=== PATIENT | male | born 1940 | race Hispanic/Latino ===

== ENCOUNTER 2016-10-18 08:32 | Observation (INO) | payer MEDICARE, BC ==
[2016-10-18 08:33] VITALS: PULSE 77; BMI 28.7
--- NOTE | 2016-10-18 08:48 | ED PDOC ---
Arrival/HPI - General Time Seen by Provider: 10/18/16 08:35 Historian: Patient - History of Present Illness Narrative History of Present Illness (Text): 10/18/16 08:40 Meek Hein is a 76 year old male, whose past medical history includes cardiac pacemaker, IDDM, and chronic left diabetes foot ulcers, who presents to the emergency department complaining of chest pressure for a few days and associated shortness of breath yesterday. Patient also states that he experiences constipation for 6 days. Patient says he took suppository treatments with no relief. Patient denies any other complaints at this time. PMD: Dr. Megha Milligan Time/Duration: 24 hours (shortness of breath), < week (chest pressure) Symptom Onset: Gradual Symptom Course: Unchanged Activities at Onset: Rest Context: Home Past Medical History - Provider Review Nursing Documentation Reviewed: Yes - Cardiac Hx Cardiac Disorders: Yes Hx Angina: No Hx Cardiac Arrhythmia: No Hx Circulatory Problems: Yes Hx Congestive Heart Failure: Yes Hx Heart Murmur: No Hx Heart Transplant: No Hx Hypertension: Yes Hx Pacemaker: Yes Hx Peripheral Edema: Yes Hx Peripheral Vascular Disease: Yes Other/Comment: Coronary Artery Bypass Graft - Pulmonary Hx Respiratory Disorders: No - Neurological Hx Neurological Disorder: Yes (neuropathy b/l ankles/feet/no feeling) - HEENT Hx Cataracts: Yes Hx Glaucoma: Yes Hx Macular Degeneration: Yes - Renal Hx Renal Disorder: No - Endocrine/Metabolic Hx Endocrine Disorders: Yes Hx Diabetes Mellitus Type 2: Yes - Hematological/Oncological Hx Blood Disorders: No - Integumentary Hx Dermatological Disorder: No Hx Basal Cell Carcinoma: No - Musculoskeletal/Rheumatological Hx Musculoskeletal Disorders: Yes Hx Arthritis: Yes Hx Back Pain: Yes Hx Falls: Yes Hx Fractures: Yes Hx Herniated Disk: Yes Hx Unsteady Gait: Yes - Gastrointestinal Hx Gastrointestinal Disorders: Yes Other/Comment: Chronic Diarrhea - Genitourinary/Gynecological Hx Genitourinary Disorders: Yes Other/Comment: Diarrhea - Psychiatric Hx Psychophysiologic Disorder: No Hx Substance Use: No - Surgical History Hx Cardiac Catheterization: Yes Hx Coronary Stent: Yes Hx Open Heart Surgery: Yes Hx Valve Replacement: Yes Family/Social History - Physician Review Nursing Documentation Reviewed: Yes Family/Social History: No Known Family HX Smoking Status: Never Smoked Hx Alcohol Use: No Hx Substance Use: No Allergies/Home Meds Allergies/Adverse Reactions: Allergies No Known Allergies Allergy (Verified 03/06/17 16:28) Home Medications: Home Meds Medication Instructions Recorded Confirmed Carvedilol [Coreg] 3.125 mg PO BID 11/02/13 10/18/16 Furosemide [Lasix] 20 mg PO BID 11/02/13 10/18/16 amLODIPine [Norvasc] 10 mg PO DAILY 11/02/13 10/18/16 Aspirin [Ecotrin] 81 mg PO DAILY 04/28/16 10/18/16 Digoxin [Digitek] 125 mcg PO DAILY 04/28/16 10/18/16 Brimonidine 0.15% [Alphagan P 1 drop RIGHTEYE TID 05/31/16 10/18/16 0.15% Opht] Insulin Detemir [Levemir] 10 units SC HS 05/31/16 10/18/16 Ciprofloxacin [Cipro] 500 mg PO BID 10/18/16 10/18/16 Dorzolamide 2%/Timolol 0.5% 1 drop OD BID 10/18/16 10/18/16 [Cosopt 2%-0.5% Opht] Insulin Lispro Mix 75/25 [humalog 10 units SC TID 10/18/16 10/18/16 Mix 75/25 75 U/Ml-25 U/Ml 10 Ml] Sulfamethoxazole/Trimethoprim 160 - 800 mg PO BID 10/18/16 10/18/16 [Bactrim Ds Tablet] Physical Exam - Physical Exam Narrative Physical Exam (Text): - Review of Systems Constitutional: Normal. absent: Fatigue, Weight Change, Fevers Eyes: Normal ENT: Normal Respiratory: Shortness of breath absent: Cough, Sputum Cardiovascular: Chest Pressure absent: Palpitations, Syncope Gastrointestinal: Constipation absent: Abdominal pain, Diarrhea, Nausea, Vomiting Genitourinary: Normal. absent: Dysuria, Frequency, Hematuria Musculoskeletal: Normal. absent: Arthralgias, Back Pain, Neck Pain Skin: Normal Neurological: Normal absent: Focal Weakness Endocrine: Normal Hemo/Lymphatic: Normal Psychiatric: Normal - Physical exam Patient appears age appropriate, speaking full sentences without difficulty. - Systems Exam Head: Present: Atraumatic, Normocephalic Pupils: Present: PERRL Extraocular Muscles: Present: EOMI Conjunctiva: Present: Normal Mouth: Present: Moist Mucous Membranes Neck: Present: Normal Range of Motion. No: MIDLINE TENDERNESS, Paraspinal Tenderness Respiratory/Chest: Present: Clear to Auscultation, Good Air Exchange. No: Respiratory Distress, Accessory Muscle Use, Tachypnic Cardiovascular: Present: Regular Rate and Rhythm, Normal S1, S2, Peripheral Pulses Present. No: Murmurs Abdomen: Present: Normal Bowel Sounds, No: Tenderness, Peritoneal Signs, Rebound, Guarding, Distention Back: Present: Normal Inspection. No: Midline Tenderness, Paraspinal Tenderness Upper Extremity: Present: Normal Inspection. No: Cyanosis, Edema Lower Extremity: Left foot cast and Right foot dressing. Neurological: Present: GCS=15, Speech Normal, cranial nerves II through XII fully intact with no cerebellar abnormality, neuro-sensory fully intact. No focal neurological deficits. Skin: Present: Warm, Dry, Normal Color. No: Rashes Lymphatic: Present: OX3, NI, NC Psychiatric: Present: Alert, Oriented x 3, Normal Insight, Normal Concentration Vital Signs Reviewed: Yes Vital Signs Temp Pulse Pulse Resp BP BP Pulse Ox 10/18/16 16:16 79 18 155/76 H 97 10/18/16 15:16 78 18 152/67 H 97 10/18/16 14:16 74 18 142/61 97 10/18/16 13:17 75 18 142/61 10/18/16 11:41 78 18 150/76 98 10/18/16 10:03 76 16 126/70 97 10/18/16 09:32 81 18 126/70 98 10/18/16 08:33 97.8 F 83 83 16 135/63 135/63 93 L Temperature: Afebrile Blood Pressure: Normal Pulse: Regular Respiratory Rate: Normal Appearance: Positive for: Well-Appearing, Non-Toxic, Comfortable Pain Distress: None Mental Status: Positive for: Alert and Oriented X 3 Medical Decision Making ED Course and Treatment: 10/18/16 08:40 Impression: 76 year old male complaining of chest pressure for a few days and associated shortness of breath yesterday. Pt also c/o constipation. Abd soft/nt/nd, +BS in all 4 q's Differential Diagnosis included but are not limited to: ACS, PNA, dehydration Plan: -- Abdominal X-ray -- Chest X-ray -- Labs -- Aspirin -- Reassess and disposition Prior Visits: Notes and results from previous visits were reviewed. Patient last seen in the ED on 05/31/16 for increasing redness to left foot. Patient was admitted to hospitalist care for further evaluation. Progress Notes: 10/18/16 10:43 EKG is paced, 83bpm. interpreted by me. pt's Cre 2.5, BUN elevated. BNP lower than previous. will admin 500cc NS pt aware of plan to be obs'd for card evaluation imaging pending 10/18/16 13:[address] Milligan, accepted pt to tele/obs Stevenson Peterson and Demetris on consult pt in no distress, aware of and agrees with plan 10/18/16 13:58 Chest X-ray: Dictator : Seth Gonsales MD FINDINGS: LUNGS:Linear atelectasis in the right mid lung. Minimal bibasilar atelectasis PLEURA:No significant pleural effusion identified, no pneumothorax apparent. CARDIOVASCULAR:Normal. OSSEOUS STRUCTURES:Sternal wires VISUALIZED UPPER ABDOMEN:Normal. OTHER FINDINGS:Dual lead pacemaker IMPRESSION: Minimal bilateral atelectasis 10/18/16 14:00 Abdominal X-ray: Dictator : Seth Gonsales MD FINDINGS: BOWEL:Normal. No obstruction. No free air. BONES:Normal. OTHER FINDINGS:None. IMPRESSION: No active disease. - Lab Interpretations Lab Results: 10/18/16 09:20 10/18/16 09:20 Lab Results 10/18/16 09:30: POC Glucose (mg/dL) 126 H 10/18/16 09:20: Sodium 135, Potassium 4.7, Chloride 104, Carbon Dioxide 19 L, Anion Gap 17, BUN 34 H, Creatinine 2.5 H, Est GFR ( Amer) 31, Est GFR ( Non-Af Amer) 25, Random Glucose 117 H, Calcium 8.6, Total Bilirubin 0.5, AST 34 , ALT 26, Alkaline Phosphatase 99, Lactate Dehydrogenase 453, Total Creatine Kinase 70, Troponin I 0.02 D, NT-Pro-B Natriuret Pep 7020 H, Total Protein 7.9 , Albumin 3.8, Globulin 4.1, Albumin/Globulin Ratio 0.9 L 10/18/16 09:20: PT 13.4 H, INR 1.24 H, APTT 31.3 H 10/18/16 09:20: WBC 5.4, RBC 3.38 L, Hgb 9.5 L, Hct 27.8 L, MCV 82.2, MCH 28.1, MCHC 34.2, RDW 14.2, Plt Count 183, MPV 8.3, Gran % 72.3 H, Lymph % (Auto) 19.8 L, [place] % (Auto) 5.8, Eos % (Auto) 1.5, Baso % (Auto) 0.6, Gran # 3.87, Lymph # 1.1 L, [place] # 0.3, Eos # 0.1, Baso # 0.03 I have reviewed the lab results: Yes - RAD Interpretation Radiology Orders: 10/18/16 08:52 ABDOMEN MULTIPLE VIEW (w/OBL) [RAD] Stat 10/18/16 08:53 CHEST PORTABLE [RAD] Stat - Medication Orders Current Medication Orders: Amlodipine Besylate (Norvasc) 10 mg PO DAILY [facility] Aspirin (Aspirin Chewable) 81 mg PO DAILY [facility] Atorvastatin Calcium (Lipitor) 10 mg PO DAILY [facility] Carvedilol (Coreg) 6.25 mg PO BID [facility] Last Admin: 10/18/16 17:47 Dose: 6.25 mg Ciprofloxacin (Cipro) 500 mg PO Q12 [facility] PRN Reason: Protocol Stop: 10/19/16 18:11 Last Admin: 10/18/16 22:23 Dose: 500 mg Digoxin (Lanoxin) 0.125 mg PO MWF [facility] Hydralazine HCl (Apresoline) 10 mg PO QID PRN PRN Reason: For SBP>170 and Diastolic>100 Insulin Detemir (Levemir) 0 unit SC HS [facility] Last Admin: 10/18/16 22:23 Dose: 5 unit Insulin Human Regular (Humulin R Low) 0 units SC ACHS [facility] PRN Reason: Protocol Last Admin: 10/18/16 22:18 Dose: Not Given Non-Admin Reason: Blood Sugar Parameter Insulin Lispro Protam/Lispro Human (Humalog Mix 75/25) 8 units SC ACTID [facility] Trimethoprim/Sulfamethoxazole (Bactrim Ds Tab) 1 tab PO BID [facility] PRN Reason: Protocol Discontinued Medications Aspirin (Aspirin Chewable) 324 mg PO STAT STA Stop: 10/18/16 08:53 Last Admin: 10/18/16 09:03 Dose: 324 mg Carvedilol (Coreg) 3.125 mg PO BID [facility] Sodium Chloride (Sodium Chloride 0.9%) 500 mls @ 1,000 mls/hr IV .Q30M STA Stop: 10/18/16 11:03 Last Admin: 10/18/16 11:21 Dose: 1,000 mls/hr Sodium Chloride (Sodium Chloride 0.9%) 1,000 mls @ 50 mls/hr IV .Q20H [facility] Stop: 10/18/16 23:59 Last Admin: 10/18/16 16:24 Dose: 50 mls/hr Insulin Lispro Protam/Lispro Human (Humalog Mix 75/25) 8 units SC ACTID [facility] Last Admin: 10/18/16 17:34 Dose: Not Given Non-Admin Reason: Blood Sugar Parameter Lactulose (Enulose) 20 gm PO ONCE STA Stop: 10/18/16 15:42 Last Admin: 10/18/16 16:20 Dose: 20 gm Pneumococcal Polyvalent Vaccine (Pneumovax 23 Vaccine) 0.5 ml IM .ONCE ONE Stop: 10/18/16 19:52 Disposition/Present on Arrival - Present on Arrival Any Indicators Present on Arrival: No History of DVT/PE: No History of Uncontrolled Diabetes: Yes Urinary Catheter: No History Surgical Site Infection Following: None - Disposition Have Diagnosis and Disposition been Completed?: Yes Diagnosis: Chest pain Disposition: HOSPITALIZED Disposition Time: 13:54 Patient Plan: Observation Patient Problems: Current Active Problems Problem Status Onset Chest pain Acute Condition: STABLE
[2016-10-18 09:39] LABS: BASO # 0.03 K/mm3 (0.0-2.0); BASO % 0.6 % (0.0-3.0); EOS # 0.1 (0.0-0.7); EOS % 1.5 % (1.5-5.0); GRAN # 3.87 (1.4-6.5); GRAN % 72.3 % (50.0-68.0); HEMOGLOBIN 9.5 gm/dL (14.0-18.0); LYMPH # 1.1 (1.2-3.4); LYMPH % 19.8 % (22.0-35.0); MEAN CELL VOLUME 82.2 fL (80.0-105.0); MEAN CORPUSCULAR HEMOGLOBIN 28.1 pg (25.0-35.0); MEAN CORPUSCULAR HGB CONC 34.2 g/dl (31.0-37.0); MEAN PLATELET VOLUME 8.3 fl (7.0-11.0); MONO # 0.3 (0.1-0.6); MONO % 5.8 % (1.0-6.0); PLATELET COUNT 183 10^3/uL (120.0-450.0); RBC 3.38 10^6/uL (3.5-6.1); RED CELL DISTRIBUTION WIDTH 14.2 % (11.5-14.5); WHITE BLOOD COUNT 5.4 10^3/ul (4.5-11.0)
[2016-10-18 09:48] LABS: INR 1.24 (0.93-1.08); PARTIAL THROMBOPLASTIN TIME 31.3 Seconds (23.7-30.8); PROTHROMBIN TIME 13.4 Seconds (9.9-11.8)
[2016-10-18 09:56] LABS: ALB/GLOB RATIO 0.9 (1.1-1.8); ALBUMIN 3.8 g/dL (3.0-4.8); CALCIUM 8.6 mg/dL (8.4-10.5)
[2016-10-18 10:09] LABS: TROPONIN I 0.02 ng/mL
[2016-10-18] MEDS ORDERED: Sodium Chloride 0.9% 500 ML IV STA (10:34)
--- NOTE | 2016-10-18 12:47 | RAD ---
HISTORY: abd pain, hx of ilius COMPARISON: No prior. FINDINGS: BOWEL: Normal. No obstruction. No free air. BONES: Normal. OTHER FINDINGS: None. IMPRESSION: No active disease.
--- NOTE | 2016-10-18 12:49 | RAD ---
HISTORY: cough COMPARISON: 06/08/2016 FINDINGS: LUNGS: Linear atelectasis in the right mid lung. Minimal bibasilar atelectasis PLEURA: No significant pleural effusion identified, no pneumothorax apparent. CARDIOVASCULAR: Normal. OSSEOUS STRUCTURES: Sternal wires VISUALIZED UPPER ABDOMEN: Normal. OTHER FINDINGS: Dual lead pacemaker IMPRESSION: Minimal bilateral atelectasis
[2016-10-18] MEDS ORDERED: Sodium Chloride 0.9% 1,000 ML IV SCH (15:45)
[2016-10-18] MEDS ORDERED: Insulin Lispro (humaLOG) MIX 75/25(10 ml) SC SCH (16:30)
[2016-10-18] MEDS: Insulin Reg-LOW-Coverage SC SCH ×2 (16:56→22:18)
[2016-10-18 19:15] LABS: TROPONIN I 0.02 ng/mL
[2016-10-18] MEDS ORDERED: Pneumococcal 23-Valent Vaccine IM ONE (19:51)
--- NOTE | 2016-10-18 21:10 | CARD ---
APPROVED REPORT EKG Measurement Heart [id number] <Conclusion> Electronic ventricular pacemaker Complete capture
[2016-10-18] MEDS ORDERED: INSULIN DETEMIR SC SCH (22:00)
[2016-10-18] MEDS ORDERED: [UNRECOGNIZED DRUG - OTHER] SC SCH (22:00)
[2016-10-19 01:02] LABS: TROPONIN I 0.02 ng/mL
[2016-10-19 02:25] VITALS: O2SAT 96
[2016-10-19 07:31] LABS: BASO # 0.03 K/mm3 (0.0-2.0); BASO % 0.7 % (0.0-3.0); EOS # 0.2 (0.0-0.7); GRAN # 2.92 (1.4-6.5); GRAN % 65.1 % (50.0-68.0); HEMOGLOBIN 9.2 gm/dL (14.0-18.0); LYMPH % 22.9 % (22.0-35.0); MEAN CELL VOLUME 83.6 fL (80.0-105.0); MEAN CORPUSCULAR HEMOGLOBIN 27.9 pg (25.0-35.0); MEAN CORPUSCULAR HGB CONC 33.3 g/dl (31.0-37.0); MEAN PLATELET VOLUME 8.7 fl (7.0-11.0); MONO # 0.3 (0.1-0.6); MONO % 7.3 % (1.0-6.0); PLATELET COUNT 198 10^3/uL (120.0-450.0); RED CELL DISTRIBUTION WIDTH 14.4 % (11.5-14.5); WHITE BLOOD COUNT 4.5 10^3/ul (4.5-11.0)
[2016-10-19 07:42] LABS: ALB/GLOB RATIO 0.9 (1.1-1.8); ALBUMIN 3.8 g/dL (3.0-4.8); ALT/SGPT 28 U/L (7-56); AST/SGOT 36 U/L (15-59); BLOOD UREA NITROGEN 31 mg/dL (7-21); CALCIUM 8.6 mg/dL (8.4-10.5); GFR AFRICAN-AMERICAN 38; GFR NON-AFRICAN AMERICAN 31; HDL CHOLESTEROL 31 mg/dL (29-60); MAGNESIUM 2.5 mg/dL (1.7-2.2); URIC ACID 6.5 mg/dL (3.5-8.5)
[2016-10-19 07:49] LABS: TROPONIN I 0.02 ng/mL
[2016-10-19 07:58] LABS: LDL CHOLESTEROL < 30 mg/dL (0-129)
--- NOTE | 2016-10-19 08:46 | CON ---
DATE: 10/18/2016 REASON FOR CONSULTATION: Chest pain, abdominal pain, constipation 5 days, and cardiac evaluation. BRIEF CLINICAL HISTORY: This is a 76-year-old male with past medical history significant for coronary artery disease status post CABG in 2006 5-vessel, history of pacemaker, diabetes, hypertension, hyperlipidemia, severe PAD, left foot ulcer, constipation 5 days, developed abdomen pain and then patient developed left-sided chest pain at home, associated with some shortness of breath, so decided to come to the emergency room. Currently, the patient is chest pain free as well as abdominal pain. No episode of chest pain now. Past history is significant for coronary artery disease, diabetes, hypertension, hyperlipidemia, sick sinus syndrome status post permanent pacemaker,coronary artery disease, CABG 5-vessel in 05/30/2006, history of PAD status post recently peripheral intervention done on 06/07/2016 then the patient went into pulmonary edema, diabetes, hypertension, nonhealing ulcer on the left side, using oxygen chamber. Recent cardiac work up as follows. The patient has stress test on 06/09/2016 that showed abnormal myocardial perfusion study, fixed anteroseptal defect, no reversible ischemia, ejection fraction 44% when compared from the previous study of 11/02/2013, the perfusion pattern is similar dated 06/09/2016. The patient had echocardiography also on 06/08/2016 that showed ejection fraction 45%, trace aortic regurgitation status post MV repair, previous mitral regurgitation, mild tricuspid regurgitation with RV systolic pressure of 41,history of coronary artery disease, CABG, status post 5-vessel CABG on 05/30/2006 as well as closure of the PFO, as well as mitral valve repair. Grafted as follows; 1. Left internal mammary artery to LAD. 2. Saphenous vein graft to the diagonal 1. 3. Saphenous graft to the obtuse marginal 1 and saphenous graft to obtuse marginal 2 and saphenous venous graft to LPDA, history of PFO repair, patent foramen ovale repair, status post mitral valve repair, later on patient had in 2007 plain balloon angioplasty of circumflex was done, later on repeat cauterization 07/17/2008, the cauterization showed patent graft, medical treatment recommended, recently peripheral intervention was done. On 06/07/2012, the patient developed fluid overload and developed CHF with one episode of chest pain with a troponin remain negative at that time. As mentioned, last cauterization on 07/17/2008 showed severe triple vessel disease, patent hartman to LAD, patent saphenous graft to diagonal 1 and patent saphenous graft sequential to OM1, OM2 and LPDA. Patent 1+ mitral regurgitation with ejection fraction of . SOCIAL HISTORY: Denies any smoking. Denies any history of alcohol abuse, severe PAD. ALLERGIES: NO KNOWN DRUG ALLERGIES. CURRENT MEDICATION: The patient at home was taking hydralazine,amlodipine, Zyvox, ferrous sulphate, digoxin, carvedilol, atorvastatin, and aspirin, REVIEW OF SYSTEMS: As per HPI and found to be negative except as per HPI. PHYSICAL EXAMINATION: GENERAL: Height of the patient is 5 feet, weight of the patient 200 pounds, body mass index 28.7 kg/m2. VITAL SIGNS: Temperature afebrile, heart rate 72, blood pressure 142/51. HEENT: PERRLA. Extraocular muscles are intact. NECK: Supple. No carotid bruit, no thyromegaly. CHEST: Clear to auscultation. HEART: S1 and S2, regular. ABDOMEN: Soft. EXTREMITIES: Clubbing and cyanosis negative. LABORATORY DATA: Blood workup as follows: WBC 5.4, hemoglobin 9.8, hematocrit 27.8, and platelet count 183. Chemistry shows sodium 135, potassium 4.7, chloride 104, carbon dioxide 99, anion gap of 17, BUN 35, and creatinine 2.5. BNP 7020. IMPRESSION: This is a 76-year old male with a past medical history of significant for coronary artery disease, status post coronary artery bypass surgery on 05/30/2006, 5-vessel bypass and patent foramen ovale repair as well as mitral valve repair, history of plain balloon angioplasty in 2007 of the circumflex, history of repeat catheterization on 07/17/2008 patent stent, history of most recent stress test on 06/09/2016, fixed defect, no reversible ischemia, ejection fraction of 31%. Echo shows also ejection fraction of 45%, trace MR, trace TR. Admitted with constipation, abdominal pain, and chest pain one episode, elevated BNP and acute kidney injury. Though, the patient's BNP was elevated, but clinically not in failure, we will start some gentle hydration. Followup CPK and troponin. Resume medications and monitor closely. In addition, we will get lipid profile, TSH and hemoglobin A1c. Thank you for providing this opportunity in taking care of, Meek Hein. We will follow with you. Mary Willson MD
[2016-10-19] MEDS: Insulin Lispro (humaLOG) MIX 75/25(10 ml) SC SCH ×2 (09:35→12:43)
[2016-10-19] MEDS: Insulin Reg-LOW-Coverage SC SCH ×2 (09:36→12:36)
[2016-10-19] MEDS ORDERED: Tmp-Smz 800 mg-160 mg DS Tab PO SCH (10:00)
[2016-10-19] MEDS ORDERED: Sodium Chloride 0.9% 1,000 ML IV SCH (10:15)
[2016-10-19 10:52] LABS: % IRON SATURATION 17 % (20-55); IRON 44 ug/dL (45-180); TOTAL IRON BINDING CAPACITY 262 ug/dL (261-462)
[2016-10-19 11:59] VITALS: BP 144/56; PULSE 68; RESP 19; TEMP 97.9
[2016-10-19] MEDS ORDERED: Iron Complex Polysacch 150mg Cap PO SCH (13:00)
--- NOTE | 2016-10-19 13:37 | PN ---
DATE: 10/19/2016 SUBJECTIVE: The patient denies any chest pain, shortness of breath, or any palpitation, but still feels constipated. PHYSICAL EXAMINATION: GENERAL: Lying flat on the bed, not in apparent distress. VITAL SIGNS: Temperature afebrile, heart rate 71, and blood pressure 159/63. HEENT: PERRLA. Extraocular muscles are intact. NECK: Supple. No carotid bruits or thyromegaly. CARDIOPULMONARY: Heart, S1 and S2. Regular. LUNGS: Chest clear to auscultation. ABDOMEN: Soft. EXTREMITIES: Clubbing and cyanosis negative. LABORATORY DATA: Blood workup as follows: WBC 4.5, hemoglobin 9.8, hematocrit 27.6, and platelet count 198. Yesterday's sodium 135, potassium 4.5, chloride 104, carbon dioxide 19, anion gap of 17, BUN 34, and creatinine 2.5. Today's sodium 138, potassium 4.9, chloride 106, carbon dioxide 28, BUN 31, creatinine 2.1, anion gap of 17, blood sugar 127, total protein , albumin 3.8, albumin-globulin ratio 0.9, troponin 0.02, and TSH 3.77. IMPRESSION: A 76-year-old male with past medical history significant for chronic renal insufficiency, chronic anemia dated way back in May this year, history of coronary artery disease, history of coronary artery bypass graft, 5-vessels 05/30/2006 with closure of the patent foramen ovale and mitral valve repair. At that time, left internal mammary artery was grafted to left anterior descending artery, saphenous vein was grafted to diagonal and the saphenous grafted sequential to obtuse marginal 1, obtuse marginal 2, and left patent diagonal artery, as well as closure, as mentioned, of patent foramen ovale and mitral valve repair was done. Repeat plain balloon angioplasty in 2007 was done of the circumflex. Repeat catheterization in 07/17/2008, patent graft, patent percutaneous transluminal coronary angioplasty site, history of peripheral intervention done earlier this year followed by patient pulmonary edema, and history of renal insufficiency. Last stress test on 06/09/2016, fixed defect noted, possible ischemia, ejection fraction of 31%. Echocardiography shows ejection fraction of 45% with trace mitral regurgitation and trace tricuspid regurgitation admitted with constipation, abdominal pain, and chest pain, so far troponin is negative. No evidence of acute myocardial infarction. In view of worsening renal insufficiency, acute on chronic renal insufficiency, IV fluid was started, yesterday creatinine is 2.5 and today is 2.1. RECOMMENDATIONS: Continue gentle hydration. Monitor electrolyte, though admitting BNP was elevated, but the patient is not clinically failure. We will give one more dose of lactulose and monitor kidney function. If kidney function remained stable, trending down, we will possibly discharge home tomorrow. We will discuss with Dr. Milligan. We will resume all previous medications, avoid nephrotoxic medication, continue baby aspirin, continue carvedilol 6.25 mg daily, continue insulin, continue digoxin Tuesday, Tuesday, and Tuesday, adjusted because of the renal insufficiency, continue amlodipine and p.r.n. hydralazine. Digoxin level today is 0.7. We will follow with you and upon discharge the patient would be followed up with Dr. Milligan. Mary Willson MD
--- NOTE | 2016-10-20 05:23 | CON ---
DATE: 10/19/2016 REFERRING PHYSICIAN: Dr. Milligan and Dr. Willson. REASON FOR CONSULTATION: Evaluation of a patient with known to me with chronic kidney disease stage III, who presents with an elevated creatinine in the setting of just pain. HISTORY OF PRESENT ILLNESS: The patient is a pleasant 76-year-old white male, who has a history of a small left kidney, long history of IDDM, history of diabetic nephropathy, retinopathy and neuropathy. Baseline creatinine is in the 1.4 to 1.7 range. On admission to the hospital for chest pain, yesterday the patient was noted to have a creatinine of 2.5. He did receive some IV fluid hydration. His creatinine is down to 2.1. The patient has a type 4 RTA. He does not use RONALDO inhibitors, angiotensin receptor blockers. He does have anemia in part secondary chronic kidney disease, in part secondary to iron deficiency, history of secondary hyperparathyroidism. History of ASHD status post CABG, 5 vessels. History or permanent pacemaker, history of mitral valve repair, history of valvular heart disease. History of peripheral vascular disease and hyperlipidemia. He has just completing a course of treatment for a left foot ulcer. The patient has his foot in a nonweightbearing cast. He also developed small ulcer on his right foot. He does follow with the wound center and with his returned case inspector. We are asked to evaluate the patient for his elevated creatinine in the setting of chronic kidney disease stage 3. PAST MEDICAL HISTORY: Significant for chronic kidney disease stage 3 with baseline creatinine in the 1.4 to 1.7 range, history of small of kidney, history of IDDM with diabetic nephropathy, retinopathy and neuropathy, history of type 4 RTA with interment hyperkalemia, history of anemia secondary to chronic kidney disease and secondary to iron deficiency, history of secondary hyperparathyroidism, history of ASHD status post CABG, 5 vessels, history of permanent pacemaker, history of mitral valve repair, history of hyperlipidemia, history of peripheral vascular disease with almost completely healed left foot ulcer in a nonweightbearing cast. ALLERGIES: THE PATIENT HAS NO KNOWN ALLERGIES TO MEDICATIONS. MEDICATIONS: At home include that of Lipitor, Norvasc, Bactrim, insulin, Lasix, eye drops, digoxin, Cipro, Coreg, and Ecotrin. Presently in hospital include that of hydralazine, aspirin, Bactrim, Cipro, Coreg, insulin, Lanoxin, Lipitor, Norvasc and normal saline 50 mL an hour, which had been discontinued. SOCIAL HISTORY: The patient does not smoke cigarettes, he does not use alcohol. FAMILY HISTORY: Father of complications of heart disease. Mother of complications of COPD. REVIEW OF SYSTEMS: A 10-point systems reviewed with the patient, all negative except as noted above. GENERAL: The patient states appetite and weight have been stable. ENT: Denies any hearing or visual problems. He does have diabetic retinopathy. PULMONARY: No shortness of breath, no history of COPD, CHF, asthma. CARDIAC: History of coronary artery disease is noted above. GASTROINTESTINAL: No nausea, no vomiting, no diarrhea, no constipation, no abdominal pain. GENITOURINARY: History of chronic kidney disease stage 3 with the baseline creatinine of approximately 1.7. ENDOCRINE: Positive for diabetes mellitus with micro and microvascular complications as noted above. MUSCULOSKELETAL: No complaints. NEUROLOGIC: No history of CVA, TIA, syncope or seizures. HEME/ONC: Positive anemia, secondary chronic kidney disease and iron deficiency. PSYCHIATRIC: History is negative. PHYSICAL EXAMINATION: GENERAL: The patient is currently seen in telemetry. He appears to be stable. VITAL SIGNS: Blood pressure 144/56, temperature 97.9, pulse of 68, respiratory rate of 19, pulse ox is 96%. HEENT: Normocephalic, atraumatic, conjunctivae are pale. Sclerae are nonicteric. Pupils are equal, reactive to light and accommodation. Extraocular muscles are intact. Posterior pharynx is normal. NECK: Supple. No neck vein distention. No thyromegaly, no lymphadenopathy, no bruits. CHEST: Clear to auscultation and percussion. No rales. No rhonchi. No wheezing. CARDIOVASCULAR: Shows regular rate and rhythm without any audible murmurs, rubs or gallops noted. ABDOMEN: Soft. Bowel sounds are normal. No rebound, no guarding, no masses. BACK: No CVT. No spinal tenderness. EXTREMITIES: Show a hard cast, nonweightbearing of his left lower extremity. No edema of his lower extremity bilaterally. He does have an ulcer of his right foot which was not examined. No cyanosis or clubbing. NEUROLOGIC: Shows him to be alert and oriented x3. Positive diabetic neuropathy in his lower extremity. Diminished sensation to touch and absent vibration sense. LABORATORY DATA AND IMAGING: Admitting chest x-ray on 10/18/2016 showed linear atelectasis in the right mid lung, otherwise minimal bibasilar atelectasis, no acute findings. Abdominal x-ray done was negative. Admitting EKG done on 10/18/2016 showed paced rhythm. CBC; white blood cell count 4.5, hemoglobin 9.2, with a platelet count is 198,000. Chemistries; BUN 31 with a creatinine of 2.1 down from a BUN of 34 with a creatinine of 2.5. Electrolytes are normal to exception of CO2 of 20, glucose is 127, calcium is 8.6, phosphorus 4.2 with the magnesium of 2.5, iron saturations were 17%. Liver enzymes are normal. Digoxin level was 0.7. ASSESSMENT: Chronic kidney disease stage 3 with an elevated BUN and creatinine as noted above. The patient has an atrophic left kidney. He also has known diabetic nephropathy. The patient had been using diuretics at home for lower extremity edema. In all likelihood this is playing a role in the elevated BUN and creatinine in a prerenal fashion. The patient did receive cautious IV fluid hydration with lowering of his creatinine down to 2.1 which is closer to his baseline. The patient will be continue using Lasix at home to prevent edema. I did suggest that the patient try and increase his p.o. fluid intake up on discharge. No plans for further IV fluids as the patient is likely going to be discharged home relatively soon. History of insulin-dependent diabetes mellitus with both micro and macrovascular complications. He has diabetic nephropathy, diabetic retinopathy and diabetic neuropathy. History of type 4 renal tubular acidosis. The patient obviously avoids RONALDO inhibitors, angiotensin receptor blockers and renin inhibitors. He has been able to maintain potassium levels in the upper 4-5 range. History of anemia in part secondary to chronic kidney disease, in part secondary to iron deficiency. The patient would be a good candidate for Procrit in an outpatient setting and the patient may start an oral iron supplement. Peripheral vascular disease of lower extremity ulcers. His left foot ulcer is healed. In all likelihood, the patient will have his nonweightbearing cast removed soon. New right foot ulcer. The patient is following with the wound center and his returned case inspector. History of secondary hyperparathyroidism. Phosphorous level appears to be normal. The patient has had PTH and vitamin D levels done in the outpatient setting. History of arteriosclerotic heart disease; coronary artery bypass graft, 5 vessels; permanent pacemaker and mitral valve repair. These all appear to be stable. History of hyperlipidemia, the patient will continue on stain therapy. PLAN: The patient essentially has been cleared by Dr. Willson, his imaging clerk for his episode of chest pain which brought him in to the emergency room. His cardiac enzymes appear to be negative. Continue follow up with podiatry in the wound center. Continue present medication. Encourage the patient to adequately hydrate himself in the outpatient setting. The patient may return to using diuretic therapy as with out diuretic she will develop lower extremity edema. Case discussed with Dr. Willson in detail. Thank you for letting me part take and share in the care of our mutual patient. Meek Peterson MD
--- NOTE | 2016-10-20 05:24 | CON ---
SUBJECTIVE: The patient is a 76-year-old male well known to the [facility] Wound Care Team, seen at bedside for continued evaluation and management of bilateral diabetic foot ulcerations. The patient had severe left foot ulceration with osteomyelitis of his first metatarsal and hallux that had been treated with long-term IV antibiotics and total contact casting. The total contact cast is still in place. His right foot ulceration is also dressed with a dry sterile dressing. The patient was complaining of chest pressure and shortness of breath for a few days and was admitted yesterday for observation. PAST MEDICAL HISTORY: The patient's medical history is significant for longstanding uncontrolled insulin-dependant diabetes with peripheral neuropathy and peripheral arterial disease, CAD, congestive heart failure, essential hypertension, glaucoma, cataracts, macular degeneration, peripheral vascular disease, peripheral edema, as well as herniated disc and unsteady gait. PAST SURGICAL HISTORY: Includes coronary artery bypass graft, cardiac stenting, cardiac catheterization, and valve replacement. SOCIAL HISTORY: The patient has never . Never smoked. Denies illicit drug use and was a social drinker, but no longer drinks at all. He lives with his sister and her 90-year-old . MEDICATIONS: All medications are noted in MAR. VITAL SIGNS: Reveal a temperature of 97.9, pulse of 68, blood pressure of 144/56, and respiratory rate of 19. LABORATORY FINDINGS: Reveal a white count of 4.5, hemoglobin of 9.2, hematocrit of 27.6, and platelet count of 198. Chest x-ray reveals minimum bilateral atelectasis. Abdominal x-ray reveals no active disease. OBJECTIVE: There is noted to be a total contact cast on the left lower extremity. Right lower extremity presents with nonpalpable pedal pulses, the patient is unable to detect 5.07 g monofilament wire testing. Lower extremity skin presents thin, shining, discolored. Capillary filling time is delayed x5. There is a resolving full-thickness ulceration at the fifth metatarsophalangeal joint area. The ulceration measures approximately 1.8 cm x 1.2 cm x 0.2 cm. The base of the ulcer is primarily granular with some fibrotic tissue disbursement. There is minimal serous drainage. There is no purulence to suggest underlying abscess formation. The wound does not probe to bone. There is no localized cellulitis. There is decreasing edema and erythema of the area. ASSESSMENT: Osteomyelitis of the left hallux with accompanying full-thickness diabetic ulceration, which had undergone 6 weeks of IV antibiotics and is slowly resolving, Reagan grade 2 diabetic right foot ulceration. PLAN: The patient is set for discharge today. The patient was told that we will keep his total contact cast on until Tuesday, at which time he will be at the wound center after his discharge and the cast will be removed and a new one will be applied. In the meantime, we will apply Silvercel, we will apply Xeroform and a dry sterile dressing to the right diabetic foot ulceration. If the patient is discharged some time today, he can come to the wound center prior to 4 o'clock and a new total contact cast will be applied. In the event the patient is not discharged today, we will follow the patient daily with plans to change cast on Tuesday. Marlon Bahena DPM
[2016-10-20] MEDS ORDERED: Digoxin 125 mcg (0.125 mg) Tab PO SCH (10:00)
== END 2016-10-19 16:44 | disposition home or self-care (01) ==
LOC: ED 08:32 → ERH 13:54 → 2RSO 16:44
PROVIDERS: ADMIT Surgery; ATTEND Surgery
DX: R07.9 Chest pain, unspecified (principal); E11.69 Type 2 diabetes mellitus with other specified complication; M86.9 Osteomyelitis, unspecified; D50.9 Iron deficiency anemia, unspecified; D63.1 Anemia in chronic kidney disease; E11.21 Type 2 diabetes mellitus with diabetic nephropathy; E11.22 Type 2 diabetes mellitus with diabetic chronic kidney disease; E11.319 Type 2 diabetes mellitus with unspecified diabetic retinopathy without macular edema; E11.42 Type 2 diabetes mellitus with diabetic polyneuropathy; E11.621 Type 2 diabetes mellitus with foot ulcer; E78.5 Hyperlipidemia, unspecified; H35.30 Unspecified macular degeneration; H40.9 Unspecified glaucoma; I13.0 Hypertensive heart and chronic kidney disease with heart failure and stage 1 through stage 4 chronic kidney disease, or unspecified chronic kidney disease; I25.10 Atherosclerotic heart disease of native coronary artery without angina pectoris; Z79.4 Long term (current) use of insulin; I50.9 Heart failure, unspecified; I73.9 Peripheral vascular disease, unspecified; K59.00 Constipation, unspecified; L97.519 Non-pressure chronic ulcer of other part of right foot with unspecified severity; L97.529 Non-pressure chronic ulcer of other part of left foot with unspecified severity; N18.3 Chronic kidney disease, stage 3 (moderate); N25.81 Secondary hyperparathyroidism of renal origin; N27.0 Small kidney, unilateral; Q21.1 Atrial septal defect; Z79.82 Long term (current) use of aspirin; Z79.899 Other long term (current) drug therapy; Z82.5 Family history of asthma and other chronic lower respiratory diseases; Z95.0 Presence of cardiac pacemaker; Z95.1 Presence of aortocoronary bypass graft; M19.90 Unspecified osteoarthritis, unspecified site; M54.9 Dorsalgia, unspecified; R26.81 Unsteadiness on feet; K52.9 Noninfective gastroenteritis and colitis, unspecified; R40.2412 Glasgow coma scale score 13-15, at arrival to emergency department; I08.3 Combined rheumatic disorders of mitral, aortic and tricuspid valves; N17.9 Acute kidney failure, unspecified; E11.65 Type 2 diabetes mellitus with hyperglycemia; M51.26 Other intervertebral disc displacement, lumbar region; Z95.5 Presence of coronary angioplasty implant and graft; Z95.2 Presence of prosthetic heart valve; H26.9 Unspecified cataract; Z87.81 Personal history of (healed) traumatic fracture
CPT/HCPCS: 36415; 71010; 74022; 80053; 80061; 80162; 82550; 82607; 82728; 82747; 82948; 83036; 83540; 83550; 83615; 83735; 83880; 84100; 84443; 84484; 84550; 85025; 85610; 85730; 93005; 99285; G0378; J7040

== ENCOUNTER 2017-05-30 14:39 | Inpatient (IN) | payer MEDICARE, BC ==
[2017-05-30 14:39] VITALS: BMI 28.7
--- NOTE | 2017-05-30 16:11 | ED PDOC ---
Arrival/HPI - General Chief Complaint: Lower Extremity Problem/Injury - History of Present Illness Narrative History of Present Illness (Text): 05/30/17 16:11 Pt is a 77 yo M with PMH of cardiac pacemaker, IDDM, and chronic left diabetes foot ulcers presents to Emergency department sent by Dr. Marie for non- healing ulcer on right foot. Ulcer is on the lateral, plantar aspect of right forefoot. Pt states that ulcer has been present for 11 months and had improved intermittently, but has worsened recently and failed PO abx therapy. Pt states that he due to diabetic neuropathy he has no sensation below the knee bilaterally. Patient states that leg has been swollen during this time. Pt denies CP, SOB, n/v/d, abdominal pain, fever, chills, HANSEN, or dizziness. PMD: Srini Past Medical History - Provider Review Nursing Documentation Reviewed: Yes - Cardiac Hx Cardiac Disorders: Yes Hx Circulatory Problems: Yes Hx Congestive Heart Failure: Yes Hx Hypertension: Yes Hx Pacemaker: Yes Hx Peripheral Edema: Yes Hx Peripheral Vascular Disease: Yes Other/Comment: Coronary Artery Bypass Graft - Pulmonary Hx Respiratory Disorders: No - Neurological Hx Neurological Disorder: Yes (neuropathy b/l ankles/feet/no feeling) - HEENT Hx HEENT Disorder: Yes Hx Cataracts: Yes Hx Glaucoma: Yes Hx Macular Degeneration: Yes - Renal Hx Renal Disorder: No - Endocrine/Metabolic Hx Endocrine Disorders: Yes Hx Diabetes Mellitus Type 2: Yes - Hematological/Oncological Hx Blood Disorders: No - Integumentary Hx Dermatological Disorder: No Hx Basal Cell Carcinoma: No - Musculoskeletal/Rheumatological Hx Musculoskeletal Disorders: Yes Hx Arthritis: Yes Hx Back Pain: Yes Hx Falls: Yes Hx Fractures: Yes Hx Herniated Disk: Yes Hx Unsteady Gait: Yes - Gastrointestinal Hx Gastrointestinal Disorders: Yes Other/Comment: Chronic Diarrhea - Genitourinary/Gynecological Hx Genitourinary Disorders: Yes Other/Comment: Diarrhea - Psychiatric Hx Psychophysiologic Disorder: No Hx Substance Use: No - Surgical History Hx Cardiac Catheterization: Yes Hx Coronary Stent: Yes Hx Open Heart Surgery: Yes Hx Valve Replacement: Yes - Anesthesia Hx Anesthesia: Yes Family/Social History - Physician Review Nursing Documentation Reviewed: Yes Family/Social History: Other (Non-contributory) Smoking Status: Never Smoked Hx Alcohol Use: No Hx Substance Use: No Allergies/Home Meds Allergies/Adverse Reactions: Allergies No Known Allergies Allergy (Verified 05/30/17 15:17) Home Medications: Home Meds Medication Instructions Recorded Confirmed Carvedilol [Coreg] 3.125 mg PO BID 11/02/13 05/30/17 Furosemide [Lasix] 40 mg PO BID 11/02/13 05/30/17 amLODIPine [Norvasc] 10 mg PO DAILY 11/02/13 05/30/17 Aspirin [Ecotrin] 81 mg PO DAILY 04/28/16 05/30/17 Digoxin [Digitek] 125 mcg PO DAILY 04/28/16 05/30/17 Brimonidine 0.15% [Alphagan P 1 drop RIGHTEYE TID 05/31/16 05/30/17 0.15% Opht] Insulin Detemir [Levemir] 10 units SC HS 05/31/16 05/30/17 Dorzolamide 2%/Timolol 0.5% 1 drop OD BID 10/18/16 05/30/17 [Cosopt 2%-0.5% Opht] Insulin Lispro Mix 75/25 [humalog 10 units SC TID 10/18/16 05/30/17 Mix 75/25 75 U/Ml-25 U/Ml 10 Ml] Ferrous Sulfate [Feosol] 1 tab PO DAILY 05/30/17 05/30/17 Potassium Chloride 20 meq PO DAILY 05/30/17 05/30/17 Review of Systems - Review of Systems Constitutional: Normal Eyes: Normal ENT: Normal Respiratory: Normal Cardiovascular: Normal Gastrointestinal: Normal Genitourinary Male: Normal Musculoskeletal: Normal Skin: Ulcer (right foot) Neurological: Other (numbness below knee b/l) Endocrine: Normal Hemo/Lymphatic: Normal Psychiatric: Normal Physical Exam Vital Signs Reviewed: Yes Vital Signs Temp Pulse Resp BP Pulse Ox 05/30/17 19:31 159/60 H 05/30/17 19:27 79 159/60 H 05/30/17 19:26 79 19 159/60 H 98 05/30/17 17:56 80 18 155/70 H 97 05/30/17 15:22 98.3 F 74 17 145/62 96 Temperature: Afebrile Blood Pressure: Normal Pulse: Regular Respiratory Rate: Normal Appearance: Positive for: Well-Appearing Pain Distress: None Mental Status: Positive for: Alert and Oriented X 3 - Systems Exam Head: Present: Atraumatic, Normocephalic Extroacular Muscles: Present: EOMI Mouth: Present: Moist Mucous Membranes Neck: Present: Normal Range of Motion Respiratory/Chest: Present: Clear to Auscultation. No: Respiratory Distress, Accessory Muscle Use, Wheezes, Rales, Rhonchi Cardiovascular: Present: Regular Rate and Rhythm, Normal S1, S2. No: Murmurs, Rub, Gallop Abdomen: No: Tenderness, Distention, Peritoneal Signs, Rebound, Guarding Back: Present: Normal Inspection Upper Extremity: Present: Normal Inspection Lower Extremity: Present: Other (right leg edema inferor to tibial tuberosity. 1 cm ulcer noted on plantar aspect of right forefoot near 5th metatarsal with purulent base.) Neurological: Present: GCS=15, CN II-XII Intact. No: Normal Sensory Function ( minimal to no sensation below tibial tuberosity b/l) Skin: Present: Warm, Dry, Normal Color Psychiatric: Present: Alert, Oriented x 3 Medical Decision Making ED Course and Treatment: 05/30/17 16:15 Assessment: 77 yo M presents to ED with non-healing ulcer of the right foot. Plan: - CBC - CMP - ESR - Blood culture - Right foot xray - LE venous doppler - IVF - Vanc/Zosyn 05/30/17 18:16 LE venous doppler negative for DVT Left foot x-ray as read by myself shows erosion of the distal 5th metatarsal. Follow up with radiologist read. 05/30/17 18:[address] Milligan, agrees with plan and accepts patient under her service. Requests reconciliation of medications per MAY, hold home insulin and start regular insulin sliding scale, diabetic diet, Dr. Larkin consultation, and Dr. Marie consultation. Patient admitted inpatient to med/surg. - Lab Interpretations Lab Results: 05/30/17 16:32 05/30/17 16:32 Lab Results 05/30/17 16:32: Sodium 142, Potassium 4.7, Chloride 104, Carbon Dioxide 26, Anion Gap 16, BUN 30 H, Creatinine 1.6 H, Est GFR ( Amer) 51, Est GFR ( Non-Af Amer) 42, Random Glucose 89, Calcium 9.3, Total Bilirubin 0.6, AST 30, ALT 24, Alkaline Phosphatase 101, Total Protein 8.5 H, Albumin 4.3, Globulin 4.2 , Albumin/Globulin Ratio 1.0 L 05/30/17 16:32: WBC 7.7 D, RBC 3.85, Hgb 10.9 L, Hct 32.6 L, MCV 84.7, MCH 28.3 , MCHC 33.4, RDW 16.0 H, Plt Count 207, MPV 9.7, Gran % 65.3, Lymph % (Auto) 24.4, [place] % (Auto) 7.8 H, Eos % (Auto) 2.1, Baso % (Auto) 0.4, Gran # 5.02, Lymph # (Auto) 1.9, [place] # (Auto) 0.6, Eos # (Auto) 0.2, Baso # (Auto) 0.03, ESR 56 H - RAD Interpretation Radiology Orders: 05/30/17 16:07 FOOT RIGHT 3 VIEWS ROUTINE [RAD] Stat 05/30/17 16:09 DUPLEX LOWER EXTRM VEIN RIGHT [US] Stat - Medication Orders Current Medication Orders: Amlodipine Besylate (Norvasc) 10 mg PO DAILY [facility] Aspirin (Ecotrin) 81 mg PO DAILY [facility] Atorvastatin Calcium (Lipitor) 10 mg PO DIN [facility] Last Admin: 05/30/17 19:26 Dose: 10 mg Carvedilol (Coreg) 3.125 mg PO BID [facility] Last Admin: 05/30/17 19:27 Dose: 3.125 mg [facility] Pulse and Blood Pressure Document 05/30/17 19:27 MD (Rec: 05/30/17 19:[id number] Pulse Pulse Rate (60-90) 79 Blood Pressure Blood Pressure (100/60-150/90) 159/60 Digoxin (Digoxin) 0.125 mg PO 1400 [facility] Ferrous Sulfate (Feosol) 324 mg PO DAILY [facility] Furosemide (Lasix) 40 mg PO BID [facility] Last Admin: 05/30/17 19:31 Dose: 40 mg MAR Blood Pressure Document 05/30/17 19:31 [place] (Rec: 05/30/17 19:31 [id number] Blood Pressure Blood Pressure (100/60-150/90) 159/60 Piperacillin Sod/Tazobactam Sod (Zosyn 3.375 In Ns 100ml) 100 mls @ 200 mls/hr IVPB Q6 [facility] PRN Reason: Protocol Stop: 05/31/17 00:29 Last Admin: 05/30/17 16:40 Dose: 200 mls/hr eMAR Start Stop Document 05/30/17 16:40 LA (Rec: 05/30/17 16:40 LA [id number]) Intravenous Solution Start Date 05/30/17 Start Time 16:40 Sodium Chloride (Sodium Chloride 0.9%) 1,000 mls @ 100 mls/hr IV .Q10H DORIS Last Admin: 05/30/17 19:23 Dose: 100 mls/hr eMAR Start Stop Document 05/30/17 19:23 LA (Rec: 05/30/17 19:24 LA [id number]) Intravenous Solution Start Date 05/30/17 Start Time 19:23 Insulin Human Regular (Humulin R Low) 0 units SC ACHS DORIS PRN Reason: Protocol Oxychlorosene Sodium (Clorpactin Wcs-90) 2 gm TOP BID DORIS Potassium Chloride (K-Dur 20 Meq Er Tab) 20 meq PO BRK DORIS Discontinued Medications Vancomycin HCl (Vancomycin 1gm) 1 gm in 250 mls @ 167 mls/hr IVPB STAT STA PRN Reason: Protocol Stop: 05/30/17 19:48 Last Admin: 05/30/17 19:26 Dose: 167 mls/hr eMAR Start Stop Document 05/30/17 19:26 LA (Rec: 05/30/17 19:26 LA [id number]) Intravenous Solution Start Date 05/30/17 Start Time 19:26 Disposition/Present on Arrival - Present on Arrival Any Indicators Present on Arrival: No History of DVT/PE: No History of Uncontrolled Diabetes: Yes Urinary Catheter: No History of Decub. Ulcer: No History Surgical Site Infection Following: None - Disposition Have Diagnosis and Disposition been Completed?: Yes Diagnosis: Non-healing ulcer of right foot Disposition: HOSPITALIZED Disposition Time: 18:55 Patient Plan: Admission Patient Problems: Current Active Problems Problem Status Onset Non-healing ulcer of right foot Acute Condition: STABLE
[2017-05-30] MEDS: Piperacillin/Tazobact 3.375 gm 100 ML IVPB SCH (16:40)
[2017-05-30 17:01] LABS: BASO # 0.03 K/mm3 (0.0-2.0); BASO % 0.4 % (0.0-3.0); EOS # 0.2 (0.0-0.7); EOS % 2.1 % (1.5-5.0); GRAN # 5.02 (1.4-6.5); GRAN % 65.3 % (50.0-68.0); HEMOGLOBIN 10.9 g/dL (14.0-18.0); LYMPH # 1.9 (1.2-3.4); LYMPH % 24.4 % (22.0-35.0); MEAN CELL VOLUME 84.7 fl (80.0-105.0); MEAN CORPUSCULAR HEMOGLOBIN 28.3 pg (25.0-35.0); MEAN CORPUSCULAR HGB CONC 33.4 g/dl (31.0-37.0); MEAN PLATELET VOLUME 9.7 fl (7.0-11.0); MONO # 0.6 (0.1-0.6); MONO % 7.8 % (1.0-6.0); RBC 3.85 10^6/uL (3.5-6.1); WHITE BLOOD COUNT 7.7 10^3/ul (4.5-11.0)
[2017-05-30 17:07] LABS: ALBUMIN 4.3 g/dL (3.0-4.8); CALCIUM 9.3 mg/dL (8.4-10.5)
[2017-05-30] MEDS ORDERED: Vancomycin 1gm in NS 250ml 1 GM/250 ML BAG IVPB STA (18:19)
[2017-05-30] MEDS: Sodium Chloride 0.9% 1,000 ML IV SCH (19:23)
--- NOTE | 2017-05-30 21:21 | US ---
PROCEDURE: Right lower extremity venous US HISTORY: Leg pain and swelling. Evaluate for DVT. PHYSICIAN(S): Zana Cook M.D. TECHNIQUE: Duplex sonography and color-flow Doppler with graded compression were used to evaluate the deep venous system of the right lower extremity. FINDINGS: The visualized deep venous system of the right lower extremity is sonographically normal and compressible. Normal waveforms and augmentation are seen. There is no sonographic evidence for deep venous thrombosis in the visualized segments of the right lower extremity. IMPRESSION: 1. No sonographic evidence for deep venous thrombosis in the visualized segments of the right lower extremity.
[2017-05-30] MEDS: Insulin Reg-LOW-Coverage SC SCH (22:04)
[2017-05-31] MEDS: Piperacillin/Tazobact 3.375 gm 100 ML IVPB SCH (00:39)
[2017-05-31] MEDS: Insulin Reg-LOW-Coverage SC SCH ×4 (08:04→21:20)
[2017-05-31] MEDS: Potassium Chloride 20 mEq ER Tab PO SCH (08:23)
--- NOTE | 2017-05-31 08:51 | RAD ---
PROCEDURE: Right Foot Radiographs. HISTORY: r/o osteo COMPARISON: None. FINDINGS: BONES: Normal. No fracture. JOINTS: Normal. SOFT TISSUES: Normal. OTHER FINDINGS: None. IMPRESSION: Normal right foot radiographs.
[2017-05-31] MEDS ORDERED: Oxychlorosene Topical 2 gm Packet TOP SCH (10:00)
[2017-05-31] MEDS ORDERED: Vancomycin 1gm in NS 250ml 1 GM/250 ML BAG IVPB STA (13:00)
[2017-05-31] MEDS ORDERED: Piperacillin/Tazobact 2.25gm 2.25 GM/100 ML BAG IVPB STA (13:01)
[2017-05-31] MEDS: Oxychlorosene Topical 2 gm Packet TOP SCH (13:06)
[2017-05-31] MEDS: Digoxin 125 mcg (0.125 mg) Tab PO SCH (13:11)
--- NOTE | 2017-05-31 18:59 | CP.PCM.CON ---
History of Present Illness - History of Present Illness History of Present Illness: Infectious Disease Consultation: May 31, 2017 77 yo male with history of left foot osteomyelitis treated with IV antibiotics. The right foot has ulceration that was noted in wound care in March 2017. Multiple cultures from wound care center of the right foot ulcer showing growth of MSSA, Enterobacter, and Klebsiella over the past year. Last cultuers taken showed MSSA. The patient denies fevers or chills. No other complaints. He was placed in a cast while receiving PO antibiotics of Augmentin for 28 days. When cast was removed, the patient still had purulent drainage from ulceration in the base of the 5th toe lateral metaphalangeal area. PMHx: Diabetes Mellitus Hypertension Chronic CHF Back pain Herniated disc CAD PSHx: Pacemaker placement toe amputations Allergies: NKDA Social Hx: No tobacco, EtOH, or illicit drug use Active Medications Amlodipine Besylate (Norvasc) 10 mg PO DAILY [facility] Last Admin: 05/31/17 09:34 Dose: 10 mg Aspirin (Ecotrin) 81 mg PO DAILY [facility] Last Admin: 05/31/17 09:34 Dose: 81 mg Atorvastatin Calcium (Lipitor) 10 mg PO DIN [facility] Last Admin: 05/31/17 17:01 Dose: 10 mg Carvedilol (Coreg) 3.125 mg PO BID [facility] Last Admin: 05/31/17 17:01 Dose: 3.125 mg Digoxin (Digoxin) 0.125 mg PO 1400 [facility] Last Admin: 05/31/17 13:11 Dose: 0.125 mg Ferrous Sulfate (Feosol) 324 mg PO DAILY [facility] Last Admin: 05/31/17 09:33 Dose: 324 mg Furosemide (Lasix) 40 mg PO BID [facility] Last Admin: 05/31/17 17:01 Dose: 40 mg Sodium Chloride (Sodium Chloride 0.9%) 1,000 mls @ 100 mls/hr IV .Q10H [facility] Last Admin: 05/30/17 19:23 Dose: 100 mls/hr Insulin Human Regular (Humulin R Low) 0 units SC ACHS [facility] PRN Reason: Protocol Last Admin: 05/31/17 17:01 Dose: 2 units Oxychlorosene Sodium (Clorpactin Wcs-90) 2 gm TOP DAILY [facility] Last Admin: 05/31/17 13:06 Dose: Not Given Potassium Chloride (K-Dur 20 Meq Er Tab) 20 meq PO BRK [facility] Last Admin: 05/31/17 08:23 Dose: 20 meq Family Hx: none given ROS: No fevers, chills, nausea, vomiting, diarrhea, headaches, dizziness, chest pain , abdominal pain, melena, hematuria, hematemesis, hematochezia, depression, anxiety. Patient with peripheral neuropathy. Past Patient History - Past Social History Smoking Status: Never Smoked - CARDIAC Hx Cardiac Disorders: Yes Hx Circulatory Problems: Yes Hx Congestive Heart Failure: Yes Hx Hypertension: Yes Hx Pacemaker: Yes Hx Peripheral Edema: Yes Hx Peripheral Vascular Disease: Yes Other/Comment: Coronary Artery Bypass Graft - PULMONARY Hx Respiratory Disorders: No - NEUROLOGICAL Hx Neurological Disorder: Yes (neuropathy b/l ankles/feet/no feeling) - HEENT Hx HEENT Problems: Yes Hx Cataracts: Yes Hx Glaucoma: Yes Hx Macular Degeneration: Yes - RENAL Hx Chronic Kidney Disease: No - ENDOCRINE/METABOLIC Hx Endocrine Disorders: Yes Hx Diabetes Mellitus Type 2: Yes - HEMATOLOGICAL/ONCOLOGICAL Hx Blood Disorders: No - INTEGUMENTARY Hx Dermatological Problems: No Hx Basil Cell: No - MUSCULOSKELETAL/RHEUMATOLOGICAL Hx Musculoskeletal Disorders: Yes Hx Arthritis: Yes Hx Back Pain: Yes Hx Falls: Yes Hx Fractures: Yes Hx Herniated Disk: Yes Hx Unsteady Gait: Yes - GASTROINTESTINAL Hx Gastrointestinal Disorders: Yes Other/Comment: Chronic Diarrhea - GENITOURINARY/GYNECOLOGICAL Hx Genitourinary Disorders: Yes Other/Comment: Diarrhea - PSYCHIATRIC Hx Psychophysiologic Disorder: No Hx Substance Use: No - SURGICAL HISTORY Hx Cardiac Catheterization: Yes Hx Coronary Stent: Yes Hx Open Heart Surgery: Yes Hx Valve Replacement: Yes - ANESTHESIA Hx Anesthesia: Yes Meds Allergies/Adverse Reactions: Allergies Allergy/AdvReac Type Severity Reaction Status Date / Time No Known Allergies Allergy Verified 05/30/17 15:17 - Medications Medications: Current Medications Amlodipine Besylate (Norvasc) 10 mg PO DAILY [facility] Last Admin: 05/31/17 09:34 Dose: 10 mg Aspirin (Ecotrin) 81 mg PO DAILY [facility] Last Admin: 05/31/17 09:34 Dose: 81 mg Atorvastatin Calcium (Lipitor) 10 mg PO DIN [facility] Last Admin: 05/31/17 17:01 Dose: 10 mg Carvedilol (Coreg) 3.125 mg PO BID [facility] Last Admin: 05/31/17 17:01 Dose: 3.125 mg Digoxin (Digoxin) 0.125 mg PO 1400 [facility] Last Admin: 05/31/17 13:11 Dose: 0.125 mg Ferrous Sulfate (Feosol) 324 mg PO DAILY [facility] Last Admin: 05/31/17 09:33 Dose: 324 mg Furosemide (Lasix) 40 mg PO BID [facility] Last Admin: 05/31/17 17:01 Dose: 40 mg Sodium Chloride (Sodium Chloride 0.9%) 1,000 mls @ 100 mls/hr IV .Q10H [facility] Last Admin: 05/30/17 19:23 Dose: 100 mls/hr Insulin Human Regular (Humulin R Low) 0 units SC ACHS [facility] PRN Reason: Protocol Last Admin: 05/31/17 17:01 Dose: 2 units Oxychlorosene Sodium (Clorpactin Wcs-90) 2 gm TOP DAILY [facility] Last Admin: 05/31/17 13:06 Dose: Not Given Potassium Chloride (K-Dur 20 Meq Er Tab) 20 meq PO BRK [facility] Last Admin: 05/31/17 08:23 Dose: 20 meq Physical Exam - Constitutional Appears: Non-toxic, No Acute Distress, Chronically Ill - Head Exam Head Exam: ATRAUMATIC, NORMOCEPHALIC - Eye Exam Eye Exam: EOMI, PERRL Pupil Exam: NORMAL ACCOMODATION, PERRL - ENT Exam ENT Exam: Mucous Membranes Moist, Normal External Ear Exam, TM's Normal Bilaterally - Neck Exam Neck exam: Positive for: Full Rom, Normal Inspection - Respiratory Exam Respiratory Exam: Clear to Auscultation Bilateral, NORMAL BREATHING PATTERN. absent: Rales, Rhonchi, Wheezes - Cardiovascular Exam Cardiovascular Exam: REGULAR RHYTHM, RRR, +S1, +S2 - GI/Abdominal Exam GI & Abdominal Exam: Normal Bowel Sounds, Soft. absent: Distended, Tenderness - Extremities Exam Extremities exam: Positive for: full ROM Additional comments: Peripheral neuropathy of bilateral lower extremities. Edema of the right foot, ankle, lower leg. right foot ulceration near base of 5th toe lateral metaphalangeal area stage 2-3 with possible tract - Neurological Exam Neurological exam: Alert, CN II-XII Intact, Oriented x3 - Psychiatric Exam Psychiatric exam: Normal Affect, Normal Mood - Skin Skin Exam: Intact, Normal Color Additional comments: except for the right foot as listed above. Results - Vital Signs Recent Vital Signs: Last Vital Signs Temp 98.6 F 05/31/17 14:00 Pulse 69 05/31/17 14:00 Resp 20 05/31/17 14:00 BP 134/58 L 05/31/17 17:01 Pulse Ox 97 05/31/17 14:00 - Labs Result Diagrams: 05/30/17 16:32 05/30/17 16:32 Labs: Laboratory Results - last 24 hr 05/30/17 05/31/17 05/31/17 21:13 08:03 12:06 POC Glucose (mg/dL) 83 129 H 195 H 05/31/17 16:26 POC Glucose (mg/dL) 232 H Assessment & Plan - Assessment and Plan (Free Text) Assessment: 77 yo male with history of DM, HTN, CAD, and Chronic CHF and possible PVD with non healing right lateral foot ulceration that is Stage III with potential sinus tract with tracking to bone. Cannot rule out osteomyeltis. Cultures of the foot in the last 2 months had shown MSSA. Was on Augmentin for 28 day course doses at 875mg q6hrs. At this time, Start Cefepime and Vancomycin to cover for gram negative including Pseudomonas and potential MRSA. The patient should be worked up for osteomyelitis. Patient cannot get MRI due to pacemaker. Bone scan to be done. Supportive care. Thank you for allowing me to participate in the care of the patient, we will follow with you.
[2017-05-31] MEDS: Cefepime 1gm in NS 100ml 1 GM/100 ML BAG IVPB SCH (23:14)
--- NOTE | 2017-06-01 02:08 | CON ---
DATE: HISTORY OF PRESENT ILLNESS: A 77-year-old diabetic male well known to the [facility] wound care team, seen at bedside for continued evaluation and management of a chronic nonhealing diabetic right foot ulcer. The patient denies any nausea, fever, diarrhea, and denies any chills or shortness of breath. The patient has had diabetic right foot ulceration over the course of the last year, which has periodically closed only to reopen, despite aggressive offloading measures and periodic followup at the wound center. PAST MEDICAL HISTORY: Significant for longstanding uncontrolled insulin-dependent diabetes with peripheral arterial disease, congestive heart failure, CAD, hypertension, peripheral edema, glaucoma, macular degeneration. PAST SURGICAL HISTORY: Includes cardiac catheterization, open-heart surgery, coronary stenting, valve replacement and foot surgeries. ALLERGIES: THE PATIENT HAS NO KNOWN DRUG ALLERGIES. SOCIAL HISTORY: The patient is never , lives with family. Never smoked cigarettes, and denies illicit drug use or alcohol use. HOME MEDICATIONS: Include Lasix, Coreg, Norvasc, Digitek, Alphagan, Levemir, Humalog 75/25, Feosol and potassium chloride. PHYSICAL EXAMINATION: VITAL SIGNS: Temperature of 98.6, pulse rate of 69, blood pressure of 134/58, respiratory rate of 20. EXTREMITIES: Nonpalpable pedal pulses noted bilaterally. Absent pedal hair growth noted bilaterally. Lower extremity skin presents thin, shiny and discolored bilaterally. Capillary filling time is delayed on all digits. There is noted to be bilateral edema with the right leg greater than the left leg. There is a full-thickness ulceration on the plantar aspect of the right fifth metatarsal phalangeal joint; ulcer measures approximately 2 cm x 1.8 cm x 0.3 cm. The base of the ulcer is a mixture of fibrotic and gangrenous tissue. There is no malodor. There is no purulence to suggest underlying abscess formation. The area is void of edema and erythema. There is no signs of ascending cellulitis. LABORATORY DATA: Reveal a white count of 7.7, hemoglobin of 10.9, hematocrit of 32.6, platelet count of 207, and his ESR is elevated at 56. Microbiology report, culture taken yesterday of the right foot diabetic ulceration reveals no polymorphonuclear white blood cells and no organisms seen preliminarily. X-rays taken reveal no radiographic evidence of osteomyelitis. However, there is noted to be cortical destruction at the fifth metatarsal when viewed by myself. CT scan has been ordered for further verification. The last arterial Dopplers were done on 09/13/2016, which revealed mild tibial occlusion on the right lower extremity. Three-phase bone scan performed on 04/19/2017 reveals acute osseous process for the first cuneiform on the right foot which appears to be an incidental finding. ASSESSMENT: Diabetic foot ulceration on the right plantar foot. PLAN: The patient's wound was examined. Culture was taken and submitted for sensitivities. The wound was cleansed with normal sterile saline, and hydrogel and Xeroform, and a dry sterile dressing was applied. Previous arterial Dopplers were reviewed. We will order new arterial Dopplers to ascertain lower extremity perfusion. Bone scan was ordered and is pending. Recommend consult with Dr. Zana Cook to evaluate arterial Dopplers. Recommend Infectious Disease consult. The patient is currently on vancomycin and Zosyn empirically. We will wait bone scan results and Vascular input. The patient will be seen and followed daily. Marlon Bahena DPM
[2017-06-01 07:13] LABS: HEMOGLOBIN 9.3 g/dL (14.0-18.0); MEAN CELL VOLUME 85.1 fl (80.0-105.0); MEAN CORPUSCULAR HEMOGLOBIN 27.8 pg (25.0-35.0); MEAN CORPUSCULAR HGB CONC 32.6 g/dl (31.0-37.0); MEAN PLATELET VOLUME 9.1 fl (7.0-11.0); RBC 3.35 10^6/uL (3.5-6.1); WHITE BLOOD COUNT 5.1 10^3/ul (4.5-11.0)
[2017-06-01 07:34] LABS: ALB/GLOB RATIO 0.9 (1.1-1.8); ALBUMIN 3.4 g/dL (3.0-4.8); CALCIUM 8.7 mg/dL (8.4-10.5)
[2017-06-01] MEDS: Insulin Reg-LOW-Coverage SC SCH ×3 (08:16→20:07)
[2017-06-01] MEDS: Potassium Chloride 20 mEq ER Tab PO SCH (08:17)
[2017-06-01] MEDS: Vancomycin 1gm in NS 250ml 1 GM/250 ML BAG IVPB SCH (09:38)
[2017-06-01] MEDS: Oxychlorosene Topical 2 gm Packet TOP SCH (09:53)
--- NOTE | 2017-06-01 11:58 | CP.PCM.PN ---
Subjective - Date & Time of Evaluation Date of Evaluation: 06/01/17 Time of Evaluation: 11:40 - Subjective Subjective: Podiatry Progress Note- Dr. Marie 77 y.o old seen and evaluated at bedside for right lateral ulceration. Patient is seen resting comfortably in bed, in NAD, and AA0x3. Patient denies acute overnight events. Patient denies n/v/sob/cp/chills of f. Patient has no new pedal complaints at this time. Objective - Vital Signs/Intake and Output Vital Signs (last 24 hours): Temp Pulse Resp BP Pulse Ox 97.8 F 68 18 145/61 96 06/01/17 08:04 06/01/17 09:41 06/01/17 08:04 06/01/17 09:41 06/01/17 08:04 Intake and Output: 06/01/17 06/01/17 06:59 18:59 Intake Total 820 Output Total 1400 Balance -580 - Medications Medications: Current Medications Amlodipine Besylate (Norvasc) 10 mg PO DAILY [facility] Last Admin: 06/01/17 09:41 Dose: 10 mg Aspirin (Ecotrin) 81 mg PO DAILY [facility] Last Admin: 06/01/17 09:40 Dose: 81 mg Atorvastatin Calcium (Lipitor) 10 mg PO DIN [facility] Last Admin: 05/31/17 17:01 Dose: 10 mg Carvedilol (Coreg) 3.125 mg PO BID [facility] Last Admin: 06/01/17 09:41 Dose: 3.125 mg Digoxin (Digoxin) 0.125 mg PO 1400 [facility] Last Admin: 05/31/17 13:11 Dose: 0.125 mg Ferrous Sulfate (Feosol) 324 mg PO DAILY [facility] Last Admin: 06/01/17 09:41 Dose: 324 mg Furosemide (Lasix) 40 mg PO BID [facility] Last Admin: 06/01/17 09:41 Dose: 40 mg Sodium Chloride (Sodium Chloride 0.9%) 1,000 mls @ 100 mls/hr IV .Q10H [facility] Last Admin: 05/30/17 19:23 Dose: 100 mls/hr Cefepime HCl (Maxipime 1gm) 1 gm in 100 mls @ 100 mls/hr IVPB Q24H [facility] PRN Reason: Protocol Last Admin: 05/31/17 23:14 Dose: 100 mls/hr Vancomycin HCl (Vancomycin 1gm) 1 gm in 250 mls @ 167 mls/hr IVPB DAILY [facility] PRN Reason: Protocol Last Admin: 06/01/17 09:38 Dose: 167 mls/hr Insulin Human Regular (Humulin R Low) 0 units SC ACHS [facility] PRN Reason: Protocol Last Admin: 06/01/17 08:16 Dose: 1 units Oxychlorosene Sodium (Clorpactin Wcs-90) 2 gm TOP DAILY [facility] Last Admin: 06/01/17 09:53 Dose: 2 gm Potassium Chloride (K-Dur 20 Meq Er Tab) 20 meq PO BRK [facility] Last Admin: 06/01/17 08:17 Dose: 20 meq - Labs Labs: 06/01/17 06:20 06/01/17 06:20 - Constitutional Appears: Well, Non-toxic, No Acute Distress - Extremities Exam Extremities Exam: absent: Calf Tenderness Additional comments: Vasc: Pedal pulses nonpalpable, absent pedal hair growth noted bilaterally, CFT delayed to all digits, edema noted to LE R>L Ortho: Pain with palpation to the right foot Derm: ulceration full thickness noted to the plantar aspect of 5th right MPJ, measuring approximately 2 cm x 1.8 cm x .3 cm. Wound base is mainly fibrotic wotj gangrenous tissue. No malodor. No purulence. No abscess or fluctanance noted. No edema, erythema, no ascending cellulitis noted. Skin is thin, shiny, and discolored bilaterally Neuro: gross and protective sensation diminished - Psychiatric Exam Psychiatric exam: Normal Affect, Normal Mood Assessment and Plan - Assessment and Plan (Free Text) Assessment: 77 y.o male with right plantar full thickness ulceration secondary to DM, neuropathy, and pressure Plan: Patient examined and evaluated Discussed plan in detail with attending Labs, chart, vitals reviewed- afebrile, absent leukocytosis Cleansed ulceration with saline solution and dressed with xeroform and dsd Wound culture taken- pending results Bone scan taken to r/o OM- pending result Patient has pacemaker, no MRI F/U vascular consult and recommendations c/w abx per ID Cefepime and Vanco Patient may PWB in surgical shoe
[2017-06-01] MEDS: Digoxin 125 mcg (0.125 mg) Tab PO SCH (15:02)
--- NOTE | 2017-06-01 16:18 | CP.PCM.PN ---
Subjective - Date & Time of Evaluation Date of Evaluation: 06/01/17 Time of Evaluation: 09:45 - Subjective Subjective: Infectious Disease Follow Up: June 01, 2017 77 yo male with history of left foot osteomyelitis treated with IV antibiotics. The right foot has ulceration that was noted in wound care in March 2017. Multiple cultures from wound care center of the right foot ulcer showing growth of MSSA, Enterobacter, and Klebsiella over the past year. Last cultuers taken showed MSSA. The patient denies fevers or chills. No other complaints. He was placed in a cast while receiving PO antibiotics of Augmentin for 28 days. When cast was removed, the patient still had purulent drainage from ulceration in the base of the 5th toe lateral metaphalangeal area. Bone Scan done. Official reading is pending although there does appear to be increased uptake in the foot. Objective - Vital Signs/Intake and Output Vital Signs (last 24 hours): Temp Pulse Resp BP Pulse Ox 98.9 F 70 20 146/65 96 06/01/17 14:00 06/01/17 14:00 06/01/17 14:00 06/01/17 14:00 06/01/17 14:00 Intake and Output: 06/01/17 06/01/17 06:59 18:59 Intake Total 820 800 Output Total 1400 500 Balance -580 300 - Medications Medications: Current Medications Amlodipine Besylate (Norvasc) 10 mg PO DAILY [facility] Last Admin: 06/01/17 09:41 Dose: 10 mg Aspirin (Ecotrin) 81 mg PO DAILY [facility] Last Admin: 06/01/17 09:40 Dose: 81 mg Atorvastatin Calcium (Lipitor) 10 mg PO DIN [facility] Last Admin: 05/31/17 17:01 Dose: 10 mg Carvedilol (Coreg) 3.125 mg PO BID [facility] Last Admin: 06/01/17 09:41 Dose: 3.125 mg Digoxin (Digoxin) 0.125 mg PO 1400 [facility] Last Admin: 06/01/17 15:02 Dose: 0.125 mg Ferrous Sulfate (Feosol) 324 mg PO DAILY [facility] Last Admin: 06/01/17 09:41 Dose: 324 mg Furosemide (Lasix) 40 mg PO BID [facility] Last Admin: 06/01/17 09:41 Dose: 40 mg Sodium Chloride (Sodium Chloride 0.9%) 1,000 mls @ 100 mls/hr IV .Q10H [facility] Last Admin: 05/30/17 19:23 Dose: 100 mls/hr Cefepime HCl (Maxipime 1gm) 1 gm in 100 mls @ 100 mls/hr IVPB Q24H [facility] PRN Reason: Protocol Last Admin: 05/31/17 23:14 Dose: 100 mls/hr Vancomycin HCl (Vancomycin 1gm) 1 gm in 250 mls @ 167 mls/hr IVPB DAILY [facility] PRN Reason: Protocol Last Admin: 06/01/17 09:38 Dose: 167 mls/hr Insulin Human Regular (Humulin R Low) 0 units SC ACHS [facility] PRN Reason: Protocol Last Admin: 06/01/17 12:27 Dose: 3 units Oxychlorosene Sodium (Clorpactin Wcs-90) 2 gm TOP DAILY [facility] Last Admin: 06/01/17 09:53 Dose: 2 gm Potassium Chloride (K-Dur 20 Meq Er Tab) 20 meq PO BRK [facility] Last Admin: 06/01/17 08:17 Dose: 20 meq - Labs Labs: 06/01/17 06:20 06/01/17 06:20 - Constitutional Appears: Non-toxic, No Acute Distress, Chronically Ill - Head Exam Head Exam: ATRAUMATIC, NORMOCEPHALIC - Eye Exam Eye Exam: EOMI, PERRL Pupil Exam: NORMAL ACCOMODATION, PERRL - ENT Exam ENT Exam: Mucous Membranes Moist, Normal External Ear Exam, TM's Normal Bilaterally - Neck Exam Neck Exam: Full ROM, Normal Inspection - Respiratory Exam Respiratory Exam: Clear to Ausculation Bilateral, NORMAL BREATHING PATTERN. absent: Rales, Rhonchi, Wheezes - Cardiovascular Exam Cardiovascular Exam: REGULAR RHYTHM, RRR, +S1, +S2 - GI/Abdominal Exam GI & Abdominal Exam: Soft, Normal Bowel Sounds. absent: Distended, Tenderness - Extremities Exam Extremities Exam: Full ROM Additional comments: Peripheral neuropathy of bilateral lower extremities. Edema of the right foot, ankle, lower leg. right foot ulceration near base of 5th toe lateral metaphalangeal area stage 2-3 with possible tract - Neurological Exam Neurological Exam: Alert, Awake, CN II-XII Intact, Oriented x3 - Psychiatric Exam Psychiatric exam: Normal Affect, Normal Mood - Skin Skin Exam: Intact, Normal Color Additional comments: except for the right foot as listed above. Assessment and Plan - Assessment and Plan (Free Text) Assessment: 77 yo male with history of DM, HTN, CAD, and Chronic CHF and possible PVD with non healing right lateral foot ulceration that is Stage III with potential sinus tract with tracking to bone. Cannot rule out osteomyeltis. Cultures of the foot in the last 2 months had shown MSSA. Was on Augmentin for 28 day course doses at 875mg q6hrs. At this time, Start Cefepime and Vancomycin to cover for gram negative including Pseudomonas and potential MRSA. The patient should be worked up for osteomyelitis. Patient cannot get MRI due to pacemaker. Bone scan to be done. Official read is pending. Supportive care. Thank you for allowing me to participate in the care of the patient, we will follow with you.
--- NOTE | 2017-06-01 16:40 | NM ---
PROCEDURE: Three-phase bone scan HISTORY: Nonhealing right foot ulcer COMPARISON: 05/30/2017 plain film radiographs right foot. 04/19/2017 three-phase bone scan TECHNIQUE: Following administration of 21.3 miCu of Tc MDP multiplanar whole body images were obtained. FINDINGS: Flow component: Increased flow to the lateral aspect of the right foot at the level of the distal 5th metatarsal, 5th digit. Blood pool component: Accumulation of radionuclide distal aspect right 5th metatarsal Delayed images at 3:00: Retention of radionuclide 5th metatarsal distally right foot Other findings: Additional foci of increased uptake tarsal bones compatible with degenerative/posttraumatic change. IMPRESSION: Positive 3 phase bone scan for acute osseous process involving distal aspect of the 5th metatarsal/proximal phalanx right 5th digit
[2017-06-01] MEDS: Cefepime 1gm in NS 100ml 1 GM/100 ML BAG IVPB SCH (18:22)
[2017-06-01] MEDS: Insulin Reg-MEDIUM-Coverage SC SCH (21:27)
--- NOTE | 2017-06-02 02:20 | CON ---
DATE: 06/01/2017 TIME: 6:00 p.m. CHIEF COMPLAINT/HISTORY OF PRESENT ILLNESS: This is a 77-year-old diabetic who has had a chronic nonhealing diabetic foot ulcer for quite some time and has been followed by Dr. Marie and Shruti. The ulcer is on the plantar surface over the right fifth MTP joint. There appears to be associated osteomyelitis with positive bone scan and x-ray abnormalities. He has been receiving antibiotics along with wound care. His situation is complicated by stasis changes. I have reviewed an RADHA study from August 2016. The right RADHA is mildly abnormal. The PVR waveforms are normal to the calf. The right ankle and metatarsal waveforms are pulsatile and mildly diminished. Findings are suggestive of right popliteal, trifurcation, and/or tibial disease. RECOMMENDATIONS: I spoke briefly with Dr. Marie and Dr. Bahena about his wound. Unfortunately, his baseline creatinine is elevated at 1.8. We will repeat the RADHA/PVR exam and see if there has been any loom changeover operator the past 9 months. The presence of osteomyelitis complicates the issue. After reviewing the RADHA/PVR exam, I will talk with podiatrists about the need for arteriography. He will need to be hydrated and the contrast limited as much as possible. Zana Cook MD MTDRenée
[2017-06-02] MEDS: Sodium Chloride 0.9% 1,000 ML IV SCH ×2 (04:43→11:14)
[2017-06-02] MEDS: Potassium Chloride 20 mEq ER Tab PO SCH (08:17)
[2017-06-02] MEDS: Insulin Reg-MEDIUM-Coverage SC SCH ×4 (08:17→21:28)
[2017-06-02 09:28] VITALS: RESP 18
[2017-06-02] MEDS: Vancomycin 1gm in NS 250ml 1 GM/250 ML BAG IVPB SCH (11:13)
--- NOTE | 2017-06-02 13:06 | CP.PCM.PN ---
Subjective - Date & Time of Evaluation Date of Evaluation: 06/02/17 Time of Evaluation: 13:03 - Subjective Subjective: Podiatry Progress Note- Dr. Marie 77 y.o old seen and evaluated at bedside for right foot lateral ulceration. Patient is seen resting comfortably in bed, in NAD, and AA0x3. Patient denies acute overnight events. Patient denies n/v/sob/cp/chills of f. Patient has no new pedal complaints at this time. Objective - Vital Signs/Intake and Output Vital Signs (last 24 hours): Temp Pulse Resp BP Pulse Ox 98.2 F 72 18 152/72 H 95 06/02/17 07:30 06/02/17 07:30 06/02/17 07:30 06/02/17 11:12 06/02/17 07:30 Intake and Output: 06/02/17 06/02/17 06:59 18:59 Intake Total 180 Output Total 700 Balance -520 - Medications Medications: Current Medications Amlodipine Besylate (Norvasc) 10 mg PO DAILY [facility] Last Admin: 06/02/17 12:28 Dose: 10 mg Aspirin (Ecotrin) 81 mg PO DAILY [facility] Last Admin: 06/02/17 11:12 Dose: 81 mg Atorvastatin Calcium (Lipitor) 10 mg PO DIN [facility] Last Admin: 06/01/17 18:13 Dose: 10 mg Carvedilol (Coreg) 3.125 mg PO BID [facility] Last Admin: 06/02/17 11:13 Dose: 3.125 mg Digoxin (Digoxin) 0.125 mg PO 1400 [facility] Last Admin: 06/01/17 15:02 Dose: 0.125 mg Ferrous Sulfate (Feosol) 324 mg PO DAILY [facility] Last Admin: 06/02/17 11:12 Dose: 324 mg Furosemide (Lasix) 40 mg PO BID [facility] Last Admin: 06/02/17 11:12 Dose: 40 mg Sodium Chloride (Sodium Chloride 0.9%) 1,000 mls @ 100 mls/hr IV .Q10H [facility] Last Admin: 06/02/17 11:14 Dose: 100 mls/hr Cefepime HCl (Maxipime 1gm) 1 gm in 100 mls @ 100 mls/hr IVPB Q24H [facility] PRN Reason: Protocol Last Admin: 06/01/17 18:22 Dose: 100 mls/hr Vancomycin HCl (Vancomycin 1gm) 1 gm in 250 mls @ 167 mls/hr IVPB DAILY [facility] PRN Reason: Protocol Last Admin: 06/02/17 11:13 Dose: 167 mls/hr Insulin Human Regular (Humulin R Med) 0 units SC ACHS [facility] PRN Reason: Protocol Last Admin: 06/02/17 12:29 Dose: 3 units Oxychlorosene Sodium (Clorpactin Wcs-90) 2 gm TOP DAILY [facility] Last Admin: 06/01/17 09:53 Dose: 2 gm Potassium Chloride (K-Dur 20 Meq Er Tab) 20 meq PO BRK [facility] Last Admin: 06/02/17 08:17 Dose: 20 meq - Labs Labs: 06/01/17 06:20 06/01/17 06:20 - Constitutional Appears: Well, Non-toxic, No Acute Distress - Extremities Exam Extremities Exam: absent: Calf Tenderness Additional comments: Vasc: Pedal pulses nonpalpable, absent pedal hair growth noted bilaterally, CFT delayed to all digits, edema noted to LE R>L Ortho: Pain with palpation to the right foot Derm: ulceration full thickness noted to the plantar aspect of 5th right MPJ, measuring approximately 2 cm x 1.8 cm x .3 cm. Wound base is mainly fibrotic with gangrenous tissue. No malodor. No purulence. No abscess or fluctanance noted. No edema, erythema, no ascending cellulitis noted. Skin is thin, shiny, and discolored bilaterally Neuro: gross and protective sensation diminished - Psychiatric Exam Psychiatric exam: Normal Affect, Normal Mood Assessment and Plan - Assessment and Plan (Free Text) Assessment: 77 y.o male with right foot lateral plantar full thickness ulceration secondary to DM, neuropathy, and pressure Plan: Patient examined and evaluated Discussed plan in detail with attending Labs, chart, vitals reviewed- afebrile, absent leukocytosis Cleansed ulceration with saline solution Will order santyl, to be used on ulceration with wound care Wound culture results-coagulase negative staphylococcus Patient has a pacemaker, could not take MRI to r/o OM Bone scan taken and shows acute osseous process involving distal aspect of the 5th metatarsal/proximal phalanx right 5th digit Abx per ID F/U vascular consult and recommendations Patient may PWB in surgical shoe
[2017-06-02] MEDS ORDERED: Oxychlorosene Topical 2 gm Packet TOP SCH (14:45)
[2017-06-02] MEDS: Digoxin 125 mcg (0.125 mg) Tab PO SCH (14:49)
[2017-06-02] MEDS: Cefepime 1gm in NS 100ml 1 GM/100 ML BAG IVPB SCH ×2 (17:08→20:39)
--- NOTE | 2017-06-02 17:54 | CP.PCM.PN ---
Subjective - Date & Time of Evaluation Date of Evaluation: 06/02/17 Time of Evaluation: 15:30 - Subjective Subjective: Infectious Disease Follow Up: June 02, 2017 77 yo male with history of left foot osteomyelitis treated with IV antibiotics. The right foot has ulceration that was noted in wound care in March 2017. Multiple cultures from wound care center of the right foot ulcer showing growth of MSSA, Enterobacter, and Klebsiella over the past year. Last cultuers taken showed MSSA. The patient denies fevers or chills. No other complaints. He was placed in a cast while receiving PO antibiotics of Augmentin for 28 days. When cast was removed, the patient still had purulent drainage from ulceration in the base of the 5th toe lateral metaphalangeal area. Bone Scan done. Official reading positive for osteomyelitis of the 5th metatarsal on the right foot. Objective - Vital Signs/Intake and Output Vital Signs (last 24 hours): Temp Pulse Resp BP Pulse Ox 98.2 F 72 18 136/56 L 95 06/02/17 07:30 06/02/17 07:30 06/02/17 07:30 06/02/17 17:01 06/02/17 07:30 Intake and Output: 06/02/17 06/02/17 06:59 18:59 Intake Total 180 540 Output Total 700 600 Balance -520 -60 - Medications Medications: Current Medications Amlodipine Besylate (Norvasc) 10 mg PO DAILY [facility] Last Admin: 06/02/17 12:28 Dose: 10 mg Aspirin (Ecotrin) 81 mg PO DAILY [facility] Last Admin: 06/02/17 11:12 Dose: 81 mg Atorvastatin Calcium (Lipitor) 10 mg PO DIN [facility] Last Admin: 06/02/17 16:57 Dose: 10 mg Carvedilol (Coreg) 3.125 mg PO BID [facility] Last Admin: 06/02/17 17:01 Dose: 3.125 mg Digoxin (Digoxin) 0.125 mg PO 1400 [facility] Last Admin: 06/02/17 14:49 Dose: 0.125 mg Ferrous Sulfate (Feosol) 324 mg PO DAILY [facility] Last Admin: 06/02/17 11:12 Dose: 324 mg Furosemide (Lasix) 40 mg PO BID [facility] Last Admin: 06/02/17 17:01 Dose: 40 mg Sodium Chloride (Sodium Chloride 0.9%) 1,000 mls @ 100 mls/hr IV .Q10H [facility] Last Admin: 06/02/17 11:14 Dose: 100 mls/hr Cefepime HCl (Maxipime 1gm) 1 gm in 100 mls @ 100 mls/hr IVPB Q24H [facility] PRN Reason: Protocol Last Admin: 06/02/17 17:08 Dose: 100 mls/hr Vancomycin HCl (Vancomycin 1gm) 1 gm in 250 mls @ 167 mls/hr IVPB DAILY [facility] PRN Reason: Protocol Last Admin: 06/02/17 11:13 Dose: 167 mls/hr Insulin Human Regular (Humulin R Med) 0 units SC ACHS [facility] PRN Reason: Protocol Last Admin: 06/02/17 16:56 Dose: 1 units Oxychlorosene Sodium (Clorpactin Wcs-90) 2 gm TOP Q12H [facility] Last Admin: 06/02/17 16:56 Dose: 2 gm Potassium Chloride (K-Dur 20 Meq Er Tab) 20 meq PO BRK [facility] Last Admin: 06/02/17 08:17 Dose: 20 meq - Labs Labs: 06/01/17 06:20 06/01/17 06:20 - Constitutional Appears: Non-toxic, No Acute Distress, Chronically Ill - Head Exam Head Exam: ATRAUMATIC, NORMOCEPHALIC - Eye Exam Eye Exam: EOMI, PERRL Pupil Exam: NORMAL ACCOMODATION, PERRL - ENT Exam ENT Exam: Mucous Membranes Moist, Normal External Ear Exam, TM's Normal Bilaterally - Neck Exam Neck Exam: Full ROM, Normal Inspection - Respiratory Exam Respiratory Exam: Clear to Ausculation Bilateral, NORMAL BREATHING PATTERN. absent: Rales, Rhonchi, Wheezes - Cardiovascular Exam Cardiovascular Exam: REGULAR RHYTHM, RRR, +S1, +S2 - GI/Abdominal Exam GI & Abdominal Exam: Soft, Normal Bowel Sounds. absent: Distended, Tenderness - Extremities Exam Extremities Exam: Full ROM Additional comments: Peripheral neuropathy of bilateral lower extremities. Edema of the right foot, ankle, lower leg. right foot ulceration near base of 5th toe lateral metaphalangeal area stage 2-3 with possible tract - Neurological Exam Neurological Exam: Alert, Awake, CN II-XII Intact, Oriented x3 - Psychiatric Exam Psychiatric exam: Normal Affect, Normal Mood - Skin Skin Exam: Normal Color Additional comments: except for the right foot as listed above. Assessment and Plan - Assessment and Plan (Free Text) Assessment: 77 yo male with history of DM, HTN, CAD, and Chronic CHF and possible PVD with non healing right lateral foot ulceration that is Stage III with potential sinus tract with tracking to bone. Cannot rule out osteomyeltis. Cultures of the foot in the last 2 months had shown MSSA. Was on Augmentin for 28 day course doses at 875mg q6hrs. At this time, Start Cefepime and Vancomycin to cover for gram negative including Pseudomonas and potential MRSA. The patient should be worked up for osteomyelitis. Patient cannot get MRI due to pacemaker. Bone scan showing increased uptake consistent with osteomyelitis in the right foot 5th metatarsal. Blood cultures negative to date. Wound culture with coagulase negative staph. Continue broad spectrum coverage. Supportive care. Thank you for allowing me to participate in the care of the patient, we will follow with you.
[2017-06-03] MEDS: Sodium Chloride 0.9% 1,000 ML IV SCH ×2 (00:47→15:27)
[2017-06-03] MEDS: Oxychlorosene Topical 2 gm Packet TOP SCH ×2 (06:00→08:18)
[2017-06-03] MEDS: Potassium Chloride 20 mEq ER Tab PO SCH (08:00)
[2017-06-03] MEDS: Insulin Reg-MEDIUM-Coverage SC SCH ×2 (08:00→12:44)
[2017-06-03 08:07] VITALS: O2SAT 96
[2017-06-03] MEDS: Collagenase 250 Units/gm Ointment(30 gm) TOP SCH ×2 (08:55→12:53)
[2017-06-03] MEDS: Vancomycin 1gm in NS 250ml 1 GM/250 ML BAG IVPB SCH (09:09)
[2017-06-03] MEDS ORDERED: Enoxaparin 40 mg Syringe SC SCH (10:00)
[2017-06-03] MEDS ORDERED: Pantoprazole 40 mg EC Tab PO SCH (12:00)
--- NOTE | 2017-06-03 13:08 | RAD ---
HISTORY: chf COMPARISON: 10/18/2016 TECHNIQUE: Chest PA and lateral FINDINGS: LUNGS: No evidence of infiltrate PLEURA: No significant pleural effusion identified. No pneumothorax apparent. CARDIOVASCULAR: Normal. OSSEOUS STRUCTURES: No significant abnormalities. VISUALIZED UPPER ABDOMEN: Normal. OTHER FINDINGS: Dual lead pacemaker. IMPRESSION: No active disease.
--- NOTE | 2017-06-03 14:18 | CP.PCM.PN ---
Subjective - Date & Time of Evaluation Date of Evaluation: 06/03/17 Time of Evaluation: 11:30 - Subjective Subjective: Infectious Disease Follow Up: June 03, 2017 77 yo male with history of left foot osteomyelitis treated with IV antibiotics. The right foot has ulceration that was noted in wound care in March 2017. Multiple cultures from wound care center of the right foot ulcer showing growth of MSSA, Enterobacter, and Klebsiella over the past year. Last cultuers taken showed MSSA. The patient denies fevers or chills. No other complaints. He was placed in a cast while receiving PO antibiotics of Augmentin for 28 days. When cast was removed, the patient still had purulent drainage from ulceration in the base of the 5th toe lateral metaphalangeal area. Bone Scan done. Official reading positive for osteomyelitis of the 5th metatarsal on the right foot. At this time no further surgery by Podiatry. Spoke with Dr. Marie. Objective - Vital Signs/Intake and Output Vital Signs (last 24 hours): Temp Pulse Resp BP Pulse Ox 97.4 F L 67 18 158/68 H 96 06/03/17 07:30 06/03/17 09:08 06/03/17 07:30 06/03/17 09:08 06/03/17 07:30 Intake and Output: 06/03/17 06/03/17 06:59 18:59 Intake Total 240 Output Total 700 Balance -460 - Medications Medications: Current Medications Amlodipine Besylate (Norvasc) 10 mg PO DAILY [facility] Last Admin: 06/03/17 09:08 Dose: 10 mg Aspirin (Ecotrin) 81 mg PO DAILY [facility] Last Admin: 06/03/17 09:08 Dose: 81 mg Atorvastatin Calcium (Lipitor) 10 mg PO DIN [facility] Last Admin: 06/02/17 16:57 Dose: 10 mg Carvedilol (Coreg) 3.125 mg PO BID [facility] Last Admin: 06/03/17 09:08 Dose: 3.125 mg Collagenase (Santyl) 0 gm TOP DAILY [facility] Last Admin: 06/03/17 12:53 Dose: 1 applic Digoxin (Digoxin) 0.125 mg PO 1400 [facility] Last Admin: 06/02/17 14:49 Dose: 0.125 mg Enoxaparin Sodium (Lovenox) 40 mg SC DAILY [facility] PRN Reason: Protocol Last Admin: 03/09/18 12:52 Dose: 40 mg Ferrous Sulfate (Feosol) 324 mg PO DAILY [facility] Last Admin: 06/03/17 09:08 Dose: 324 mg Furosemide (Lasix) 40 mg PO BID [facility] Last Admin: 06/03/17 09:07 Dose: 40 mg Sodium Chloride (Sodium Chloride 0.9%) 1,000 mls @ 100 mls/hr IV .Q10H [facility] Last Admin: 06/03/17 00:47 Dose: 100 mls/hr Cefepime HCl (Maxipime 1gm) 1 gm in 100 mls @ 100 mls/hr IVPB Q24H [facility] PRN Reason: Protocol Last Admin: 06/02/17 20:39 Dose: Not Given Vancomycin HCl (Vancomycin 1gm) 1 gm in 250 mls @ 167 mls/hr IVPB DAILY [facility] PRN Reason: Protocol Last Admin: 06/03/17 09:09 Dose: 167 mls/hr Insulin Human Regular (Humulin R Med) 0 units SC ACHS [facility] PRN Reason: Protocol Last Admin: 06/03/17 12:44 Dose: 3 units Oxychlorosene Sodium (Clorpactin Wcs-90) 2 gm TOP Q12H [facility] Last Admin: 06/03/17 08:18 Dose: 2 gm Pantoprazole Sodium (Protonix Ec Tab) 40 mg PO DAILY [facility] Last Admin: 06/03/17 12:52 Dose: 40 mg Potassium Chloride (K-Dur 20 Meq Er Tab) 20 meq PO BRK [facility] Last Admin: 06/03/17 08:00 Dose: 20 meq - Labs Labs: 06/01/17 06:20 06/01/17 06:20
[2017-06-03] MEDS: Digoxin 125 mcg (0.125 mg) Tab PO SCH (15:24)
[2017-06-03 15:28] VITALS: PULSE 75
[2017-06-03 15:36] VITALS: BP 145/65; PULSE 75; TEMP 97.8
--- NOTE | 2017-06-03 17:26 | CARD ---
APPROVED REPORT EKG Measurement Heart [id number] [id number] <Conclusion> Electronic ventricular pacemaker
--- NOTE | 2017-06-03 19:37 | US ---
PROCEDURE: Lower extremity RAHDA exam HISTORY: Peripheral vascular disease with recurrent ischemic ulcer right foot. Diabetes. PHYSICIAN(S): Zana Cook MD. FINDINGS: The resting RADHA's are inaccurate due to calcification: Right, 0.93 and left, 0.81 The brachial systolic pressures are symmetric. The high thigh pressures are noncompressible. The high thigh PVR waveforms are normal and symmetric The left calf PVR waveform is normal and augments normally. The right calf PVR waveform is decreased in amplitude and mildly blunted compared with the left. This is consistent with right SFA occlusive disease. The ankle and metatarsal waveforms are moderately blunted, greater on the right than the left. This is consistent with bilateral tibial occlusive disease. IMPRESSION: 1. Right SFA occlusive disease. 2. Bilateral tibial occlusive disease. 3. Inaccurate ABIs due to calcification
--- NOTE | 2017-06-03 21:31 | PN ---
DATE: SUBJECTIVE: A 77-year-old male seen at bedside for continued evaluation and management of osteomyelitis of the right fifth metatarsal head, fifth digit. The patient is resting comfortably and has no complaints at this time. The patient's vital signs revealed a temperature 97.8, pulse rate of 75, blood pressure of 145/65, respiratory rate of 18. LABORATORY FINDINGS: Reveal a white count of 5.1, hemoglobin of 9.3, hematocrit of 28.5, platelet count of 136. His ESR is elevated at 73. Microbiology report reveals coagulase-negative Staphylococcus aureus growth. Bone scan done on the right foot reveals acute osseous process involving distal aspect of the fifth metatarsal proximal phalangeal of the right fifth toe. OBJECTIVE: Nonpalpable pedal pulses noted bilaterally. Absent pedal hair growth noted bilaterally. Lower extremity skin presents thin, shiny, and discolored bilaterally. Capillary filling time is delayed to all the digits. There is noted to be bilateral lower extremity edema, right greater than left. There is a full-thickness ulceration located on the plantar aspect of the fifth metatarsophalangeal joint that measures approximately 2 cm x 2 cm x 0.3 cm. Base of the wound is primarily fibrotic with gangrenous tissue. There is no malodor. There is no purulence to suggest underlying abscess formation. There is no peripheral edema or erythema and no signs of ascending cellulitis. The patient is unable to detect 5.07 g monofilament wire testing bilaterally. ASSESSMENT: A 77-year-old male with right foot ulceration on the lateral plantar aspect, underlying the fifth metatarsophalangeal joint. PLAN: The patient was examined. His wound was cleansed with normal sterile saline and application of Santyl ointment and a dry sterile dressing was applied. The patient has been undergoing Clorpactin solution soak twice per day as per Dr. Milligan; however, if the area becomes macerated, we will discontinue using the Clorpactin solution soak. Dr. Larkin's note was read and appreciated. Spoke with Dr. Cook regarding the patient's lower extremity perfusion, which suggests right popliteal trifurcation and/or tibial occlusive disease. Dr. Cook feels the need for arteriography, which will be done early next week. In the meantime, we will continue with the IV antibiotics, continue with off weightbearing, and continue with daily dressing changes. The patient will be seen and followed daily. Marlon Bahena DPM
--- NOTE | 2017-06-04 02:28 | CON ---
DATE: 06/03/2017 REASON FOR CONSULTATION: Chronic kidney disease, stage III/IV, diabetic foot ulcer. HISTORY OF PRESENTING ILLNESS: A 77-year-old male with history of NIDDM, hypertension, chronic kidney disease stage III/IV, diabetic foot ulcer on the left foot in the past, now with nonhealing ulcers of the right foot. Patient underwent bone scan, which showed increased flow to the lateral aspect of the right foot, additional foci of increased uptake in the tarsal bones, possible osteomyelitis. Patient is being treated with IV antibiotics. Arteriograph is being considered. Hence consultation is requested. Currently, patient is lying in bed. He is awake, he is alert, he is comfortable. He denies any pain. He denies any shortness of breath. He denies any chest tightness. He denies any abdominal pain. He denies any nausea, vomiting or diarrhea. PAST MEDICAL AND SURGICAL HISTORY: NIDDM; hypertension; chronic kidney disease, stage III/IV; CHF; CAD; peripheral vascular disease; nonhealing ulcer of the left foot, now with nonhealing ulcer of the right foot. FAMILY HISTORY: Hypertension. SOCIAL HISTORY: No smoking, no alcohol use, no IV drug abuse. ALLERGIES: NO KNOWN DRUG ALLERGIES. CURRENT MEDICATIONS: Coreg 3.125 b.i.d., digoxin 0.125, aspirin, Feosol, insulin, potassium 20 mEq, Lasix 40 p.o. b.i.d., Lipitor 10, Lovenox, cefepime 1 g daily, amlodipine 10, Protonix 40, normal saline at 100, vancomycin 250 daily. REVIEW OF SYSTEMS: All systems are reviewed, pertinent positives as mentioned in history of presenting illness, rest unremarkable. PHYSICAL EXAMINATION: GENERAL: Elderly male, lying in bed. VITAL SIGNS: Blood pressure 158/68, heart rate 67, respiratory rate 18, temperature 97.4. HEENT: Normocephalic, atraumatic. NECK: Supple, no JVD. LUNGS: Bilateral equal air entry, no rales, no rhonchi. CARDIAC: S1 and S2. Regular rate and rhythm. No murmur, no rub. ABDOMEN: Soft, nondistended, nontender, bowel sounds present. EXTREMITIES: Dressing of the right foot. INTAKE AND OUTPUT: 900/850. LABORATORY DATA: WBC 5, hemoglobin 9.3, hematocrit 28.5, platelets 136. Sodium 140, potassium 4.3, chloride 106, CO2 24, BUN 30, creatinine 1.8, glucose 195, calcium 8.7, AST 24, ALT 14, albumin 3.4. Wound culture, coagulase-negative Staph, ASSESSMENT: 1. Stable chronic kidney disease, stage III/IV. 2. Non-insulin dependent diabetes mellitus. 3. Hypertension. 4. Anemia of chronic kidney disease and chronic infection. 5. Peripheral arterial disease, suspect. 6. Nonhealing ulcer of the right foot, possible osteomyelitis, angiography being considered. PLAN: 1. Patient is at moderately elevated risk of worsening renal function with dye study, but since benefit outweighs the risk, if study needs to be done, would hold Lasix, would hydrate the patient, limit dose. 2. Would give Mucomyst 600 mg b.i.d. two doses pre and post. 3. Avoid nephrotoxins. 4. Check iron stores. 5. Dose all antibiotics for creatinine clearance 30 to 50 mL/minute. 6. Close monitoring. Thank you for the courtesy of this consultation. We will follow this patient as needed. Britney Balbuena MD
--- NOTE | 2017-06-04 09:54 | PN ---
DATE: SUBJECTIVE: A 77-year-old diabetic male seen at bedside. Continue evaluation and management of osteomyelitis of the right fifth metatarsal head and fifth digit. The patient is seen in TCU and is resting comfortably. He has been afebrile and offers no new complaints. The patient's vital signs revealed temperature of 98.2, pulse rate of 76, blood pressure of 145/64, respiratory rate of 18. His blood glucose was 135 today. OBJECTIVE: Nonpalpable pedal pulses noted bilaterally. Bilateral lower extremity edema, right greater than left. Absent pedal hair growth noted. Both lower extremity present with thin, shiny and discolored skin bilaterally. Capillary filling time is delayed on all the digits. There is a full-thickness ulceration located at the plantar aspect of the fifth metatarsophalangeal joint that measures approximately 2.5 x 2 cm x 0.3 cm. Base of the ulcer remains primarily fibrotic with gangrenous tissues dispersed throughout. There is no purulence emanating from the wound to suggest underlying abscess formation. There is no malodor. No signs of ascending cellulitis. ASSESSMENT: A 77-year-old male with diabetic right foot ulceration on the lateral plantar aspect, underlying the fifth metatarsophalangeal joints with osteomyelitis. PLAN: The patient was examined. His wound was cleansed with normal sterile saline. Application of Santyl ointment and a dry sterile dressing was applied. The patient is still receiving Clorpactin solution soaks twice per day as per Dr. Milligan; however, the area is becoming quite macerated and I would recommend discontinuing the Clorpactin soaks. Bone scan shows positive osseous process involving the distal aspect of the fifth metatarsal and the proximal phalangeal joint of the right fifth digit indicative of osteomyelitis. Dr. Cook's note was read and appreciated. He is going to perform an arteriography early next week on Mr. Hein. We will continue with the IV antibiotics. Continue with the off weightbearing and continue with daily dressing changes. We will await vascular results once arteriography is complete. Marlon Bahena DPM
--- NOTE | 2017-06-06 08:40 | CON ---
DATE: 06/03/2017 LOCATION: Patient in room 571, bed 1. REASON FOR CONSULTATION: History of coronary artery disease, history of CABG, history of pacemaker, history of CHF, diabetes, hypertension, hyperlipidemia, peripheral vascular disease, ulcers on the right foot, with possible osteomyelitis. HISTORY OF PRESENT ILLNESS: Patient is a 77-year-old male, whose past history is positive for coronary artery disease, status post CABG in 2006, 5-vessel CABG was done. Patient also has history of pacemaker insertion, diabetes, hypertension, hyperlipidemia, severe PAD, previously had left foot ulcer. Now patient admitted with ulcer on the right foot with possible osteomyelitis, it is a nonhealing ulcer. Patient was in the cast till few days ago and still also did not heal up. Patient denies chest pain, shortness of breath or palpitation. PREVIOUS CARDIAC WORKUP: Patient had stress test on 06/09/2016, which showed fixed defect with LV ejection fraction of 44% which is mildly reduced. Echo was done 06/08/2016 that showed ejection fraction of 45%, trace aortic regurgitation, status post mitral valve repair, previous mitral regurgitation, mild tricuspid regurgitation with RV systolic pressure of 41 mmHg, which is suggestive of mild pulmonary hypertension, history of coronary artery disease, CABG status post 5-vessel CABG on 05/30/2006 as well as closure of the PFO and mitral valve repair. Patient's grafts were: 1. Left internal mammary artery to LAD. 2. Saphenous vein graft to diagonal 1. 3. Saphenous graft to the obtuse marginal 1. 4. Saphenous vein graft to obtuse marginal 2. 5. Saphenous vein graft to LPDA. History of the small PFO repair for patent foramen ovale status post mitral valve repair. Later on in 2007, patient had plain balloon angioplasty of circumflex and repeat cardiac catheterization on 07/17/2008 showed patent graft. Patient had intervention on the left leg for peripheral arterial disease, and on 06/07/2012, after intervention, patient developed fluid overload and developed CHF. Patient had catheterization on 07/17/2008, which showed triple vessel disease to the [place] vessel but patent DAVIDSON to LAD, patent saphenous graft to diagonal 1 and patent saphenous graft sequential to OM1, OM2 and LPDA. The patient showed 1+ mitral regurgitation. PERSONAL HISTORY: No history of smoking or alcohol abuse. ALLERGIES: NO KNOWN ALLERGIES. HOME MEDICATIONS: Included amlodipine, Zyvox, ferrous sulfate, digoxin, carvedilol, atorvastatin, aspirin, hydralazine. REVIEW OF SYSTEMS: All other systems are reviewed. Positive mentioned in the history; otherwise negative. PHYSICAL EXAMINATION VITAL SIGNS: Blood pressure 158/68, respirations 18, pulse 67, temperature 97.4. HEENT: Head is normocephalic. Eyes, pupils normal, conjunctivae slightly pale. NECK: JVP low. Carotid equal. THORAX: AP diameter normal. LUNGS: Clear. CARDIOVASCULAR: S1 and S2. ABDOMEN: Soft. No tenderness. No organomegaly. EXTREMITIES: Left leg has no edema. Right foot has ulcer at the base of the fifth metatarsal of the right foot open area, also foot and lower part of the right leg showed edema and some redness. No clubbing. No cyanosis. LABORATORY DATA: WBC 5.1, hemoglobin 9.3, hematocrit 28.5, platelet 136. Sugar 161. Sodium 140, potassium 4.3, BUN 30, creatinine 1.8, random sugar 220. Calcium, AST, ALT normal. Total protein 7.0, albumin 3.4, prothrombin time 13.4, INR 1.24 and PTT 31.3. X-ray of the foot did not show any abnormality. Patient's venous Doppler study was negative for thrombophlebitis. Bone scan suggestive of osteomyelitis on the base of the fifth metatarsal of the right foot. Patient's EKG and chest x-ray has been not done. DIAGNOSES: Non-healing ulcer, right foot; possible osteomyelitis of the fifth metatarsal of the right foot, peripheral arterial disease, coronary artery disease status post coronary artery bypass surgery, status post balloon angioplasty, left ventricular systolic dysfunction, ejection fraction of 45%, status post closure of the small patent foramen ovale, status post repair of the mitral valve, diabetes mellitus, hypertension, hyperlipidemia, mild renal systolic dysfunction. PLAN: Patient did not have EKG or chest x-ray; will do the EKG and will also do chest x-ray. Patient on carvedilol 3.125 b.i.d., digoxin 0.125 daily, aspirin 81 mg daily, ferrous sulfate 324 daily, potassium 20 mEq p.o. daily, furosemide 40 b.i.d. atorvastatin 10 mg daily, cefepime 1 g IV daily, amlodipine 10 daily, vancomycin 1 g IV daily. We will repeat the SMA-7 in the morning and will follow with you closely. In the meantime, we will continue present therapy. Mary Tran MD
== END 2017-06-03 16:50 | DRG 300 ==
LOC: ED 14:39 → ERH 18:38 → 5RSO 21:12
PROVIDERS: ADMIT Surgery; ATTEND Surgery
DX: E11.52 Type 2 diabetes mellitus with diabetic peripheral angiopathy with gangrene (principal); I96 Gangrene, not elsewhere classified; M86.9 Osteomyelitis, unspecified; I13.0 Hypertensive heart and chronic kidney disease with heart failure and stage 1 through stage 4 chronic kidney disease, or unspecified chronic kidney disease; E11.22 Type 2 diabetes mellitus with diabetic chronic kidney disease; E11.40 Type 2 diabetes mellitus with diabetic neuropathy, unspecified; I50.9 Heart failure, unspecified; I27.20 Pulmonary hypertension, unspecified; E11.621 Type 2 diabetes mellitus with foot ulcer; L97.519 Non-pressure chronic ulcer of other part of right foot with unspecified severity; I25.10 Atherosclerotic heart disease of native coronary artery without angina pectoris; N18.3 Chronic kidney disease, stage 3 (moderate); D63.1 Anemia in chronic kidney disease; E78.5 Hyperlipidemia, unspecified; E11.69 Type 2 diabetes mellitus with other specified complication; H35.30 Unspecified macular degeneration; H40.9 Unspecified glaucoma; Z79.4 Long term (current) use of insulin; Z95.5 Presence of coronary angioplasty implant and graft; Z95.2 Presence of prosthetic heart valve; Z95.1 Presence of aortocoronary bypass graft; Z95.0 Presence of cardiac pacemaker

== ENCOUNTER 2017-06-03 16:53 | Inpatient (IN) | payer OTHER, BC ==
[2017-06-03 17:17] VITALS: BMI 28.3
[2017-06-03] MEDS: Sodium Chloride 0.45% 1,000 ML IV SCH (17:57)
[2017-06-03] MEDS ORDERED: Oxychlorosene Topical 2 gm Packet TOP SCH (18:00)
[2017-06-03] MEDS: Brimonidine 0.15% 50 DROP/5 ML BOTTLE OD SCH (20:10)
[2017-06-03] MEDS: Dorzolamide 2%/Timolol 0.5% 100 DROP/10 ML BOTTLE OD SCH (20:11)
[2017-06-03] MEDS: Oxychlorosene Topical 2 gm Packet TOP SCH (22:13)
[2017-06-03] MEDS: Insulin Reg-MEDIUM-Coverage SC SCH (22:22)
[2017-06-04] MEDS: Vancomycin 1gm in NS 250ml 1 GM/250 ML BAG IVPB SCH (05:24)
[2017-06-04] MEDS: Cefepime 1gm in NS 100ml 1 GM/100 ML BAG IVPB SCH (05:24)
[2017-06-04] MEDS: Pantoprazole 40 mg EC Tab PO SCH (05:25)
[2017-06-04] MEDS: Enoxaparin 40 mg Syringe SC SCH (05:30)
[2017-06-04] MEDS ORDERED: Collagenase 250 Units/gm Ointment(30 gm) TOP SCH (06:00)
[2017-06-04] MEDS: Insulin Reg-MEDIUM-Coverage SC SCH ×4 (06:45→22:02)
[2017-06-04] MEDS: Oxychlorosene Topical 2 gm Packet TOP SCH ×2 (09:59→22:01)
[2017-06-04] MEDS: Brimonidine 0.15% 50 DROP/5 ML BOTTLE OD SCH ×3 (10:01→17:53)
[2017-06-04] MEDS: Dorzolamide 2%/Timolol 0.5% 100 DROP/10 ML BOTTLE OD SCH ×2 (10:02→17:55)
[2017-06-04] MEDS: Collagenase 250 Units/gm Ointment(30 gm) TOP SCH (10:03)
[2017-06-04] MEDS: Potassium Chloride 20 mEq ER Tab PO SCH (10:04)
--- NOTE | 2017-06-04 13:08 | PN ---
DATE: SUBJECTIVE: The patient was transferred from acute care to the TCU. He remains on IV antibiotic therapy for his poorly healing right foot ulcer and possible osteomyelitis. He is scheduled for an angiogram on Tuesday which is 06/08/2017. The patient will be starting hydration on 06/06/2017 and I will see that he receives Mucomyst. The hope is to decrease his chances of having contrast-induced nephrotoxicity. MEDICATIONS: Medication list reviewed. The patient is on eyedrops, Coreg, digoxin, Ecotrin, Feosol, insulin, potassium, p.o. Lasix, Lipitor, Lovenox, Maxipime, Norvasc, Protonix, Santyl, half-normal saline to be started on 06/06, and vancomycin. PHYSICAL EXAMINATION VITAL SIGNS: Blood pressure 145/64, temperature 98.2, pulse of 76 with a respiratory rate of 18. HEENT: Shows him to be normocephalic, atraumatic. Conjunctivae are pale. Sclerae are nonicteric. NECK: Supple. No neck vein distention. CHEST: Clear to auscultation and percussion. No rales, rhonchi or wheezing. CARDIOVASCULAR: Shows a regular rate and rhythm without audible murmurs, rubs or gallops. ABDOMEN: Soft. Nondistended. Bowel sounds normal. No rebound, guarding or masses. EXTREMITIES: Show a dressing over his right foot. No significant pitting edema. Diminished lower extremity pulses. LABORATORY DATA AND IMAGING: CBC: Last CBC available, white blood cell count 5.1, hemoglobin 9.3, platelet count is 136,000. Last chemistries available from 06/01 showed a BUN of 30 with a creatinine of 1.8, normal electrolytes. Glucose is 195. Calcium was 8.7. Albumin was 3.4. Microbiology was positive for coag-negative staph. The patient's bone scans showed positive uptake consistent with osteomyelitis. Blood cultures are negative at 4 days. ASSESSMENT: 1. Chronic kidney disease stage III. This is in the setting of known diabetic nephropathy. 2. Non-insulin dependant diabetes mellitus, currently on sliding scale insulin. 3. History of diabetic retinopathy, diabetic neuropathy and diabetic nephropathy. 4. Past history of a type 4 renal tubular acidosis. Potassium levels appear normal, but the patient should avoid RONALDO inhibitors and angiotensin receptor blockers. 5. Atrophic left kidney. 6. History of anemia in part secondary to chronic kidney disease. The patient should continue Aranesp and iron. 7. Right foot ulcer, nonhealing. Fifth metatarsal phalangeal joint. With possible osteomyelitis. The patient continues on IV antibiotic therapy. 8. History of secondary hyperparathyroidism. Check phosphorus level. Check vitamin D level. Check PTH level. 9. History of atherosclerotic heart disease, status post coronary artery bypass graft, 5-vessels, appears stable. 10. History of hyperlipidemia. The patient continues on statin therapy. PLAN: 1. In light of the patient's planned angiogram scheduled for 06/08/2017, the patient will start IV fluid hydration on 06/06/2017. I will hold diuretic therapy today prior to, and the day of the angiogram. The patient will begin on Mucomyst therapy on 06/07/2017 and continue through 06/09/2017 in the attempt to minimize contrast nephrotoxicity. 2. Aranesp and iron as noted above. 3. Continue antibiotic therapy. 4. Check phosphorus and start binder therapy on an as needed basis. 5. We will need to monitor labs on a regular basis over the next several days. Meek Peterson MD
[2017-06-04] MEDS: Digoxin 125 mcg (0.125 mg) Tab PO SCH (14:44)
--- NOTE | 2017-06-04 17:27 | CP.PCM.CON ---
History of Present Illness - History of Present Illness History of Present Illness: Infectious Disease Consultation: June 04, 2017 77 yo male with history of left foot osteomyelitis treated with IV antibiotics. The right foot has ulceration that was noted in wound care in March 2017. Multiple cultures from wound care center of the right foot ulcer showing growth of MSSA, Enterobacter, and Klebsiella over the past year. Last cultuers taken showed MSSA. The patient denies fevers or chills. No other complaints. He was placed in a cast while receiving PO antibiotics of Augmentin for 28 days. When cast was removed, the patient still had purulent drainage from ulceration in the base of the 5th toe lateral metaphalangeal area. Bone Scan done. Official reading positive for osteomyelitis of the 5th metatarsal on the right foot. At this time no further surgery by Podiatry. Spoke with Dr. Marie. Needs 6 weeks of IV antibiotics. PMHx: Diabetes Mellitus Hypertension Chronic CHF Back pain Herniated disc CAD PSHx: Pacemaker placement toe amputations Allergies: NKDA Social Hx: No tobacco, EtOH, or illicit drug use Active Medications Acetylcysteine (Acetylcysteine 20%) 3 ml PO Q12 [facility] Stop: 06/09/17 22:01 Amlodipine Besylate (Norvasc) 10 mg PO DAILY [facility] PRN Reason: Protocol Last Admin: 06/04/17 10:03 Dose: 10 mg Aspirin (Ecotrin) 81 mg PO 0800 [facility] PRN Reason: Protocol Last Admin: 06/04/17 10:05 Dose: 81 mg Atorvastatin Calcium (Lipitor) 10 mg PO DIN [facility] PRN Reason: Protocol Brimonidine Tartrate (Alphagan P 0.15% Opht) 1 drop OD TID [facility] PRN Reason: Protocol Last Admin: 06/04/17 14:43 Dose: 1 drop Carvedilol (Coreg) 3.125 mg PO 0800,1800 [facility] PRN Reason: Protocol Last Admin: 06/04/17 10:00 Dose: 3.125 mg Collagenase (Santyl) 0 gm TOP 1000 [facility] PRN Reason: Protocol Last Admin: 06/04/17 10:03 Dose: 1 applic Darbepoetin Todd (Aranesp) 60 mcg SC ONCE ONE Stop: 06/05/17 10:01 Digoxin (Digoxin) 0.125 mg PO 1400 [facility] PRN Reason: Protocol Last Admin: 06/04/17 14:44 Dose: 0.125 mg Dorzolamide/Timolol (Cosopt 2%-0.5% Opht) 1 drop OD BID [facility] PRN Reason: Protocol Last Admin: 06/04/17 10:02 Dose: 1 drop Enoxaparin Sodium (Lovenox) 40 mg SC 0630 [facility] PRN Reason: Protocol Last Admin: 06/04/17 05:30 Dose: 40 mg Ferrous Sulfate (Feosol) 324 mg PO 0800 [facility] PRN Reason: Protocol Last Admin: 06/04/17 10:04 Dose: 324 mg Furosemide (Lasix) 40 mg PO 0600,1600 [facility] PRN Reason: Protocol Last Admin: 06/04/17 05:25 Dose: 40 mg Sodium Chloride (Sodium Chloride 0.45%) 1,000 mls @ 75 mls/hr IV .[id number] [facility] Stop: 06/09/17 12:00 Sodium Chloride (Sodium Chloride 0.45%) 1,000 mls @ 10 mls/hr IV .Q24H [facility] PRN Reason: Protocol Last Admin: 06/03/17 17:57 Dose: 10 mls/hr Cefepime HCl (Maxipime 1gm) 1 gm in 100 mls @ 100 mls/hr IVPB 0600 [facility] PRN Reason: Protocol Stop: 06/11/17 06:59 Last Admin: 06/04/17 05:24 Dose: 100 mls/hr Vancomycin HCl (Vancomycin 1gm) 1 gm in 250 mls @ 167 mls/hr IVPB 0600 [facility] PRN Reason: Protocol Stop: 06/11/17 07:30 Last Admin: 06/04/17 05:24 Dose: 167 mls/hr Insulin Human Regular (Humulin R Med) 0 units SC ACHS [facility] PRN Reason: Protocol Last Admin: 06/04/17 11:47 Dose: 3 units Oxychlorosene Sodium (Clorpactin Wcs-90) 2 gm TOP 1000,2200 [facility] PRN Reason: Protocol Last Admin: 06/04/17 09:59 Dose: 2 gm Pantoprazole Sodium (Protonix Ec Tab) 40 mg PO 0600 [facility] PRN Reason: Protocol Last Admin: 06/04/17 05:25 Dose: 40 mg Potassium Chloride (K-Dur 20 Meq Er Tab) 20 meq PO 0800 [facility] Last Admin: 06/04/17 10:04 Dose: 20 meq Family Hx: none given ROS: No fevers, chills, nausea, vomiting, diarrhea, headaches, dizziness, chest pain , abdominal pain, melena, hematuria, hematemesis, hematochezia, depression, anxiety. Patient with peripheral neuropathy. Past Patient History - Past Social History Smoking Status: Never Smoked - CARDIAC Hx Cardiac Disorders: Yes (pacemaker) - PULMONARY Hx Respiratory Disorders: No - NEUROLOGICAL Hx Neurological Disorder: Yes (neuropathy b/l ankles/feet/no feeling) - HEENT Hx HEENT Problems: Yes Hx Cataracts: Yes Hx Glaucoma: Yes Hx Macular Degeneration: Yes - RENAL Hx Chronic Kidney Disease: No - ENDOCRINE/METABOLIC Hx Diabetes Mellitus Type 1: Yes - HEMATOLOGICAL/ONCOLOGICAL Hx Blood Disorders: No - INTEGUMENTARY Hx Dermatological Problems: No Hx Basil Cell: No - MUSCULOSKELETAL/RHEUMATOLOGICAL Hx Falls: Yes - GASTROINTESTINAL Hx Gastrointestinal Disorders: Yes Other/Comment: Chronic Diarrhea - GENITOURINARY/GYNECOLOGICAL Hx Genitourinary Disorders: Yes Other/Comment: Diarrhea - PSYCHIATRIC Hx Psychophysiologic Disorder: No - SURGICAL HISTORY Hx Cardiac Catheterization: Yes Hx Coronary Stent: Yes Hx Open Heart Surgery: Yes Hx Valve Replacement: Yes - ANESTHESIA Hx Anesthesia: Yes Meds Allergies/Adverse Reactions: Allergies Allergy/AdvReac Type Severity Reaction Status Date / Time No Known Allergies Allergy Verified 05/30/17 15:17 - Medications Medications: Current Medications Acetylcysteine (Acetylcysteine 20%) 3 ml PO Q12 [facility] Stop: 06/09/17 22:01 Amlodipine Besylate (Norvasc) 10 mg PO DAILY [facility] PRN Reason: Protocol Last Admin: 06/04/17 10:03 Dose: 10 mg Aspirin (Ecotrin) 81 mg PO 0800 [facility] PRN Reason: Protocol Last Admin: 06/04/17 10:05 Dose: 81 mg Atorvastatin Calcium (Lipitor) 10 mg PO DIN [facility] PRN Reason: Protocol Brimonidine Tartrate (Alphagan P 0.15% Opht) 1 drop OD TID [facility] PRN Reason: Protocol Last Admin: 06/04/17 14:43 Dose: 1 drop Carvedilol (Coreg) 3.125 mg PO 0800,1800 [facility] PRN Reason: Protocol Last Admin: 06/04/17 10:00 Dose: 3.125 mg Collagenase (Santyl) 0 gm TOP 1000 [facility] PRN Reason: Protocol Last Admin: 06/04/17 10:03 Dose: 1 applic Darbepoetin Todd (Aranesp) 60 mcg SC ONCE ONE Stop: 06/05/17 10:01 Digoxin (Digoxin) 0.125 mg PO 1400 [facility] PRN Reason: Protocol Last Admin: 06/04/17 14:44 Dose: 0.125 mg Dorzolamide/Timolol (Cosopt 2%-0.5% Opht) 1 drop OD BID [facility] PRN Reason: Protocol Last Admin: 06/04/17 10:02 Dose: 1 drop Enoxaparin Sodium (Lovenox) 40 mg SC 0630 [facility] PRN Reason: Protocol Last Admin: 06/04/17 05:30 Dose: 40 mg Ferrous Sulfate (Feosol) 324 mg PO 0800 [facility] PRN Reason: Protocol Last Admin: 06/04/17 10:04 Dose: 324 mg Furosemide (Lasix) 40 mg PO 0600,1600 [facility] PRN Reason: Protocol Last Admin: 06/04/17 05:25 Dose: 40 mg Sodium Chloride (Sodium Chloride 0.45%) 1,000 mls @ 75 mls/hr IV .[id number] [facility] Stop: 06/09/17 12:00 Sodium Chloride (Sodium Chloride 0.45%) 1,000 mls @ 10 mls/hr IV .Q24H [facility] PRN Reason: Protocol Last Admin: 06/03/17 17:57 Dose: 10 mls/hr Cefepime HCl (Maxipime 1gm) 1 gm in 100 mls @ 100 mls/hr IVPB 0600 [facility] PRN Reason: Protocol Stop: 06/11/17 06:59 Last Admin: 06/04/17 05:24 Dose: 100 mls/hr Vancomycin HCl (Vancomycin 1gm) 1 gm in 250 mls @ 167 mls/hr IVPB 0600 [facility] PRN Reason: Protocol Stop: 06/11/17 07:30 Last Admin: 06/04/17 05:24 Dose: 167 mls/hr Insulin Human Regular (Humulin R Med) 0 units SC ACHS [facility] PRN Reason: Protocol Last Admin: 06/04/17 11:47 Dose: 3 units Oxychlorosene Sodium (Clorpactin Wcs-90) 2 gm TOP 1000,2200 [facility] PRN Reason: Protocol Last Admin: 06/04/17 09:59 Dose: 2 gm Pantoprazole Sodium (Protonix Ec Tab) 40 mg PO 0600 [facility] PRN Reason: Protocol Last Admin: 06/04/17 05:25 Dose: 40 mg Potassium Chloride (K-Dur 20 Meq Er Tab) 20 meq PO 0800 [facility] Last Admin: 06/04/17 10:04 Dose: 20 meq Physical Exam - Constitutional Appears: Non-toxic, No Acute Distress, Chronically Ill - Head Exam Head Exam: ATRAUMATIC, NORMOCEPHALIC - Eye Exam Eye Exam: EOMI, PERRL Pupil Exam: NORMAL ACCOMODATION, PERRL - ENT Exam ENT Exam: Mucous Membranes Moist, Normal External Ear Exam, TM's Normal Bilaterally - Neck Exam Neck exam: Positive for: Full Rom, Normal Inspection - Respiratory Exam Respiratory Exam: Clear to Auscultation Bilateral, NORMAL BREATHING PATTERN. absent: Rales, Rhonchi, Wheezes - Cardiovascular Exam Cardiovascular Exam: REGULAR RHYTHM, RRR, +S1, +S2 - GI/Abdominal Exam GI & Abdominal Exam: Normal Bowel Sounds, Soft. absent: Distended, Tenderness - Extremities Exam Extremities exam: Positive for: full ROM Additional comments: Peripheral neuropathy of bilateral lower extremities. Edema of the right foot, ankle, lower leg. right foot ulceration near base of 5th toe lateral metaphalangeal area stage 2-3 with possible tract - Neurological Exam Neurological exam: Alert, CN II-XII Intact, Oriented x3 - Psychiatric Exam Psychiatric exam: Normal Affect, Normal Mood - Skin Skin Exam: Intact, Normal Color Additional comments: except for the right foot as listed above. Results - Vital Signs Recent Vital Signs: Last Vital Signs Temp 98.1 F 06/04/17 10:00 Pulse 71 06/04/17 10:00 Resp 18 06/04/17 10:00 BP 146/76 06/04/17 10:03 Pulse Ox 93 L 06/04/17 10:00 - Labs Labs: Laboratory Results - last 24 hr 06/03/17 06/04/17 06/04/17 21:52 05:26 11:10 POC Glucose (mg/dL) 181 H 135 H 240 H 06/04/17 17:07 POC Glucose (mg/dL) 211 H Assessment & Plan - Assessment and Plan (Free Text) Assessment: 77 yo male with history of DM, HTN, CAD, and Chronic CHF and possible PVD with non healing right lateral foot ulceration that is Stage III with potential sinus tract with tracking to bone. Cannot rule out osteomyeltis. Cultures of the foot in the last 2 months had shown MSSA. Was on Augmentin for 28 day course doses at 875mg q6hrs. At this time, Continue with Cefepime and Vancomycin to cover for gram negative including Pseudomonas and potential MRSA. The patient should be worked up for osteomyelitis. Patient cannot get MRI due to pacemaker. Bone scan showing increased uptake consistent with osteomyelitis in the right foot 5th metatarsal. Blood cultures negative to date. Wound culture with coagulase negative staph. Continue broad spectrum coverage. Supportive care. ESR up to 73 now. Consider 6 weeks cefepime and IV Vancomycin. Check levels of Vancomycin. Thank you for allowing me to participate in the care of the patient, we will follow with you.
[2017-06-04] MEDS: Sodium Chloride 0.45% 1,000 ML IV SCH (18:06)
--- NOTE | 2017-06-05 00:01 | CON ---
DATE: 06/04/2017 LOCATION: Patient is in room 316, bed 1. REASON FOR CONSULTATION: Coronary artery disease, CHF, nonhealing ulcer on the foot, possibility of osteomyelitis, peripheral vascular disease. HISTORY OF PRESENT ILLNESS: Patient was on the medical floor, now is admitted to Transitional Care Unit for physical therapy and deconditioning. Patient developed ulcer on the lateral part of the right foot, which is not healing. Patient has severe peripheral vascular disease. Patient also has swelling and redness. Patient's bone scan suggestive of osteomyelitis. Patient denies any chest pain, shortness of breath, or palpitation. Patient is a known case of congestive heart failure, coronary artery disease, status post coronary artery bypass surgery, repair of small PFO and mitral valve repair, which was done on 05/30/2006. Patient is also known to have diabetes, hypertension, hyperlipidemia, peripheral arterial disease. Before, he had an ulcer on the left foot, which has healed. Patient denies any chest pain, shortness of breath, or palpitation. PAST MEDICAL HISTORY: Significant for coronary artery disease, status post CABG 10 years ago. Patient initially admitted with acute coronary syndrome, underwent cardiac catheterization on 05/30/2006, revealed triple-vessel disease. Subsequently, patient had a coronary artery bypass surgery at [facility], DAVIDSON to LAD, saphenous vein graft to diagonal-1, saphenous vein graft to OM1 and OM2 and LPDA as well as closure of a small PFO and mitral valve repair. Patient also had angioplasty of LPDA, plain balloon angioplasty on 07/13/2007. Then, patient had subsequent cardiac catheterization because of abnormal stress test on 07/17/2008 and medical treatment was recommended because bypass was open at that time. Patient had an echocardiogram on 06/11/2016, which showed left ventricle normal sized, [id number] concentric left ventricular hypertrophy, systolic function mildly impaired, ejection fraction of 45%, trace aortic regurg, status post mitral valve repair, trace mitral regurg, mild tricuspid regurg, RVSP 41 mmHg, small left pleural effusion. Patient had a stress test on 06/09/2016, which showed fixed defect with LV ejection fraction of 44%, which is same which was seen on the echo. PERSONAL HISTORY: No history of smoking or drinking. ALLERGIES: NO ALLERGIES. FAMILY HISTORY: Not significant. REVIEW OF SYSTEMS: All the systems are reviewed; positives mentioned in the history, others were negative. PHYSICAL EXAMINATION: VITAL SIGNS: Blood pressure 138/61, respirations 18, pulse 71, temperature 98.1. HEENT: Head: Normocephalic. Eyes: Pupils normal. Conjunctivae slightly pale. NECK: JVP low. Carotids equal. THORAX: AP diameter normal. LUNGS: Clear. CARDIOVASCULAR: S1 and S2. ABDOMEN: Soft. No tenderness. No organomegaly. EXTREMITIES: Patient has open area on the right foot and some swelling and some redness. Otherwise, no clubbing, no cyanosis. LABORATORY DATA: WBC 5.1, hemoglobin 9.3, hematocrit 28.5, platelets 136. Random sugar 240, earlier sugar was 135. Sodium 140, potassium 4.3, BUN 30, creatinine 1.8. Calcium, bilirubin, AST, ALT normal. Total protein, albumin normal. Chest x-ray on 06/03/2017, no active disease. EKG done on 06/03/2017, pacemaker rhythm. Patient's bone scan on 06/01/2017, distal aspect of the fifth metatarsal/proximal phalanx, right fifth digit, positive for osteomyelitis. Bilateral foot was negative. DIAGNOSES: Osteomyelitis of the right foot, distal aspect of the fifth metatarsal, oblique proximal phalanx fifth digit; peripheral arterial disease; coronary artery disease; history of coronary bypass surgery; history of angioplasty, left ventricular dysfunction, ejection fraction 45%; history of congestive heart failure; diabetes; hypertension; hyperlipidemia; history of patent foramen ovale repair and mitral valve repair; history of pacemaker insertion; deconditioning. PLAN: Patient is getting IV fluid therapy. Patient is planning to go for angioplasty for peripheral vascular disease on Tuesday. Coreg 3.125 p.o. daily, digoxin 0.125 p.o. daily, aspirin 81 mg daily, ferrous sulfate 324 mg p.o. daily, potassium 20 mEq daily, furosemide 40 mg p.o. b.i.d., atorvastatin 10 daily, Lovenox 40 mg subcu daily, amlodipine 10 mg daily, Protonix 40 daily, vancomycin 1 g IV daily. Continue present therapy. We will follow. Mary Tran MD [facility] # [id number]
[2017-06-05] MEDS: Pantoprazole 40 mg EC Tab PO SCH (05:38)
[2017-06-05] MEDS: Cefepime 1gm in NS 100ml 1 GM/100 ML BAG IVPB SCH (05:38)
[2017-06-05] MEDS: Enoxaparin 40 mg Syringe SC SCH (05:39)
[2017-06-05] MEDS: Vancomycin 1gm in NS 250ml 1 GM/250 ML BAG IVPB SCH (06:23)
[2017-06-05] MEDS: Insulin Reg-MEDIUM-Coverage SC SCH ×4 (07:06→22:03)
[2017-06-05] MEDS: Potassium Chloride 20 mEq ER Tab PO SCH (07:57)
[2017-06-05 07:59] LABS: HEMOGLOBIN 9.3 g/dL (14.0-18.0); MEAN CELL VOLUME 86.1 fl (80.0-105.0); MEAN CORPUSCULAR HEMOGLOBIN 27.5 pg (25.0-35.0); MEAN PLATELET VOLUME 9.2 fl (7.0-11.0); RBC 3.38 10^6/uL (3.5-6.1); RED CELL DISTRIBUTION WIDTH 15.8 % (11.5-14.5); WHITE BLOOD COUNT 4.2 10^3/ul (4.5-11.0)
[2017-06-05 08:19] LABS: IRON 41 ug/dL (45-180)
[2017-06-05 08:23] LABS: ALBUMIN 3.4 g/dL (3.0-4.8); CALCIUM 9.4 mg/dL (8.4-10.5)
[2017-06-05 08:29] LABS: % IRON SATURATION 18 % (20-55); TOTAL IRON BINDING CAPACITY 227 ug/dL (261-462)
[2017-06-05] MEDS: Brimonidine 0.15% 50 DROP/5 ML BOTTLE OD SCH ×3 (09:38→17:50)
[2017-06-05] MEDS: Oxychlorosene Topical 2 gm Packet TOP SCH ×2 (09:38→21:08)
[2017-06-05] MEDS: Dorzolamide 2%/Timolol 0.5% 100 DROP/10 ML BOTTLE OD SCH ×2 (09:38→17:51)
[2017-06-05] MEDS: Collagenase 250 Units/gm Ointment(30 gm) TOP SCH (09:40)
[2017-06-05] MEDS ORDERED: Darbepoetin Alfa 60 mcg/ml Inj SC ONE (10:00)
[2017-06-05 11:54] LABS: FERRITIN 90.1 ng/mL
[2017-06-05] MEDS: Digoxin 125 mcg (0.125 mg) Tab PO SCH (13:44)
--- NOTE | 2017-06-05 14:28 | CP.PCM.PN ---
<JamesonKatelynmilagisela - Last Filed: 06/05/17 14:24> Subjective - Date & Time of Evaluation Date of Evaluation: 06/05/17 Time of Evaluation: 14:24 - Subjective Subjective: Podiatry Progress Note- Dr. Marie/Dr. Bahena 77 y.o old seen and evaluated at bedside for right foot lateral ulceration. Patient is seen resting comfortably in bed, in NAD, and AA0x3. Patient denies acute overnight events. Patient denies n/v/sob/cp/chills of f. Patient has no new pedal complaints at this time. Objective - Vital Signs/Intake and Output Vital Signs (last 24 hours): Temp Pulse Resp BP Pulse Ox 97.1 F L 87 18 145/66 100 06/04/17 17:33 06/05/17 12:02 06/04/17 17:33 06/05/17 09:38 06/04/17 17:33 Intake and Output: 06/05/17 06/05/17 06:59 18:59 Intake Total Balance - Medications Medications: Current Medications Acetylcysteine (Acetylcysteine 20%) 3 ml PO Q12 [facility] Stop: 06/09/17 22:01 Amlodipine Besylate (Norvasc) 10 mg PO DAILY [facility] PRN Reason: Protocol Last Admin: 06/05/17 09:38 Dose: 10 mg Aspirin (Ecotrin) 81 mg PO 0800 [facility] PRN Reason: Protocol Last Admin: 06/05/17 07:58 Dose: 81 mg Atorvastatin Calcium (Lipitor) 10 mg PO DIN [facility] PRN Reason: Protocol Last Admin: 06/04/17 18:05 Dose: 10 mg Brimonidine Tartrate (Alphagan P 0.15% Opht) 1 drop OD TID [facility] PRN Reason: Protocol Last Admin: 06/05/17 13:45 Dose: 1 drop Carvedilol (Coreg) 3.125 mg PO 0800,1800 [facility] PRN Reason: Protocol Last Admin: 06/05/17 07:57 Dose: 3.125 mg Collagenase (Santyl) 0 gm TOP 1000 [facility] PRN Reason: Protocol Last Admin: 06/05/17 09:40 Dose: 1 applic Digoxin (Digoxin) 0.125 mg PO 1400 [facility] PRN Reason: Protocol Last Admin: 06/05/17 13:44 Dose: 0.125 mg Dorzolamide/Timolol (Cosopt 2%-0.5% Opht) 1 drop OD BID [facility] PRN Reason: Protocol Last Admin: 06/05/17 09:38 Dose: 1 drop Enoxaparin Sodium (Lovenox) 40 mg SC 0630 [facility] PRN Reason: Protocol Last Admin: 06/05/17 05:39 Dose: 40 mg Ferrous Sulfate (Feosol) 324 mg PO 0800 [facility] PRN Reason: Protocol Last Admin: 06/05/17 07:58 Dose: 324 mg Sodium Chloride (Sodium Chloride 0.45%) 1,000 mls @ 75 mls/hr IV .[id number] [facility] Stop: 06/09/17 12:00 Sodium Chloride (Sodium Chloride 0.45%) 1,000 mls @ 10 mls/hr IV .Q24H [facility] PRN Reason: Protocol Last Admin: 06/04/17 18:06 Dose: 10 mls/hr Cefepime HCl (Maxipime 1gm) 1 gm in 100 mls @ 100 mls/hr IVPB 0600 [facility] PRN Reason: Protocol Stop: 06/11/17 06:59 Last Admin: 06/05/17 05:38 Dose: 100 mls/hr Vancomycin HCl (Vancomycin 1gm) 1 gm in 250 mls @ 167 mls/hr IVPB 0600 [facility] PRN Reason: Protocol Stop: 06/11/17 07:30 Last Admin: 06/05/17 06:23 Dose: 167 mls/hr Insulin Human Regular (Humulin R Med) 0 units SC ACHS [facility] PRN Reason: Protocol Last Admin: 06/05/17 12:14 Dose: 1 units Oxychlorosene Sodium (Clorpactin Wcs-90) 2 gm TOP 1000,2200 [facility] PRN Reason: Protocol Last Admin: 06/05/17 09:38 Dose: 2 gm Pantoprazole Sodium (Protonix Ec Tab) 40 mg PO 0600 [facility] PRN Reason: Protocol Last Admin: 06/05/17 05:38 Dose: 40 mg - Labs Labs: 06/05/17 07:30 06/05/17 07:30 - Constitutional Appears: Well, Non-toxic, No Acute Distress - Extremities Exam Additional comments: Vasc: Pedal pulses nonpalpable, absent pedal hair growth noted bilaterally, CFT delayed to all digits, edema noted to LE R>L Ortho: Pain with palpation to the right foot Derm: ulceration full thickness noted to the plantar aspect of 5th right MPJ, measuring approximately 2 cm x 1.8 cm x .3 cm. Wound base is mainly fibrotic with periwound maceration - no maceration was noted on the periwound area yesterday, No malodor. No purulence. No abscess or fluctanance noted. No edema, erythema, no ascending cellulitis noted. Skin is thin, shiny, and discolored bilaterally Neuro: gross and protective sensation diminished - Neurological Exam Neurological Exam: Alert, Awake, Oriented x3 - Psychiatric Exam Psychiatric exam: Normal Affect, Normal Mood Assessment and Plan - Assessment and Plan (Free Text) Assessment: 77 y.o male with right foot lateral plantar full thickness ulceration secondary to DM, neuropathy, and pressure Plan: Patient examined and evaluated Discussed plan in detail with attending Dr. Marie Labs, chart, vitals reviewed- afebrile, absent leukocytosis Cleansed ulceration with saline solution Santyl applied in the wound bed with no excess on the skin to prevent maceration and DSD applied Wound culture results-coagulase negative staphylococcus Patient has a pacemaker, could not take MRI to r/o OM Bone scan taken and shows acute osseous process involving distal aspect of the 5th metatarsal/proximal phalanx right 5th digit Abx per ID F/U vascular consult and recommendations Patient may PWB in surgical shoe <Dorcas Marie - Last Filed: 06/12/17 14:44> Objective - Vital Signs/Intake and Output Vital Signs (last 24 hours): Temp Pulse Resp BP Pulse Ox 98.1 F 77 18 139/61 93 L 06/10/17 06:00 06/10/17 08:28 06/10/17 06:00 06/10/17 09:44 06/10/17 06:00 - Labs Labs: 06/10/17 06:47 06/10/17 06:47 PT 13.6 SECONDS (9.4-12.5) H 06/07/17 06:45 INR 1.18 (0.93-1.08) H 06/07/17 06:45 APTT 34.0 Seconds (25.1-36.5) 06/07/17 06:45 Attending/Attestation - Attestation I have personally seen and examined this patient.: Yes I have fully participated in the care of the patient.: Yes I have reviewed all pertinent clinical information, including history, physical exam and plan: Yes
--- NOTE | 2017-06-05 15:09 | PN ---
DATE: 06/05/2017 LOCATION: The patient in room 316, bed 1. REASON FOR CONSULTATION AND FOLLOWUP: History of coronary artery disease, history of bypass surgery, history of stent insertion, history of mitral valve repair, history of small PFO closure, nonhealing ulcer on the foot - possibility of osteomyelitis, peripheral arterial disease and pacemaker. SUBJECTIVE: The patient is lying comfortably in bed without any chest pain, shortness of breath, or palpitation. The patient still has no cardiac symptoms. PHYSICAL EXAMINATION VITAL SIGNS: Blood pressure is 145/66, respirations 18, and pulse 72. The patient is afebrile. HEENT: Head is normocephalic. Eyes: Pupils normal. Conjunctivae slightly pale. NECK: JVP low. Carotids are equal. THORAX: AP diameter is normal. LUNGS: Clear. CARDIOVASCULAR: S1, S2. ABDOMEN: Soft, nontender. No organomegaly. EXTREMITIES: No clubbing. No cyanosis. LABORATORY DATA: WBC 4.2, hemoglobin 9.3, hematocrit 29.1, and platelets 145,000. Sodium 142, potassium 4.9, BUN 34, and creatinine 1.8. Calcium, phosphorus and magnesium are normal. Random glucose 200. AST and ALT normal. DIAGNOSES: Osteomyelitis of the right foot - distal aspect of the fifth metatarsal and proximal phalanx of the fifth digit, peripheral arterial disease, coronary artery disease with a history of coronary artery bypass graft surgery and angioplasty, left ventricular dysfunction - ejection fraction 45%, history of congestive heart failure in the past, diabetes, hypertension, hyperlipidemia, history of foramen ovale repair with mitral valve repair and coronary artery bypass graft surgery. The patient had a history of pacemaker insertion, deconditioning, and kidney dysfunction. PLAN: The patient is getting IV fluids at 75 mL an hour, carvedilol 3.125 mg b.i.d., digoxin 0.125 mg daily, aspirin 81 mg daily, ferrous sulfate 324 mg p.o. daily, atorvastatin 10 mg daily, Lovenox 40 mg subcutaneously daily, cefepime 1 g IV daily, amlodipine 10 mg daily, Protonix 40 mg daily, and vancomycin 1 g IV daily. The patient is on furosemide 40 mg p.o. b.i.d. - we will discontinue that because of BUN and creatinine being high and the patient going for angiography for peripheral vascular disease on Tuesday. We will try to improve the BUN and creatinine. Digoxin 0.125 mg p.o. daily, aspirin 81 mg daily, and ferrous sulfate 324 mg p.o. daily. Mary Tran MD [facility] # [id number]
[2017-06-05] MEDS: Sodium Chloride 0.45% 1,000 ML IV SCH (17:53)
--- NOTE | 2017-06-05 18:12 | CP.PCM.PN ---
Subjective - Date & Time of Evaluation Date of Evaluation: 06/05/17 Time of Evaluation: 16:00 - Subjective Subjective: Infectious Disease Follow Up: June 05, 2017 77 yo male with history of left foot osteomyelitis treated with IV antibiotics. The right foot has ulceration that was noted in wound care in March 2017. Multiple cultures from wound care center of the right foot ulcer showing growth of MSSA, Enterobacter, and Klebsiella over the past year. Last cultuers taken showed MSSA. The patient denies fevers or chills. No other complaints. He was placed in a cast while receiving PO antibiotics of Augmentin for 28 days. When cast was removed, the patient still had purulent drainage from ulceration in the base of the 5th toe lateral metaphalangeal area. Bone Scan done. Official reading positive for osteomyelitis of the 5th metatarsal on the right foot. At this time no further surgery by Podiatry. Spoke with Dr. Marie. Needs 6 weeks of IV antibiotics. Noted patient is soaking the foot as per PMD orders. Objective - Vital Signs/Intake and Output Vital Signs (last 24 hours): Temp Pulse Resp BP Pulse Ox 97.9 F 87 18 146/67 97 06/05/17 10:00 06/05/17 12:02 06/05/17 10:00 06/05/17 10:00 06/05/17 10:00 Intake and Output: 06/05/17 06/05/17 06:59 18:59 Intake Total Balance - Medications Medications: Current Medications Acetylcysteine (Acetylcysteine 20%) 3 ml PO Q12 DORIS Stop: 06/09/17 22:01 Amlodipine Besylate (Norvasc) 10 mg PO DAILY DORSI PRN Reason: Protocol Last Admin: 06/05/17 09:38 Dose: 10 mg Aspirin (Ecotrin) 81 mg PO 0800 DORIS PRN Reason: Protocol Last Admin: 06/05/17 07:58 Dose: 81 mg Atorvastatin Calcium (Lipitor) 10 mg PO DIN DORIS PRN Reason: Protocol Last Admin: 06/05/17 16:45 Dose: 10 mg Brimonidine Tartrate (Alphagan P 0.15% Opht) 1 drop OD TID DORIS PRN Reason: Protocol Last Admin: 06/05/17 17:50 Dose: 1 drop Carvedilol (Coreg) 3.125 mg PO 0800,1800 DORIS PRN Reason: Protocol Last Admin: 06/05/17 17:50 Dose: 3.125 mg Collagenase (Santyl) 0 gm TOP 1000 DORIS PRN Reason: Protocol Last Admin: 06/05/17 09:40 Dose: 1 applic Digoxin (Digoxin) 0.125 mg PO 1400 DORIS PRN Reason: Protocol Last Admin: 06/05/17 13:44 Dose: 0.125 mg Dorzolamide/Timolol (Cosopt 2%-0.5% Opht) 1 drop OD BID DORIS PRN Reason: Protocol Last Admin: 06/05/17 17:51 Dose: 1 drop Enoxaparin Sodium (Lovenox) 40 mg SC 0630 DORIS PRN Reason: Protocol Last Admin: 06/05/17 05:39 Dose: 40 mg Ferrous Sulfate (Feosol) 324 mg PO 0800 DORIS PRN Reason: Protocol Last Admin: 06/05/17 07:58 Dose: 324 mg Sodium Chloride (Sodium Chloride 0.45%) 1,000 mls @ 75 mls/hr IV .[id number] DORIS Stop: 06/09/17 12:00 Sodium Chloride (Sodium Chloride 0.45%) 1,000 mls @ 10 mls/hr IV .Q24H DORIS PRN Reason: Protocol Last Admin: 06/05/17 17:53 Dose: 10 mls/hr Cefepime HCl (Maxipime 1gm) 1 gm in 100 mls @ 100 mls/hr IVPB 0600 DORIS PRN Reason: Protocol Stop: 06/11/17 06:59 Last Admin: 06/05/17 05:38 Dose: 100 mls/hr Vancomycin HCl (Vancomycin 1gm) 1 gm in 250 mls @ 167 mls/hr IVPB 0600 DORIS PRN Reason: Protocol Stop: 06/11/17 07:30 Last Admin: 06/05/17 06:23 Dose: 167 mls/hr Insulin Human Regular (Humulin R Med) 0 units SC ACHS DORIS PRN Reason: Protocol Last Admin: 06/05/17 16:44 Dose: 3 units Oxychlorosene Sodium (Clorpactin Wcs-90) 2 gm TOP 1000,2200 DORIS PRN Reason: Protocol Last Admin: 06/05/17 09:38 Dose: 2 gm Pantoprazole Sodium (Protonix Ec Tab) 40 mg PO 0600 DORIS PRN Reason: Protocol Last Admin: 06/05/17 05:38 Dose: 40 mg - Labs Labs: 06/05/17 07:30 06/05/17 07:30 - Constitutional Appears: Non-toxic, No Acute Distress, Chronically Ill - Head Exam Head Exam: ATRAUMATIC, NORMOCEPHALIC - Eye Exam Eye Exam: EOMI, PERRL Pupil Exam: NORMAL ACCOMODATION, PERRL - ENT Exam ENT Exam: Mucous Membranes Moist, Normal External Ear Exam, TM's Normal Bilaterally - Neck Exam Neck Exam: Full ROM, Normal Inspection - Respiratory Exam Respiratory Exam: Clear to Ausculation Bilateral, NORMAL BREATHING PATTERN. absent: Rales, Rhonchi, Wheezes - Cardiovascular Exam Cardiovascular Exam: REGULAR RHYTHM, RRR, +S1, +S2 - GI/Abdominal Exam GI & Abdominal Exam: Soft, Normal Bowel Sounds. absent: Distended, Tenderness - Extremities Exam Extremities Exam: Full ROM Additional comments: Peripheral neuropathy of bilateral lower extremities. Edema of the right foot, ankle, lower leg. right foot ulceration near base of 5th toe lateral metaphalangeal area stage 2-3 with possible tract - Neurological Exam Neurological Exam: Alert, Awake, CN II-XII Intact, Oriented x3 - Psychiatric Exam Psychiatric exam: Normal Affect, Normal Mood - Skin Skin Exam: Intact, Normal Color Additional comments: except for the right foot as listed above. The right foot also appears macerated today. Assessment and Plan - Assessment and Plan (Free Text) Assessment: 77 yo male with history of DM, HTN, CAD, and Chronic CHF and possible PVD with non healing right lateral foot ulceration that is Stage III with potential sinus tract with tracking to bone. Cannot rule out osteomyeltis. Cultures of the foot in the last 2 months had shown MSSA. Was on Augmentin for 28 day course doses at 875mg q6hrs. At this time, Continue with Cefepime and Vancomycin to cover for gram negative including Pseudomonas and potential MRSA. The patient should be worked up for osteomyelitis. Patient cannot get MRI due to pacemaker. Bone scan showing increased uptake consistent with osteomyelitis in the right foot 5th metatarsal. Blood cultures negative to date. Wound culture with coagulase negative staph. Continue broad spectrum coverage. Supportive care. ESR up to 73 now. Consider 6 weeks cefepime and IV Vancomycin. Check levels of Vancomycin. Thank you for allowing me to participate in the care of the patient, we will follow with you.
[2017-06-06] MEDS: Cefepime 1gm in NS 100ml 1 GM/100 ML BAG IVPB SCH (05:18)
[2017-06-06] MEDS: Vancomycin 1gm in NS 250ml 1 GM/250 ML BAG IVPB SCH (05:19)
[2017-06-06] MEDS: Pantoprazole 40 mg EC Tab PO SCH (05:21)
[2017-06-06 05:52] LABS: HEMOGLOBIN 9.1 g/dL (14.0-18.0); MEAN CELL VOLUME 85.6 fl (80.0-105.0); MEAN CORPUSCULAR HEMOGLOBIN 27.8 pg (25.0-35.0); MEAN CORPUSCULAR HGB CONC 32.5 g/dl (31.0-37.0); RBC 3.27 10^6/uL (3.5-6.1); RED CELL DISTRIBUTION WIDTH 15.6 % (11.5-14.5); WHITE BLOOD COUNT 3.9 10^3/ul (4.5-11.0)
[2017-06-06 06:36] LABS: ALB/GLOB RATIO 0.9 (1.1-1.8); ALBUMIN 3.2 g/dL (3.0-4.8); CALCIUM 9.2 mg/dL (8.4-10.5)
[2017-06-06] MEDS: Enoxaparin 40 mg Syringe SC SCH (06:45)
[2017-06-06] MEDS: Insulin Reg-MEDIUM-Coverage SC SCH ×4 (07:02→22:01)
[2017-06-06] MEDS: Brimonidine 0.15% 50 DROP/5 ML BOTTLE OD SCH ×3 (09:52→18:24)
[2017-06-06] MEDS: Dorzolamide 2%/Timolol 0.5% 100 DROP/10 ML BOTTLE OD SCH ×2 (09:53→18:24)
[2017-06-06] MEDS: Collagenase 250 Units/gm Ointment(30 gm) TOP SCH (09:57)
[2017-06-06] MEDS: Oxychlorosene Topical 2 gm Packet TOP SCH (09:57)
[2017-06-06] MEDS: Sodium Chloride 0.45% 1,000 ML IV SCH ×3 (12:02→18:25)
[2017-06-06] MEDS: Digoxin 125 mcg (0.125 mg) Tab PO SCH (14:34)
--- NOTE | 2017-06-06 15:23 | PN ---
DATE: SUBJECTIVE: The patient is currently seen sitting comfortable in his room in the TCU. He remains on IV antibiotic therapy for his poorly healing right foot ulcer and possible osteomyelitis. The patient is scheduled for an angiogram on 06/08/2017. The patient will be starting hydration today. He will also receive Mucomyst for the possible benefit this medication might aid in preventing nephrotoxicity from contrast media. MEDICATIONS: Medication list reviewed. The patient is currently on acetylcysteine, eyedrops, Coreg, digoxin, Ecotrin, Feosol, insulin, Lipitor, Lovenox, Maxipime, Norvasc, Protonix, Santyl, half-normal saline at 75 mL an hour and IV vancomycin. OBJECTIVE: VITAL SIGNS: Blood pressure 136/64, temperature 97.4, respiratory rate is 18 with a pulse of 67. HEENT: Shows him to be normocephalic, atraumatic. Conjunctivae are pale. Sclerae nonicteric. NECK: Supple. No neck vein distention. CHEST: Clear to auscultation and percussion. No rales, rhonchi or wheezing. CARDIOVASCULAR: Shows a regular rate and rhythm without audible murmurs, rubs or gallops. ABDOMEN: Soft. Bowel sounds normal. No rebound, guarding or masses. EXTREMITIES: Show dressing over his right foot with trace to 1+ pitting edema of his right lower extremity. Diminished lower extremity pulses bilaterally. LABORATORY DATA AND IMAGING: CBC today: White blood cell count 3.9, hemoglobin 9.1 with a platelet count of 135,000. Chemistries today showed normal electrolytes, BUN remains stable in the 30s, it is currently 37. Creatinine remains stable, it is currently 1.8. His blood cultures from Acute Care were negative. The patient's bone scan was positive for increased uptake consistent with osteomyelitis. Microbiology was positive for coag-negative staph. ASSESSMENT: 1. Chronic kidney disease stage III, this is in the setting of known diabetic nephropathy. 2. History of [id number] diabetes mellitus, currently on insulin. 3. History of diabetic retinopathy, diabetic neuropathy and diabetic nephropathy. 4. Past history of type 4 renal tubular acidosis. Potassium levels are presently normal. The patient will avoid angiotensin converting enzyme inhibitors, angiotensin receptor blockers. 5. History of an atrophic left kidney. 6. History of anemia in part secondary to chronic kidney disease. The patient should continue Aranesp and iron. His last dose of Aranesp was 60 mcg on 06/05/2017. 7. Right foot ulcer, nonhealing with a fifth metatarsophalangeal joint possible osteomyelitis. The patient continues on prolonged course of IV antibiotic therapy. 8. History of secondary hyperparathyroidism. The patient's last phosphorus level was 3.6, which is acceptable. The patient presently is not receiving binder therapy. 9. History of atherosclerotic heart disease, status post coronary artery bypass graft surgery, five-vessel, stable. 10. History of hyperlipidemia, stable on statin therapy. PLAN: 1. Agree with plans for Mucomyst and for IV fluid hydration in preparation for Wednesdays angiogram study. This will be done on 06/08/2017. 2. Continue Aranesp and iron. I will increase iron to three times a day in light of his iron saturation of less than 20%. 3. Continue renal diet. No binder therapy necessary at this point in time. Phosphorus level remains acceptable. 4. Continue to monitor labs closely, especially in the 24 to 48-hour period post the angio study of his lower extremity. Meek Peterson MD
--- NOTE | 2017-06-06 16:08 | PN ---
DATE: 06/06/2017 REASON FOR CONSULTATION AND FOLLOWUP: Coronary artery disease, history of bypass surgery, pacemaker insertion, mitral valve repair, closure of small PFO, renal dysfunction, peripheral arterial disease with an open ulcer on the foot with the possibility of osteomyelitis. SUBJECTIVE: The patient is sitting in chair without any cardiac symptoms. No chest pain, no shortness of breath, no palpitations. PHYSICAL EXAMINATION VITAL SIGNS: Blood pressure 136/64, respirations 18, pulse 67, temperature 97.4. HEENT: Head is normocephalic. Eyes: Pupils normal. Conjunctivae slightly pale. NECK: JVP low. Carotids equal. THORAX: AP diameter normal. LUNGS: Clear. CARDIOVASCULAR: S1, S2. ABDOMEN: Soft, nontender. No organomegaly. EXTREMITIES: There is ulcer on the right foot. No clubbing, no cyanosis. LABORATORY DATA: WBC 3.9, hemoglobin 9.1, hematocrit 28, platelet 135,000. Sodium 142, potassium 4.5, BUN 37, creatinine 1.8, random sugar 167. Calcium, phosphorus and magnesium normal. Total protein and albumin normal. AST and ALT normal. DIAGNOSES: Osteomyelitis of right foot with open ulcer in distal aspect of the fifth metatarsal and proximal phalanx of the fifth digit on the right foot, peripheral artery disease, coronary artery disease, history of coronary artery bypass surgery and angioplasties, left ventricular dysfunction, ejection fraction of 45%, history of congestive heart failure, history of mitral valve repair and closure of small patent foramen ovale at the time of coronary artery bypass graft, diabetes mellitus, hypertension, hyperlipidemia, anemia, renal dysfunction. PLAN: The patient is getting IV fluid. I stopped the Lasix to hydrate the patient. Continue IV fluid, carvedilol 3.125 mg b.i.d., digoxin 0.125 mg daily, aspirin 81 mg daily, ferrous sulfate 324 mg daily, Lipitor 10 mg daily, Lovenox 40 mg subcu daily, cefepime 1 g IV daily, amlodipine 10 mg daily, Protonix 40 daily, vancomycin 1 g IV daily. We will continue present therapy and we will follow with you. Mary Tran MD [facility] # [id number]
--- NOTE | 2017-06-06 17:07 | CP.PCM.PN ---
<Erick Porras - Last Filed: 06/06/17 17:03> Subjective - Date & Time of Evaluation Date of Evaluation: 06/06/17 Time of Evaluation: 17:03 - Subjective Subjective: Podiatry Progress Note- Dr. Marie/Dr. Bahena 77 y.o old seen and evaluated at bedside for right foot lateral ulceration. Patient is seen resting comfortably in bed, in NAD, and AA0x3. Patient denies acute overnight events. Patient denies n/v/sob/cp/chills of f. Patient has no new pedal complaints at this time. Objective - Vital Signs/Intake and Output Vital Signs (last 24 hours): Temp Pulse Resp BP Pulse Ox 97.4 F L 82 18 136/64 95 06/06/17 10:00 06/06/17 13:30 06/06/17 10:00 06/06/17 10:00 06/06/17 13:30 - Medications Medications: Current Medications Acetylcysteine (Acetylcysteine 20%) 3 ml PO Q12 DORIS Stop: 06/09/17 22:01 Amlodipine Besylate (Norvasc) 10 mg PO DAILY DORIS PRN Reason: Protocol Last Admin: 06/06/17 09:56 Dose: 10 mg Aspirin (Ecotrin) 81 mg PO 0800 DORIS PRN Reason: Protocol Last Admin: 06/06/17 08:06 Dose: 81 mg Atorvastatin Calcium (Lipitor) 10 mg PO DIN DORIS PRN Reason: Protocol Last Admin: 06/05/17 16:45 Dose: 10 mg Brimonidine Tartrate (Alphagan P 0.15% Opht) 1 drop OD TID DORIS PRN Reason: Protocol Last Admin: 06/06/17 14:37 Dose: 1 drop Carvedilol (Coreg) 3.125 mg PO 0800,1800 DORIS PRN Reason: Protocol Last Admin: 06/06/17 08:06 Dose: 3.125 mg Digoxin (Digoxin) 0.125 mg PO 1400 DORIS PRN Reason: Protocol Last Admin: 06/06/17 14:34 Dose: 0.125 mg Dorzolamide/Timolol (Cosopt 2%-0.5% Opht) 1 drop OD BID DORIS PRN Reason: Protocol Last Admin: 06/06/17 09:53 Dose: 1 drop Enoxaparin Sodium (Lovenox) 40 mg SC 0630 DORIS PRN Reason: Protocol Last Admin: 06/06/17 06:45 Dose: 40 mg Ferrous Sulfate (Feosol) 324 mg PO TID DORIS PRN Reason: Protocol Sodium Chloride (Sodium Chloride 0.45%) 1,000 mls @ 75 mls/hr IV .[id number] DORIS Stop: 06/09/17 12:00 Last Admin: 06/06/17 14:37 Dose: 75 mls/hr Sodium Chloride (Sodium Chloride 0.45%) 1,000 mls @ 10 mls/hr IV .Q24H DORIS PRN Reason: Protocol Last Admin: 06/05/17 17:53 Dose: 10 mls/hr Cefepime HCl (Maxipime 1gm) 1 gm in 100 mls @ 100 mls/hr IVPB 0600 DORIS PRN Reason: Protocol Stop: 06/11/17 06:59 Last Admin: 06/06/17 05:18 Dose: 100 mls/hr Vancomycin HCl (Vancomycin 1gm) 1 gm in 250 mls @ 167 mls/hr IVPB 0600 DORIS PRN Reason: Protocol Stop: 06/11/17 07:30 Last Admin: 06/06/17 05:19 Dose: 167 mls/hr Insulin Human Regular (Humulin R Med) 0 units SC ACHS DORIS PRN Reason: Protocol Last Admin: 06/06/17 12:01 Dose: 1 units Oxychlorosene Sodium (Clorpactin Wcs-90) 2 gm TOP 1000,2200 DORIS PRN Reason: Protocol Last Admin: 06/06/17 09:57 Dose: 2 gm Pantoprazole Sodium (Protonix Ec Tab) 40 mg PO 0600 DORIS PRN Reason: Protocol Last Admin: 06/06/17 05:21 Dose: 40 mg - Labs Labs: 06/06/17 05:20 06/06/17 05:20 - Constitutional Appears: Well, Non-toxic, No Acute Distress - Extremities Exam Additional comments: Vasc: Pedal pulses nonpalpable, absent pedal hair growth noted bilaterally, CFT delayed to all digits, edema noted to LE R>L Ortho: Pain with palpation to the right foot Derm: ulceration full thickness noted to the plantar aspect of 5th right MPJ, measuring approximately 2 cm x 1.8 cm x .3 cm. Wound base is 90% fibrotic and 10 % necrotic with decrease in periwound maceration. 5th metatarsal capsule is exposed. No malodor. No purulence. No abscess or fluctanance noted. No edema, erythema, no ascending cellulitis noted. Skin is thin, shiny, and discolored bilaterally Neuro: gross and protective sensation diminished - Neurological Exam Neurological Exam: Alert, Awake, Oriented x3 - Psychiatric Exam Psychiatric exam: Normal Affect, Normal Mood Assessment and Plan - Assessment and Plan (Free Text) Assessment: 77 y.o male with right foot lateral plantar full thickness ulceration secondary to DM, neuropathy, and pressure Plan: Patient examined and evaluated Discussed plan in detail with attending Dr. Marie Labs, chart, vitals reviewed- afebrile, absent leukocytosis Wound culture results-coagulase negative staphylococcus Bone scan taken and shows acute osseous process involving distal aspect of the 5th metatarsal/proximal phalanx right 5th digit Abx per ID for treatment of OM Cleansed ulceration with saline solution Using a scissors and a pickup from suture remoal kit, hypekeratotic and nonviable tissue was debrided from wound base to the level of the subcutaneous to reduce unhealthy tissue from wound. Wound was cleansed with saline and dressed with optifoam Recommend to stop soaking foot in Clorpactin as it interfere with wound healing at this stage F/U vascular consult and recommendations Will order forefoot offloading device Patient may WBAT in forefoot offloading shoe Podiatry will continue to follow patient while in house <Dorcas Marie - Last Filed: 06/12/17 14:48> Objective - Vital Signs/Intake and Output Vital Signs (last 24 hours): Temp Pulse Resp BP Pulse Ox 98.1 F 77 18 139/61 93 L 06/10/17 06:00 06/10/17 08:28 06/10/17 06:00 06/10/17 09:44 06/10/17 06:00 - Labs Labs: 06/10/17 06:47 06/10/17 06:47 PT 13.6 SECONDS (9.4-12.5) H 06/07/17 06:45 INR 1.18 (0.93-1.08) H 06/07/17 06:45 APTT 34.0 Seconds (25.1-36.5) 06/07/17 06:45 Attending/Attestation - Attestation I have personally seen and examined this patient.: Yes I have fully participated in the care of the patient.: Yes I have reviewed all pertinent clinical information, including history, physical exam and plan: Yes
--- NOTE | 2017-06-06 17:33 | CP.PCM.PN ---
Subjective - Date & Time of Evaluation Date of Evaluation: 06/06/17 Time of Evaluation: 15:00 - Subjective Subjective: Infectious Disease Follow Up: June 06, 2017 77 yo male with history of left foot osteomyelitis treated with IV antibiotics. The right foot has ulceration that was noted in wound care in March 2017. Multiple cultures from wound care center of the right foot ulcer showing growth of MSSA, Enterobacter, and Klebsiella over the past year. Last cultuers taken showed MSSA. The patient denies fevers or chills. No other complaints. He was placed in a cast while receiving PO antibiotics of Augmentin for 28 days. When cast was removed, the patient still had purulent drainage from ulceration in the base of the 5th toe lateral metaphalangeal area. Bone Scan done. Official reading positive for osteomyelitis of the 5th metatarsal on the right foot. At this time no further surgery by Podiatry. Spoke with Dr. Marie. Needs 6 weeks of IV antibiotics. Noted patient is soaking the foot as per PMD orders. Noted WBC going towards leukopenia. Objective - Vital Signs/Intake and Output Vital Signs (last 24 hours): Temp Pulse Resp BP Pulse Ox 97.4 F L 82 18 136/64 95 06/06/17 10:00 06/06/17 13:30 06/06/17 10:00 06/06/17 10:00 06/06/17 13:30 - Medications Medications: Current Medications Acetylcysteine (Acetylcysteine 20%) 3 ml PO Q12 DORIS Stop: 06/09/17 22:01 Amlodipine Besylate (Norvasc) 10 mg PO DAILY DORIS PRN Reason: Protocol Last Admin: 06/06/17 09:56 Dose: 10 mg Aspirin (Ecotrin) 81 mg PO 0800 DORIS PRN Reason: Protocol Last Admin: 06/06/17 08:06 Dose: 81 mg Atorvastatin Calcium (Lipitor) 10 mg PO DIN DORIS PRN Reason: Protocol Last Admin: 06/05/17 16:45 Dose: 10 mg Brimonidine Tartrate (Alphagan P 0.15% Opht) 1 drop OD TID DORIS PRN Reason: Protocol Last Admin: 06/06/17 14:37 Dose: 1 drop Carvedilol (Coreg) 3.125 mg PO 0800,1800 DORIS PRN Reason: Protocol Last Admin: 06/06/17 08:06 Dose: 3.125 mg Digoxin (Digoxin) 0.125 mg PO 1400 DORIS PRN Reason: Protocol Last Admin: 06/06/17 14:34 Dose: 0.125 mg Dorzolamide/Timolol (Cosopt 2%-0.5% Opht) 1 drop OD BID DORIS PRN Reason: Protocol Last Admin: 06/06/17 09:53 Dose: 1 drop Enoxaparin Sodium (Lovenox) 40 mg SC 0630 DORIS PRN Reason: Protocol Last Admin: 06/06/17 06:45 Dose: 40 mg Ferrous Sulfate (Feosol) 324 mg PO TID DORIS PRN Reason: Protocol Sodium Chloride (Sodium Chloride 0.45%) 1,000 mls @ 75 mls/hr IV .[id number] [facility] Stop: 06/09/17 12:00 Last Admin: 06/06/17 14:37 Dose: 75 mls/hr Sodium Chloride (Sodium Chloride 0.45%) 1,000 mls @ 10 mls/hr IV .Q24H DORIS PRN Reason: Protocol Last Admin: 06/05/17 17:53 Dose: 10 mls/hr Cefepime HCl (Maxipime 1gm) 1 gm in 100 mls @ 100 mls/hr IVPB 0600 DORIS PRN Reason: Protocol Stop: 06/11/17 06:59 Last Admin: 06/06/17 05:18 Dose: 100 mls/hr Vancomycin HCl (Vancomycin 1gm) 1 gm in 250 mls @ 167 mls/hr IVPB 0600 DORIS PRN Reason: Protocol Stop: 06/11/17 07:30 Last Admin: 06/06/17 05:19 Dose: 167 mls/hr Insulin Human Regular (Humulin R Med) 0 units SC ACHS DORIS PRN Reason: Protocol Last Admin: 06/06/17 12:01 Dose: 1 units Oxychlorosene Sodium (Clorpactin Wcs-90) 2 gm TOP 1000,2200 DORIS PRN Reason: Protocol Last Admin: 06/06/17 09:57 Dose: 2 gm Pantoprazole Sodium (Protonix Ec Tab) 40 mg PO 0600 DORIS PRN Reason: Protocol Last Admin: 06/06/17 05:21 Dose: 40 mg - Labs Labs: 06/06/17 05:20 06/06/17 05:20 - Constitutional Appears: Non-toxic, No Acute Distress, Chronically Ill - Head Exam Head Exam: ATRAUMATIC, NORMOCEPHALIC - Eye Exam Eye Exam: EOMI, PERRL Pupil Exam: NORMAL ACCOMODATION, PERRL - ENT Exam ENT Exam: Mucous Membranes Moist, Normal External Ear Exam, TM's Normal Bilaterally - Neck Exam Neck Exam: Full ROM, Normal Inspection - Respiratory Exam Respiratory Exam: Clear to Ausculation Bilateral, NORMAL BREATHING PATTERN. absent: Rales, Rhonchi, Wheezes - Cardiovascular Exam Cardiovascular Exam: REGULAR RHYTHM, RRR, +S1, +S2 - GI/Abdominal Exam GI & Abdominal Exam: Soft, Normal Bowel Sounds. absent: Distended, Tenderness - Extremities Exam Extremities Exam: Full ROM Additional comments: Peripheral neuropathy of bilateral lower extremities. Edema of the right foot, ankle, lower leg. right foot ulceration near base of 5th toe lateral metaphalangeal area stage 2-3 with possible tract As per podiatry: ulceration full thickness noted to the plantar aspect of 5th right MPJ, measuring approximately 2 cm x 1.8 cm x .3 cm. Wound base is 90% fibrotic and 10 % necrotic with decrease in periwound maceration. No malodor. No purulence. No abscess or fluctanance noted. No edema, erythema, no ascending cellulitis noted. Skin is thin, shiny, and discolored bilaterally - Neurological Exam Neurological Exam: Alert, Awake, CN II-XII Intact, Oriented x3 - Psychiatric Exam Psychiatric exam: Normal Affect, Normal Mood - Skin Skin Exam: Intact, Normal Color Additional comments: except for the right foot as listed above. The right foot also appears macerated today. Assessment and Plan - Assessment and Plan (Free Text) Assessment: 77 yo male with history of DM, HTN, CAD, and Chronic CHF and possible PVD with non healing right lateral foot ulceration that is Stage III with potential sinus tract with tracking to bone. Cannot rule out osteomyeltis. Cultures of the foot in the last 2 months had shown MSSA. Was on Augmentin for 28 day course doses at 875mg q6hrs. At this time, Continue with Cefepime and Vancomycin to cover for gram negative including Pseudomonas and potential MRSA. The patient should be worked up for osteomyelitis. Patient cannot get MRI due to pacemaker. Bone scan showing increased uptake consistent with osteomyelitis in the right foot 5th metatarsal. Blood cultures negative to date. Wound culture with coagulase negative staph. Continue broad spectrum coverage. Supportive care. ESR up to 73 now. Consider 6 weeks cefepime and IV Vancomycin. Check levels of Vancomycin. Recheck levels in the morning. May need to decrease Vancomycin dosing. Noted WBC have been trending very low. Thank you for allowing me to participate in the care of the patient, we will follow with you.
[2017-06-07] MEDS: Oxychlorosene Topical 2 gm Packet TOP SCH ×4 (01:41→21:41)
[2017-06-07] MEDS: Enoxaparin 40 mg Syringe SC SCH (05:44)
[2017-06-07] MEDS: Cefepime 1gm in NS 100ml 1 GM/100 ML BAG IVPB SCH (05:44)
[2017-06-07] MEDS: Sodium Chloride 0.45% 1,000 ML IV SCH ×2 (05:45→14:07)
[2017-06-07] MEDS: Pantoprazole 40 mg EC Tab PO SCH (05:45)
[2017-06-07] MEDS: Insulin Reg-MEDIUM-Coverage SC SCH ×4 (06:38→23:08)
[2017-06-07 07:26] LABS: HEMOGLOBIN 9.1 g/dL (14.0-18.0); MEAN CELL VOLUME 86.1 fl (80.0-105.0); MEAN CORPUSCULAR HEMOGLOBIN 27.6 pg (25.0-35.0); RBC 3.3 10^6/uL (3.5-6.1); RED CELL DISTRIBUTION WIDTH 15.6 % (11.5-14.5)
--- NOTE | 2017-06-07 07:35 | CP.PCM.PN ---
Subjective - Date & Time of Evaluation Date of Evaluation: 06/07/17 Time of Evaluation: 06:55 - Subjective Subjective: Seen and examined by Dr. Tran Reason for consultation and follow up: history of coronary artery disease post coronary bypass with mitral valve repair, PPM insertion, renal dysfunction, peripheral artery disease with right foot ulcer, history of congestive heart failure Subjective: lying in bed, denies shortness of breath, denies chest pain, comfortable Objective - Vital Signs/Intake and Output Vital Signs (last 24 hours): Temp Pulse Resp BP Pulse Ox 98 F 76 16 137/61 94 L 06/06/17 17:33 06/06/17 17:33 06/06/17 17:33 06/06/17 17:33 06/06/17 17:33 Intake and Output: 06/07/17 06/07/17 06:59 18:59 Intake Total 360 Output Total 450 Balance -90 - Medications Medications: Current Medications Acetylcysteine (Acetylcysteine 20%) 3 ml PO Q12 DORIS Stop: 06/09/17 22:01 Amlodipine Besylate (Norvasc) 10 mg PO DAILY DORIS PRN Reason: Protocol Last Admin: 06/06/17 09:56 Dose: 10 mg Aspirin (Ecotrin) 81 mg PO 0800 DORIS PRN Reason: Protocol Last Admin: 06/06/17 08:06 Dose: 81 mg Atorvastatin Calcium (Lipitor) 10 mg PO DIN DORIS PRN Reason: Protocol Last Admin: 06/06/17 18:25 Dose: 10 mg Brimonidine Tartrate (Alphagan P 0.15% Opht) 1 drop OD TID DORIS PRN Reason: Protocol Last Admin: 06/06/17 18:24 Dose: 1 drop Carvedilol (Coreg) 3.125 mg PO 0800,1800 DORIS PRN Reason: Protocol Last Admin: 06/06/17 18:24 Dose: 3.125 mg Digoxin (Digoxin) 0.125 mg PO 1400 DORIS PRN Reason: Protocol Last Admin: 06/06/17 14:34 Dose: 0.125 mg Dorzolamide/Timolol (Cosopt 2%-0.5% Opht) 1 drop OD BID DORIS PRN Reason: Protocol Last Admin: 06/06/17 18:24 Dose: 1 drop Enoxaparin Sodium (Lovenox) 40 mg SC 0630 DORIS PRN Reason: Protocol Last Admin: 06/07/17 05:44 Dose: 40 mg Ferrous Sulfate (Feosol) 324 mg PO TID DORIS PRN Reason: Protocol Last Admin: 06/06/17 18:25 Dose: 324 mg Sodium Chloride (Sodium Chloride 0.45%) 1,000 mls @ 75 mls/hr IV .[id number] DORIS Stop: 06/09/17 12:00 Last Admin: 06/07/17 05:45 Dose: 75 mls/hr Sodium Chloride (Sodium Chloride 0.45%) 1,000 mls @ 10 mls/hr IV .Q24H DORIS PRN Reason: Protocol Last Admin: 06/06/17 18:25 Dose: Not Given Cefepime HCl (Maxipime 1gm) 1 gm in 100 mls @ 100 mls/hr IVPB 0600 DORIS PRN Reason: Protocol Stop: 06/11/17 06:59 Last Admin: 06/07/17 05:44 Dose: 100 mls/hr Vancomycin HCl (Vancomycin 1gm) 1 gm in 250 mls @ 167 mls/hr IVPB 0600 DORIS PRN Reason: Protocol Stop: 06/11/17 07:30 Last Admin: 06/06/17 05:19 Dose: 167 mls/hr Insulin Human Regular (Humulin R Med) 0 units SC ACHS DORIS PRN Reason: Protocol Last Admin: 06/07/17 06:38 Dose: 1 units Oxychlorosene Sodium (Clorpactin Wcs-90) 2 gm TOP 1000,2200 DORIS PRN Reason: Protocol Last Admin: 06/07/17 01:41 Dose: Not Given Pantoprazole Sodium (Protonix Ec Tab) 40 mg PO 0600 DORIS PRN Reason: Protocol Last Admin: 06/07/17 05:45 Dose: 40 mg - Labs Labs: 06/07/17 06:45 06/06/17 05:20 - Constitutional Appears: No Acute Distress - Head Exam Head Exam: NORMAL INSPECTION - Eye Exam Eye Exam: Normal appearance Pupil Exam: NORMAL ACCOMODATION - ENT Exam ENT Exam: Mucous Membranes Moist, Normal Exam - Neck Exam Neck Exam: Full ROM - Respiratory Exam Respiratory Exam: Clear to Ausculation Bilateral, NORMAL BREATHING PATTERN - Cardiovascular Exam Cardiovascular Exam: REGULAR RHYTHM, +S1, +S2 - GI/Abdominal Exam GI & Abdominal Exam: Soft, Normal Bowel Sounds - Extremities Exam Extremities Exam: Normal Capillary Refill Additional comments: right foot ulcer - Neurological Exam Neurological Exam: Alert, Awake, Oriented x3 - Psychiatric Exam Psychiatric exam: Normal Affect, Normal Mood - Skin Skin Exam: Dry, Normal Color, Warm Assessment and Plan - Assessment and Plan (Free Text) Assessment: Impression: right foot osteomyelitis, on antibiotic coverage, history of coronary artery disease post coronary bypass with mitral valve repair, PPM insertion, renal dysfunction, peripheral artery disease with right foot ulcer, history of congestive heart failure,insulin dependent diabetes Plan: Stable cardiac standpoint Continue current medications-ASA 81 mg,Lipitor 10 mg,Coreg 3.125 mg,Digoxin 0.125mg and lovenox 40 mg Stable BP and heart rate Urine output adequate Potassium level WNL Will follow up Plan and treatment discussed with Dr. Willson
[2017-06-07 07:37] LABS: INR 1.18 (0.93-1.08); PROTHROMBIN TIME 13.6 SECONDS (9.4-12.5)
[2017-06-07 07:52] LABS: ALB/GLOB RATIO 0.9 (1.1-1.8); ALBUMIN 3.3 g/dL (3.0-4.8); CALCIUM 9.1 mg/dL (8.4-10.5)
[2017-06-07] MEDS: Brimonidine 0.15% 50 DROP/5 ML BOTTLE OD SCH ×3 (10:09→17:38)
[2017-06-07] MEDS: Dorzolamide 2%/Timolol 0.5% 100 DROP/10 ML BOTTLE OD SCH ×2 (10:11→17:39)
[2017-06-07] MEDS: Acetylcysteine 20% Inhal Soln (4ml) PO SCH ×2 (12:17→23:43)
[2017-06-07] MEDS: Digoxin 125 mcg (0.125 mg) Tab PO SCH (14:07)
--- NOTE | 2017-06-07 14:29 | PN ---
DATE: SUBJECTIVE: The patient is currently seen receiving IV fluid hydration along with IV antibiotic therapy. The patient is also receiving Mucomyst in preparation for his lower extremity angiogram tomorrow. The patient has a poorly healing right foot ulcer with likely osteomyelitis. MEDICATIONS: Medication list reviewed. The patient is currently on eyedrops, Coreg, digoxin, Ecotrin, Feosol, insulin, Lipitor, Lovenox, Maxipime, Norvasc, Protonix, half-normal saline 75 mL an hour and Mucomyst. Vancomycin. OBJECTIVE: VITAL SIGNS: Blood pressure 141/63, temperature 97.6, respiratory rate 20 with a pulse of 69. HEENT: Exam shows him to be normocephalic, atraumatic. Conjunctivae remain pale. Sclerae are nonicteric. NECK: Supple. No neck vein distention. CHEST: Clear to auscultation and percussion. No rales, rhonchi or wheezing. CARDIOVASCULAR: Shows a regular rate and rhythm without audible murmurs, rubs or gallops. ABDOMEN: Soft. Bowel sounds normal. No rebound, guarding or masses. EXTREMITIES: Show dressing over his right foot with trace to 1+ edema of his right lower extremity. Diminished lower extremity pulses bilaterally. LABORATORY DATA AND IMAGING: CBC today shows a white blood cell count of 4.0, hemoglobin 9.1 with a platelet count of 128,000. Chemistry showed normal electrolytes. BUN 36 with creatinine of 1.7. Glucose is 165. Calcium 9.1, phosphorus 3.2, magnesium 2.2. Albumin is 3.3. Vancomycin trough level was 18.2. The patient's bone scan done on acute care was positive for increased uptake consistent with osteomyelitis of the right foot. Microbiology was positive for coag-negative staph. ASSESSMENT: 1. Chronic kidney disease stage 3. Creatinine appears to be stable in the 1.7 range. This is in the setting of known diabetic nephropathy. 2. History of [id number] diabetes mellitus, currently on insulin. 3. History of diabetic retinopathy, diabetic neuropathy and diabetic nephropathy. 4. Past history of type IV renal tubular acidosis. Potassium levels are presently normal. The patient will avoid angiotensin-converting enzyme inhibitors and angiotensin receptor blockers. 5. History of an atrophic left kidney. 6. History of anemia, in part secondary to chronic kidney disease. The patient continues on Aranesp and iron. His last dose of Aranesp 60 mcg was on 06/05/2017. His next dose will be toward the end of this week. 7. Right foot ulcer, nonhealing with a metatarsophalangeal joint possible osteomyelitis. The patient will continue a prolonged course of IV antibiotic therapy. 8. History of secondary hyperparathyroidism. Calcium, phosphorus levels are normal. The patient is presently not on binder therapy. 9. History of atherosclerotic heart disease, status post coronary artery bypass graft, five vessel, stable. 10. History of hyperlipidemia, stable on statin therapy. 11. Elevated vancomycin trough level. Creatinine remained stable. I will let Infectious Disease address this to see whether or not they would like to make any dose reductions in his vancomycin. PLAN: 1. Continue IV fluid hydration in preparation for tomorrow's angiogram. The patient should also be on Mucomyst therapy. 2. Continue Aranesp and iron. The patient remains on Feosol, increase to three times a day. Aranesp will be dosed toward the end of the week. 3. Continue renal diet. Phosphorus levels are acceptable. No binder therapy at this point in time. 4. Need to monitor labs closely in the 24-48 hours post angiogram. Meek Peterson MD
--- NOTE | 2017-06-07 17:05 | CP.PCM.PN ---
<Erick Porras - Last Filed: 06/07/17 17:02> Subjective - Date & Time of Evaluation Date of Evaluation: 06/07/17 Time of Evaluation: 17:02 - Subjective Subjective: Podiatry Progress Note- Dr. Marie/Dr. Bahena 77 y.o old seen and evaluated at bedside for right foot lateral ulceration. Patient is seen resting comfortably in bed, in NAD, and AA0x3. Patient denies acute overnight events. Patient denies n/v/sob/cp/chills of f. Patient has no new pedal complaints at this time. Objective - Vital Signs/Intake and Output Vital Signs (last 24 hours): Temp Pulse Resp BP Pulse Ox 97.6 F 69 20 141/63 100 06/07/17 10:11 06/07/17 10:11 06/07/17 10:11 06/07/17 10:11 06/07/17 10:11 Intake and Output: 06/07/17 06/07/17 06:59 18:59 Intake Total 360 Output Total 450 Balance -90 - Medications Medications: Current Medications Acetylcysteine (Acetylcysteine 20%) 3 ml PO Q12 DORIS Stop: 06/09/17 22:01 Last Admin: 06/07/17 12:17 Dose: 3 ml Amlodipine Besylate (Norvasc) 10 mg PO DAILY DORIS PRN Reason: Protocol Last Admin: 06/07/17 10:11 Dose: 10 mg Aspirin (Ecotrin) 81 mg PO 0800 DORIS PRN Reason: Protocol Last Admin: 06/07/17 07:56 Dose: 81 mg Atorvastatin Calcium (Lipitor) 10 mg PO DIN DORIS PRN Reason: Protocol Last Admin: 06/06/17 18:25 Dose: 10 mg Brimonidine Tartrate (Alphagan P 0.15% Opht) 1 drop OD TID DORIS PRN Reason: Protocol Last Admin: 06/07/17 14:06 Dose: 1 drop Carvedilol (Coreg) 3.125 mg PO 0800,1800 DORIS PRN Reason: Protocol Last Admin: 06/07/17 07:56 Dose: 3.125 mg Digoxin (Digoxin) 0.125 mg PO 1400 DORIS PRN Reason: Protocol Last Admin: 06/07/17 14:07 Dose: 0.125 mg Dorzolamide/Timolol (Cosopt 2%-0.5% Opht) 1 drop OD BID DORIS PRN Reason: Protocol Last Admin: 06/07/17 10:11 Dose: 1 drop Enoxaparin Sodium (Lovenox) 40 mg SC 0630 DORIS PRN Reason: Protocol Last Admin: 06/07/17 05:44 Dose: 40 mg Ferrous Sulfate (Feosol) 324 mg PO TID DORIS PRN Reason: Protocol Last Admin: 06/07/17 14:07 Dose: 324 mg Sodium Chloride (Sodium Chloride 0.45%) 1,000 mls @ 75 mls/hr IV .[id number] [facility] Stop: 06/09/17 12:00 Last Admin: 06/07/17 14:07 Dose: 75 mls/hr Cefepime HCl (Maxipime 1gm) 1 gm in 100 mls @ 100 mls/hr IVPB 0600 DORIS PRN Reason: Protocol Stop: 06/11/17 06:59 Last Admin: 06/07/17 05:44 Dose: 100 mls/hr Vancomycin HCl (Vancomycin 1gm) 1 gm in 250 mls @ 167 mls/hr IVPB 0600 DORIS PRN Reason: Protocol Stop: 06/11/17 07:30 Last Admin: 06/06/17 05:19 Dose: 167 mls/hr Insulin Human Regular (Humulin R Med) 0 units SC ACHS DORIS PRN Reason: Protocol Last Admin: 06/07/17 12:19 Dose: 1 units Oxychlorosene Sodium (Clorpactin Wcs-90) 2 gm TOP 1000,2200 DORIS PRN Reason: Protocol Last Admin: 06/07/17 14:08 Dose: 2 gm Pantoprazole Sodium (Protonix Ec Tab) 40 mg PO 0600 DORIS PRN Reason: Protocol Last Admin: 06/07/17 05:45 Dose: 40 mg - Labs Labs: 06/07/17 06:45 06/07/17 06:45 PT 13.6 SECONDS (9.4-12.5) H 06/07/17 06:45 INR 1.18 (0.93-1.08) H 06/07/17 06:45 APTT 34.0 Seconds (25.1-36.5) 06/07/17 06:45 - Constitutional Appears: Well, Non-toxic, No Acute Distress - Extremities Exam Extremities Exam: absent: Calf Tenderness Additional comments: Vasc: Pedal pulses nonpalpable, absent pedal hair growth noted bilaterally, CFT delayed to all digits, edema noted to LE R>L Ortho: Pain with palpation to the right foot Derm: ulceration full thickness noted to the plantar aspect of 5th right MPJ, measuring approximately 2 cm x 1.8 cm x .3 cm. Wound base is 90% fibrotic and 10 % necrotic with decrease in periwound maceration. 5th metatarsal capsule is exposed. No malodor. No purulence. No abscess or fluctanance noted. No edema, erythema, no ascending cellulitis noted. Skin is thin, shiny, and discolored bilaterally - Neurological Exam Neurological Exam: Alert, Awake, Oriented x3 - Psychiatric Exam Psychiatric exam: Normal Affect, Normal Mood Assessment and Plan - Assessment and Plan (Free Text) Assessment: 77 y.o male with right foot lateral plantar full thickness ulceration secondary to DM, neuropathy, and pressure with OM Plan: Patient examined and evaluated Discussed plan in detail with attending Dr. Bahena Labs, chart, vitals reviewed- afebrile, absent leukocytosis Wound culture results-coagulase negative staphylococcus Bone scan taken and shows acute osseous process involving distal aspect of the 5th metatarsal/proximal phalanx right 5th digit Abx per ID for treatment of OM Cleansed ulceration with saline solution and dressed with optifoam Recommend to stop soaking foot in Clorpactin as it interfere with wound healing at this stage F/U vascular consult and recommendations ORdered orefoot offloading device Patient may WBAT in forefoot offloading shoe Podiatry will continue to follow patient while in house <Marlon Bahena - Last Filed: 06/08/17 15:24> Objective - Vital Signs/Intake and Output Vital Signs (last 24 hours): Temp Pulse Resp BP Pulse Ox 98.4 F 69 69 H 147/63 94 L 06/08/17 06:00 06/08/17 06:45 06/08/17 06:00 06/08/17 06:46 06/07/17 18:52 - Medications Medications: Current Medications Acetylcysteine (Acetylcysteine 20%) 3 ml PO Q12 DORIS Stop: 06/09/17 22:01 Last Admin: 06/08/17 10:00 Dose: Not Given Amlodipine Besylate (Norvasc) 10 mg PO DAILY DORIS PRN Reason: Protocol Last Admin: 06/08/17 11:46 Dose: Not Given Aspirin (Ecotrin) 81 mg PO 0800 DORIS PRN Reason: Protocol Last Admin: 06/08/17 10:00 Dose: Not Given Atorvastatin Calcium (Lipitor) 10 mg PO DIN DORIS PRN Reason: Protocol Last Admin: 06/07/17 17:38 Dose: 10 mg Brimonidine Tartrate (Alphagan P 0.15% Opht) 1 drop OD TID DORIS PRN Reason: Protocol Last Admin: 06/08/17 10:00 Dose: Not Given Carvedilol (Coreg) 3.125 mg PO 0800,1800 ODRIS PRN Reason: Protocol Last Admin: 06/08/17 08:34 Dose: Not Given Digoxin (Digoxin) 0.125 mg PO 1400 DORIS PRN Reason: Protocol Last Admin: 06/07/17 14:07 Dose: 0.125 mg Dorzolamide/Timolol (Cosopt 2%-0.5% Opht) 1 drop OD BID DORIS PRN Reason: Protocol Last Admin: 06/08/17 10:00 Dose: Not Given Enoxaparin Sodium (Lovenox) 40 mg SC 0630 DORIS PRN Reason: Protocol Last Admin: 06/08/17 06:47 Dose: Not Given Ferrous Sulfate (Feosol) 324 mg PO TID DORIS PRN Reason: Protocol Last Admin: 06/08/17 10:00 Dose: Not Given Sodium Chloride (Sodium Chloride 0.45%) 1,000 mls @ 75 mls/hr IV .[id number] [facility] Stop: 06/09/17 12:00 Last Admin: 06/07/17 14:07 Dose: 75 mls/hr Cefepime HCl (Maxipime 1gm) 1 gm in 100 mls @ 100 mls/hr IVPB 0600 DORIS PRN Reason: Protocol Stop: 06/11/17 06:59 Last Admin: 06/08/17 05:01 Dose: 100 mls/hr Vancomycin HCl (Vancomycin 1gm) 1 gm in 250 mls @ 167 mls/hr IVPB 0600 DORIS PRN Reason: Protocol Stop: 06/11/17 07:30 Last Admin: 06/08/17 05:05 Dose: 167 mls/hr Insulin Human Regular (Humulin R Med) 0 units SC ACHS DORIS PRN Reason: Protocol Last Admin: 06/08/17 11:49 Dose: Not Given Oxychlorosene Sodium (Clorpactin Wcs-90) 2 gm TOP 1000,2200 DORIS PRN Reason: Protocol Last Admin: 06/08/17 10:00 Dose: Not Given Pantoprazole Sodium (Protonix Ec Tab) 40 mg PO 0600 DORIS PRN Reason: Protocol Last Admin: 06/08/17 05:04 Dose: 40 mg - Labs Labs: 06/08/17 06:30 06/08/17 06:30 PT 13.6 SECONDS (9.4-12.5) H 06/07/17 06:45 INR 1.18 (0.93-1.08) H 06/07/17 06:45 APTT 34.0 Seconds (25.1-36.5) 06/07/17 06:45 Attending/Attestation - Attestation I have personally seen and examined this patient.: Yes I have fully participated in the care of the patient.: Yes I have reviewed all pertinent clinical information, including history, physical exam and plan: Yes
--- NOTE | 2017-06-07 19:20 | CP.PCM.PN ---
Subjective - Date & Time of Evaluation Date of Evaluation: 06/07/17 Time of Evaluation: 17:00 - Subjective Subjective: Infectious Disease Follow Up: June 07, 2017 77 yo male with history of left foot osteomyelitis treated with IV antibiotics. The right foot has ulceration that was noted in wound care in March 2017. Multiple cultures from wound care center of the right foot ulcer showing growth of MSSA, Enterobacter, and Klebsiella over the past year. Last cultuers taken showed MSSA. The patient denies fevers or chills. No other complaints. He was placed in a cast while receiving PO antibiotics of Augmentin for 28 days. When cast was removed, the patient still had purulent drainage from ulceration in the base of the 5th toe lateral metaphalangeal area. Bone Scan done. Official reading positive for osteomyelitis of the 5th metatarsal on the right foot. At this time no further surgery by Podiatry. Spoke with Dr. Marie. Needs 6 weeks of IV antibiotics. Noted patient is soaking the foot as per PMD orders. Noted WBC going towards leukopenia... currently at 4.0 today. Objective - Vital Signs/Intake and Output Vital Signs (last 24 hours): Temp Pulse Resp BP Pulse Ox 98.2 F 70 20 134/58 L 94 L 06/07/17 18:52 06/07/17 18:52 06/07/17 18:52 06/07/17 18:52 06/07/17 18:52 - Medications Medications: Current Medications Acetylcysteine (Acetylcysteine 20%) 3 ml PO Q12 [facility] Stop: 06/09/17 22:01 Last Admin: 06/07/17 12:17 Dose: 3 ml Amlodipine Besylate (Norvasc) 10 mg PO DAILY [facility] PRN Reason: Protocol Last Admin: 06/07/17 10:11 Dose: 10 mg Aspirin (Ecotrin) 81 mg PO 0800 [facility] PRN Reason: Protocol Last Admin: 06/07/17 07:56 Dose: 81 mg Atorvastatin Calcium (Lipitor) 10 mg PO DIN [facility] PRN Reason: Protocol Last Admin: 06/07/17 17:38 Dose: 10 mg Brimonidine Tartrate (Alphagan P 0.15% Opht) 1 drop OD TID [facility] PRN Reason: Protocol Last Admin: 06/07/17 17:38 Dose: 1 drop Carvedilol (Coreg) 3.125 mg PO 0800,1800 [facility] PRN Reason: Protocol Last Admin: 06/07/17 17:38 Dose: 3.125 mg Digoxin (Digoxin) 0.125 mg PO 1400 [facility] PRN Reason: Protocol Last Admin: 06/07/17 14:07 Dose: 0.125 mg Dorzolamide/Timolol (Cosopt 2%-0.5% Opht) 1 drop OD BID [facility] PRN Reason: Protocol Last Admin: 06/07/17 17:39 Dose: 1 drop Enoxaparin Sodium (Lovenox) 40 mg SC 0630 [facility] PRN Reason: Protocol Last Admin: 06/07/17 05:44 Dose: 40 mg Ferrous Sulfate (Feosol) 324 mg PO TID [facility] PRN Reason: Protocol Last Admin: 06/07/17 17:39 Dose: 324 mg Sodium Chloride (Sodium Chloride 0.45%) 1,000 mls @ 75 mls/hr IV .[id number] [facility] Stop: 06/09/17 12:00 Last Admin: 06/07/17 14:07 Dose: 75 mls/hr Cefepime HCl (Maxipime 1gm) 1 gm in 100 mls @ 100 mls/hr IVPB 0600 [facility] PRN Reason: Protocol Stop: 06/11/17 06:59 Last Admin: 06/07/17 05:44 Dose: 100 mls/hr Vancomycin HCl (Vancomycin 1gm) 1 gm in 250 mls @ 167 mls/hr IVPB 0600 [facility] PRN Reason: Protocol Stop: 06/11/17 07:30 Last Admin: 06/06/17 05:19 Dose: 167 mls/hr Insulin Human Regular (Humulin R Med) 0 units SC ACHS [facility] PRN Reason: Protocol Last Admin: 06/07/17 17:32 Dose: 3 units Oxychlorosene Sodium (Clorpactin Wcs-90) 2 gm TOP 1000,2200 [facility] PRN Reason: Protocol Last Admin: 06/07/17 14:08 Dose: 2 gm Pantoprazole Sodium (Protonix Ec Tab) 40 mg PO 0600 [facility] PRN Reason: Protocol Last Admin: 06/07/17 05:45 Dose: 40 mg - Labs Labs: 06/07/17 06:45 06/07/17 06:45 PT 13.6 SECONDS (9.4-12.5) H 06/07/17 06:45 INR 1.18 (0.93-1.08) H 06/07/17 06:45 APTT 34.0 Seconds (25.1-36.5) 06/07/17 06:45 - Constitutional Appears: Non-toxic, No Acute Distress, Chronically Ill - Head Exam Head Exam: ATRAUMATIC, NORMOCEPHALIC - Eye Exam Eye Exam: EOMI, PERRL Pupil Exam: NORMAL ACCOMODATION, PERRL - ENT Exam ENT Exam: Mucous Membranes Moist, Normal External Ear Exam, TM's Normal Bilaterally - Neck Exam Neck Exam: Full ROM, Normal Inspection - Respiratory Exam Respiratory Exam: Clear to Ausculation Bilateral, NORMAL BREATHING PATTERN. absent: Rales, Rhonchi, Wheezes - Cardiovascular Exam Cardiovascular Exam: REGULAR RHYTHM, RRR, +S1, +S2 - GI/Abdominal Exam GI & Abdominal Exam: Soft, Normal Bowel Sounds. absent: Distended, Tenderness - Extremities Exam Extremities Exam: Full ROM Additional comments: Peripheral neuropathy of bilateral lower extremities. Edema of the right foot, ankle, lower leg. right foot ulceration near base of 5th toe lateral metaphalangeal area stage 2-3 with possible tract As per podiatry: ulceration full thickness noted to the plantar aspect of 5th right MPJ, measuring approximately 2 cm x 1.8 cm x .3 cm. Wound base is 90% fibrotic and 10 % necrotic with decrease in periwound maceration. No malodor. No purulence. No abscess or fluctanance noted. No edema, erythema, no ascending cellulitis noted. Skin is thin, shiny, and discolored bilaterally - Neurological Exam Neurological Exam: Alert, Awake, CN II-XII Intact, Oriented x3 - Psychiatric Exam Psychiatric exam: Normal Affect, Normal Mood - Skin Skin Exam: Intact, Normal Color Additional comments: except for right foot as listed above. Assessment and Plan - Assessment and Plan (Free Text) Assessment: 77 yo male with history of DM, HTN, CAD, and Chronic CHF and possible PVD with non healing right lateral foot ulceration that is Stage III with potential sinus tract with tracking to bone. Cannot rule out osteomyeltis. Cultures of the foot in the last 2 months had shown MSSA. Was on Augmentin for 28 day course doses at 875mg q6hrs. At this time, Continue with Cefepime and Vancomycin to cover for gram negative including Pseudomonas and potential MRSA. The patient should be worked up for osteomyelitis. Patient cannot get MRI due to pacemaker. Bone scan showing increased uptake consistent with osteomyelitis in the right foot 5th metatarsal. Blood cultures negative to date. Wound culture with coagulase negative staph. Continue broad spectrum coverage. Supportive care. ESR up to 73 now. Consider 6 weeks cefepime and IV Vancomycin. Check levels of Vancomycin. Recheck levels in the morning. May need to decrease Vancomycin dosing. Noted WBC have been trending very low. Vancomycin trough of 18.2 today. Recheck ESR. Thank you for allowing me to participate in the care of the patient, we will follow with you.
[2017-06-08] MEDS: Acetylcysteine 20% Inhal Soln (4ml) PO SCH ×2 (00:10→10:00)
[2017-06-08] MEDS: Cefepime 1gm in NS 100ml 1 GM/100 ML BAG IVPB SCH (05:01)
[2017-06-08] MEDS: Pantoprazole 40 mg EC Tab PO SCH (05:04)
[2017-06-08] MEDS: Vancomycin 1gm in NS 250ml 1 GM/250 ML BAG IVPB SCH (05:05)
[2017-06-08] MEDS: Insulin Reg-MEDIUM-Coverage SC SCH ×4 (06:33→21:55)
[2017-06-08] MEDS: Enoxaparin 40 mg Syringe SC SCH (06:47)
[2017-06-08 06:50] LABS: MEAN CELL VOLUME 85.7 fl (80.0-105.0); MEAN CORPUSCULAR HGB CONC 32.6 g/dl (31.0-37.0); MEAN PLATELET VOLUME 9.3 fl (7.0-11.0); RBC 3.22 10^6/uL (3.5-6.1); RED CELL DISTRIBUTION WIDTH 15.7 % (11.5-14.5); WHITE BLOOD COUNT 4.2 10^3/ul (4.5-11.0)
[2017-06-08 07:19] LABS: ALB/GLOB RATIO 0.9 (1.1-1.8); ALBUMIN 3.3 g/dL (3.0-4.8); CALCIUM 9.1 mg/dL (8.4-10.5)
[2017-06-08] MEDS: Brimonidine 0.15% 50 DROP/5 ML BOTTLE OD SCH ×3 (10:00→17:46)
[2017-06-08] MEDS: Oxychlorosene Topical 2 gm Packet TOP SCH ×2 (10:00→21:55)
[2017-06-08] MEDS: Dorzolamide 2%/Timolol 0.5% 100 DROP/10 ML BOTTLE OD SCH ×2 (10:00→17:48)
--- NOTE | 2017-06-08 14:04 | PN ---
DATE: SUBJECTIVE: The patient is presently having an angiogram of his lower extremity, right side. He was prepared with IV fluid hydration and Mucomyst. MEDICATIONS: Medication list reviewed. The patient is currently on acetylcysteine, eyedrops, Coreg, digoxin, Ecotrin, Feosol, insulin, Lipitor, Lovenox, Maxipime, Norvasc, Protonix, half-normal saline 75 mL an hour and IV vancomycin. OBJECTIVE: VITAL SIGNS: Blood pressure 147/63, temperature 98.4, respiratory rate is 20 with a pulse of 69. HEENT: Normocephalic, atraumatic. Conjunctivae pale. Sclerae nonicteric. NECK: Supple. No neck vein distention. CHEST: Clear to auscultation and percussion. No rales, rhonchi or wheezing. CARDIOVASCULAR: Regular rate and rhythm without audible murmurs, rubs or gallops. ABDOMEN: Soft. Bowel sounds normal. No rebound. No guarding or masses. EXTREMITIES: Show a dressing over his right foot with trace to 1+ edema of his right lower extremity with diminished pulses bilaterally. LABORATORY DATA AND IMAGING: CBC today: White blood cell count 4.2, hemoglobin 9.0 with a platelet count of 126,000. Chemistry showed normal electrolytes. BUN 36 with a creatinine of 1.8, within his baseline range. Glucose is 187. Calcium is 9.1. Liver enzymes are normal. Last vancomycin trough level was more acceptable at 12.9. Vancomycin dose was decreased. Microbiology was positive for coag-negative Staph from the right foot wound. Bone scans from acute care were positive for increased uptake consistent with osteomyelitis of the right foot. ASSESSMENT: 1. Chronic kidney disease stage 3. Creatinine is stable in the 1.7 to 1.8 range. This is in the setting of known diabetic nephropathy. 2. History of udi-byiiclt-cgskaiyqe diabetes mellitus, currently on insulin. 3. History of diabetic retinopathy, diabetic neuropathy and diabetic nephropathy. 4. Past history of type IV renal tubular acidosis. Potassium levels are presently normal. The patient will obviously avoid RONALDO inhibitors or angiotensin receptor blockers. 5. Atrophic left kidney, stable. 6. History of anemia, in part secondary to chronic kidney disease. The patient will continue Aranesp, but his last dose was 60 mcg on 06/05/2017. He will be redosed again on 06/12/2017. 7. Right foot ulcer, nonhealing with metatarsophalangeal joint possible osteomyelitis. I will continue prolonged course of IV antibiotic therapy. 8. History of secondary hyperparathyroidism. At present, the patient is not on binder therapy. Calcium, phosphorus levels are normal. 9. History of atherosclerotic heart disease, status post coronary artery bypass graft, five vessel, stable. 10. Hyperlipidemia, stable on statin therapy. 11. Elevated vancomycin level noted. The patient's vancomycin dose was decreased under the guidance of Infectious Disease. PLAN: 1. I would continue IV fluid hydration through the rest of the day today, then IV fluids may be discontinued. Mucomyst may be discontinued after tomorrow's doses. We will need to monitor his BUN and creatinine closely in the 24-48 hour period post the angiogram. 2. Aranesp and iron therapy to continue. 3. Continue to monitor labs closely. 4. Duration of antibiotics as per Infectious Disease. Meek Peterson MD
--- NOTE | 2017-06-08 14:07 | CP.PCM.PN ---
Subjective - Date & Time of Evaluation Date of Evaluation: 06/08/17 Time of Evaluation: 14:00 - Subjective Subjective: Infectious Disease Follow Up: June 08, 2017 77 yo male with history of left foot osteomyelitis treated with IV antibiotics. The right foot has ulceration that was noted in wound care in March 2017. Multiple cultures from wound care center of the right foot ulcer showing growth of MSSA, Enterobacter, and Klebsiella over the past year. Last cultuers taken showed MSSA. The patient denies fevers or chills. No other complaints. He was placed in a cast while receiving PO antibiotics of Augmentin for 28 days. When cast was removed, the patient still had purulent drainage from ulceration in the base of the 5th toe lateral metaphalangeal area. Bone Scan done. Official reading positive for osteomyelitis of the 5th metatarsal on the right foot. At this time no further surgery by Podiatry. Spoke with Dr. Marie. Needs 6 weeks of IV antibiotics. Noted patient is soaking the foot as per PMD orders. Noted WBC going towards leukopenia... currently at 4.2 today. Objective - Vital Signs/Intake and Output Vital Signs (last 24 hours): Temp Pulse Resp BP Pulse Ox 98.4 F 69 69 H 147/63 94 L 06/08/17 06:00 06/08/17 06:45 06/08/17 06:00 06/08/17 06:46 06/07/17 18:52 - Medications Medications: Current Medications Acetylcysteine (Acetylcysteine 20%) 3 ml PO Q12 [facility] Stop: 06/09/17 22:01 Last Admin: 06/08/17 10:00 Dose: Not Given Amlodipine Besylate (Norvasc) 10 mg PO DAILY [facility] PRN Reason: Protocol Last Admin: 06/08/17 11:46 Dose: Not Given Aspirin (Ecotrin) 81 mg PO 0800 [facility] PRN Reason: Protocol Last Admin: 06/08/17 10:00 Dose: Not Given Atorvastatin Calcium (Lipitor) 10 mg PO DIN [facility] PRN Reason: Protocol Last Admin: 06/07/17 17:38 Dose: 10 mg Brimonidine Tartrate (Alphagan P 0.15% Opht) 1 drop OD TID [facility] PRN Reason: Protocol Last Admin: 06/08/17 10:00 Dose: Not Given Carvedilol (Coreg) 3.125 mg PO 0800,1800 [facility] PRN Reason: Protocol Last Admin: 06/08/17 08:34 Dose: Not Given Digoxin (Digoxin) 0.125 mg PO 1400 [facility] PRN Reason: Protocol Last Admin: 06/07/17 14:07 Dose: 0.125 mg Dorzolamide/Timolol (Cosopt 2%-0.5% Opht) 1 drop OD BID [facility] PRN Reason: Protocol Last Admin: 06/08/17 10:00 Dose: Not Given Enoxaparin Sodium (Lovenox) 40 mg SC 0630 [facility] PRN Reason: Protocol Last Admin: 06/08/17 06:47 Dose: Not Given Ferrous Sulfate (Feosol) 324 mg PO TID [facility] PRN Reason: Protocol Last Admin: 06/08/17 10:00 Dose: Not Given Sodium Chloride (Sodium Chloride 0.45%) 1,000 mls @ 75 mls/hr IV .[id number] [facility] Stop: 06/09/17 12:00 Last Admin: 06/07/17 14:07 Dose: 75 mls/hr Cefepime HCl (Maxipime 1gm) 1 gm in 100 mls @ 100 mls/hr IVPB 0600 [facility] PRN Reason: Protocol Stop: 06/11/17 06:59 Last Admin: 06/08/17 05:01 Dose: 100 mls/hr Vancomycin HCl (Vancomycin 1gm) 1 gm in 250 mls @ 167 mls/hr IVPB 0600 [facility] PRN Reason: Protocol Stop: 06/11/17 07:30 Last Admin: 06/08/17 05:05 Dose: 167 mls/hr Insulin Human Regular (Humulin R Med) 0 units SC ACHS [facility] PRN Reason: Protocol Last Admin: 06/08/17 11:49 Dose: Not Given Oxychlorosene Sodium (Clorpactin Wcs-90) 2 gm TOP 1000,2200 [facility] PRN Reason: Protocol Last Admin: 06/08/17 10:00 Dose: Not Given Pantoprazole Sodium (Protonix Ec Tab) 40 mg PO 0600 [facility] PRN Reason: Protocol Last Admin: 06/08/17 05:04 Dose: 40 mg - Labs Labs: 06/08/17 06:30 06/08/17 06:30 PT 13.6 SECONDS (9.4-12.5) H 06/07/17 06:45 INR 1.18 (0.93-1.08) H 06/07/17 06:45 APTT 34.0 Seconds (25.1-36.5) 06/07/17 06:45 - Constitutional Appears: Non-toxic, No Acute Distress, Chronically Ill - Head Exam Head Exam: ATRAUMATIC, NORMOCEPHALIC - Eye Exam Eye Exam: EOMI, PERRL Pupil Exam: NORMAL ACCOMODATION, PERRL - ENT Exam ENT Exam: Mucous Membranes Moist, Normal External Ear Exam, TM's Normal Bilaterally - Neck Exam Neck Exam: Full ROM, Normal Inspection - Respiratory Exam Respiratory Exam: Clear to Ausculation Bilateral, NORMAL BREATHING PATTERN. absent: Rales, Rhonchi, Wheezes - Cardiovascular Exam Cardiovascular Exam: REGULAR RHYTHM, RRR, +S1, +S2 - GI/Abdominal Exam GI & Abdominal Exam: Soft, Normal Bowel Sounds. absent: Distended, Tenderness - Extremities Exam Extremities Exam: Full ROM Additional comments: Peripheral neuropathy of bilateral lower extremities. Edema of the right foot, ankle, lower leg. right foot ulceration near base of 5th toe lateral metaphalangeal area stage 2-3 with possible tract As per podiatry: ulceration full thickness noted to the plantar aspect of 5th right MPJ, measuring approximately 2 cm x 1.8 cm x .3 cm. Wound base is 90% fibrotic and 10 % necrotic with decrease in periwound maceration. No malodor. No purulence. No abscess or fluctanance noted. No edema, erythema, no ascending cellulitis noted. Skin is thin, shiny, and discolored bilaterally - Neurological Exam Neurological Exam: Alert, Awake, CN II-XII Intact, Oriented x3 - Psychiatric Exam Psychiatric exam: Normal Affect, Normal Mood - Skin Skin Exam: Intact, Normal Color Additional comments: except for right foot as listed above. Assessment and Plan - Assessment and Plan (Free Text) Assessment: 77 yo male with history of DM, HTN, CAD, and Chronic CHF and possible PVD with non healing right lateral foot ulceration that is Stage III with potential sinus tract with tracking to bone. Cannot rule out osteomyeltis. Cultures of the foot in the last 2 months had shown MSSA. Was on Augmentin for 28 day course doses at 875mg q6hrs. At this time, Continue with Cefepime and Vancomycin to cover for gram negative including Pseudomonas and potential MRSA. The patient should be worked up for osteomyelitis. Patient cannot get MRI due to pacemaker. Bone scan showing increased uptake consistent with osteomyelitis in the right foot 5th metatarsal. Blood cultures negative to date. Wound culture with coagulase negative staph. Continue broad spectrum coverage. Supportive care. Consider 6 weeks cefepime and IV Vancomycin. Check levels of Vancomycin. Recheck levels in the morning. May need to decrease Vancomycin dosing. Noted WBC have been trending very low and now at 4.2. Vancomycin trough of 12.9 today. ESR of 76 today. Thank you for allowing me to participate in the care of the patient, we will follow with you.
--- NOTE | 2017-06-08 15:21 | PN ---
DATE: 06/08/2017 LOCATION: The patient in room 316, bed 1. REASON FOR CONSULTATION AND FOLLOWUP: Coronary artery disease, history of bypass surgery, pacemaker insertion, mitral valve repair, closure of small PFO, renal dysfunction, peripheral arterial disease with an open ulcer on the foot with possibility of osteomyelitis. SUBJECTIVE: The patient is lying flat in bed without any cardiac symptoms like chest pain, shortness of breath or palpitations. The patient is scheduled for angiography today. PHYSICAL EXAMINATION: VITAL SIGNS: Blood pressure 147/63, respirations 20, pulse 59, temperature 98.4. HEENT: Head is normocephalic. Eyes: Pupils normal. Conjunctivae slightly pale. NECK: JVP low. Carotids equal. THORAX: AP diameter normal. LUNGS: Clear. CARDIOVASCULAR: S1, S2. ABDOMEN: Soft, nontender. No organomegaly. EXTREMITIES: Ulcer on the right foot. LABORATORY DATA: WBC , hemoglobin 9, hematocrit 27.6, platelets 126. Sodium 139, potassium 4.5, BUN 36, creatinine 1.8, sugar 187. AST and ALT normal. Total protein and albumin normal. DIAGNOSES: Ulcer on the foot, possibility of osteomyelitis, distal of the fifth metatarsal and ulcers of proximal phalanx of the fifth toe on the right foot, peripheral arterial disease, coronary artery disease, history of coronary artery bypass surgery and angioplasties, left ventricular dysfunction, ejection fraction of 45%, history of congestive heart failure in the past, history of mitral valve repair and closure of small patent foramen ovale at the time of coronary artery bypass surgery, diabetes mellitus, hypertension, hyperlipidemia, anemia, renal dysfunction. PLAN: The patient continued to get IV fluid, carvedilol 3.125 p.o. daily, aspirin 81 mg daily, digoxin 0.125 p.o. daily, ferrous sulfate 324 daily, Lipitor 10 daily, Lovenox 40 subcu daily, cefepime 1 g IV daily, amlodipine 10 daily, Protonix 40 daily, vancomycin 1 g IV daily. Clinically, cardiac status stable, will continue to follow with you. Mary Tran MD
[2017-06-08] MEDS: Sodium Chloride 0.45% 1,000 ML IV SCH (15:29)
[2017-06-08] MEDS: Digoxin 125 mcg (0.125 mg) Tab PO SCH (15:42)
[2017-06-08 17:35] VITALS: RESP 18
--- NOTE | 2017-06-08 18:57 | CP.PCM.PN ---
<Erick Porras - Last Filed: 06/08/17 18:53> Subjective - Date & Time of Evaluation Date of Evaluation: 06/08/17 Time of Evaluation: 18:53 - Subjective Subjective: Podiatry Progress Note- Dr. Marie/Dr. Bahena 77 y.o old seen and evaluated at bedside for right foot lateral ulceration. Patient is seen resting comfortably in bed, in NAD, and AA0x3. Family memeber was at bedside during visitation. Patient is s/p revascularization this AM. Patient denies acute overnight events. Patient denies n/v/sob/cp/chills of f. Patient has no new pedal complaints at this time. Objective - Vital Signs/Intake and Output Vital Signs (last 24 hours): Temp Pulse Resp BP Pulse Ox 97.4 F L 68 18 142/64 96 06/08/17 17:34 06/08/17 17:47 06/08/17 17:34 06/08/17 17:47 06/08/17 17:34 - Medications Medications: Current Medications Acetylcysteine (Acetylcysteine 20%) 3 ml PO Q12 [facility] Stop: 06/09/17 22:01 Last Admin: 06/08/17 10:00 Dose: Not Given Amlodipine Besylate (Norvasc) 10 mg PO DAILY [facility] PRN Reason: Protocol Last Admin: 06/08/17 11:46 Dose: Not Given Aspirin (Ecotrin) 81 mg PO 0800 [facility] PRN Reason: Protocol Last Admin: 06/08/17 10:00 Dose: Not Given Atorvastatin Calcium (Lipitor) 10 mg PO DIN [facility] PRN Reason: Protocol Last Admin: 06/08/17 17:49 Dose: 10 mg Brimonidine Tartrate (Alphagan P 0.15% Opht) 1 drop OD TID [facility] PRN Reason: Protocol Last Admin: 06/08/17 17:46 Dose: 1 drop Carvedilol (Coreg) 3.125 mg PO 0800,1800 [facility] PRN Reason: Protocol Last Admin: 06/08/17 17:47 Dose: 3.125 mg Digoxin (Digoxin) 0.125 mg PO 1400 [facility] PRN Reason: Protocol Last Admin: 06/08/17 15:42 Dose: 0.125 mg Dorzolamide/Timolol (Cosopt 2%-0.5% Opht) 1 drop OD BID [facility] PRN Reason: Protocol Last Admin: 06/08/17 17:48 Dose: 1 drop Enoxaparin Sodium (Lovenox) 40 mg SC 0630 [facility] PRN Reason: Protocol Last Admin: 06/08/17 06:47 Dose: Not Given Ferrous Sulfate (Feosol) 324 mg PO TID [facility] PRN Reason: Protocol Last Admin: 06/08/17 17:48 Dose: 324 mg Sodium Chloride (Sodium Chloride 0.45%) 1,000 mls @ 75 mls/hr IV .[id number] [facility] Stop: 06/09/17 12:00 Last Admin: 06/08/17 15:29 Dose: 75 mls/hr Cefepime HCl (Maxipime 1gm) 1 gm in 100 mls @ 100 mls/hr IVPB 0600 [facility] PRN Reason: Protocol Stop: 06/11/17 06:59 Last Admin: 06/08/17 05:01 Dose: 100 mls/hr Vancomycin HCl (Vancomycin 1gm) 1 gm in 250 mls @ 167 mls/hr IVPB 0600 [facility] PRN Reason: Protocol Stop: 06/11/17 07:30 Last Admin: 06/08/17 05:05 Dose: 167 mls/hr Insulin Human Regular (Humulin R Med) 0 units SC ACHS [facility] PRN Reason: Protocol Last Admin: 06/08/17 17:45 Dose: 1 units Oxychlorosene Sodium (Clorpactin Wcs-90) 2 gm TOP 1000,2200 [facility] PRN Reason: Protocol Last Admin: 06/08/17 10:00 Dose: Not Given Pantoprazole Sodium (Protonix Ec Tab) 40 mg PO 0600 [facility] PRN Reason: Protocol Last Admin: 06/08/17 05:04 Dose: 40 mg - Labs Labs: 06/08/17 06:30 06/08/17 06:30 PT 13.6 SECONDS (9.4-12.5) H 06/07/17 06:45 INR 1.18 (0.93-1.08) H 06/07/17 06:45 APTT 34.0 Seconds (25.1-36.5) 06/07/17 06:45 - Constitutional Appears: Well, Non-toxic, No Acute Distress - Extremities Exam Extremities Exam: absent: Calf Tenderness Additional comments: Vasc: Pedal pulses palpable, absent pedal hair growth noted bilaterally, CFT delayed to all digits, edema noted to LE R>L, temperature is WNL Ortho: Pain with palpation to the right foot Derm: ulceration full thickness noted to the plantar aspect of 5th right MPJ, measuring approximately 2 cm x 1.8 cm x .3 cm. Wound base is 90% fibrotic and 10 % necrotic with decrease in periwound maceration. 5th metatarsal capsule is exposed. No malodor. No purulence. No abscess or fluctanance noted. No edema, erythema, no ascending cellulitis noted. Skin is thin, shiny, and discolored bilaterally Neuro: gross and protective sensation diminished - Neurological Exam Neurological Exam: Alert, Awake, Oriented x3 - Psychiatric Exam Psychiatric exam: Normal Affect, Normal Mood Assessment and Plan - Assessment and Plan (Free Text) Assessment: 77 y.o male with right foot lateral plantar full thickness ulceration secondary to DM, neuropathy, and pressure with OM. Patient is s/p revascularization today Plan: Patient examined and evaluated Discussed plan in detail with attending Dr. Marie Labs, chart, vitals reviewed- afebrile, absent leukocytosis Wound culture results-coagulase negative staphylococcus Bone scan taken and shows acute osseous process involving distal aspect of the 5th metatarsal/proximal phalanx right 5th digit Abx per ID for treatment of OM Cleansed ulceration with saline solution and dressed with optifoam Patient is s/p revascularization. Will debridement ulceration tomorrow with blade at bedside Recommend to stop soaking foot in Clorpactin as it interfere with wound healing at this stage ORdered orefoot offloading device- pending Patient may WBAT in forefoot offloading shoe Patient to do physical therapy with forefoot offloading shoe <Dorcas Marie - Last Filed: 06/12/17 15:54> Objective - Vital Signs/Intake and Output Vital Signs (last 24 hours): Temp Pulse Resp BP Pulse Ox 98.1 F 77 18 139/61 93 L 06/10/17 06:00 06/10/17 08:28 06/10/17 06:00 06/10/17 09:44 06/10/17 06:00 - Labs Labs: 06/10/17 06:47 06/10/17 06:47 PT 13.6 SECONDS (9.4-12.5) H 06/07/17 06:45 INR 1.18 (0.93-1.08) H 06/07/17 06:45 APTT 34.0 Seconds (25.1-36.5) 06/07/17 06:45 Attending/Attestation - Attestation I have personally seen and examined this patient.: Yes I have fully participated in the care of the patient.: Yes I have reviewed all pertinent clinical information, including history, physical exam and plan: Yes
[2017-06-09] MEDS: Cefepime 1gm in NS 100ml 1 GM/100 ML BAG IVPB SCH (05:15)
[2017-06-09] MEDS: Sodium Chloride 0.45% 1,000 ML IV SCH ×2 (05:15→08:20)
[2017-06-09] MEDS: Pantoprazole 40 mg EC Tab PO SCH (05:20)
[2017-06-09] MEDS: Enoxaparin 40 mg Syringe SC SCH (05:40)
[2017-06-09] MEDS: Vancomycin 1gm in NS 250ml 1 GM/250 ML BAG IVPB SCH (06:04)
[2017-06-09 06:19] LABS: MEAN CELL VOLUME 84.5 fl (80.0-105.0); MEAN CORPUSCULAR HEMOGLOBIN 27.4 pg (25.0-35.0); MEAN CORPUSCULAR HGB CONC 32.4 g/dl (31.0-37.0); MEAN PLATELET VOLUME 9.6 fl (7.0-11.0); RBC 3.29 10^6/uL (3.5-6.1); RED CELL DISTRIBUTION WIDTH 15.5 % (11.5-14.5); WHITE BLOOD COUNT 4.7 10^3/ul (4.5-11.0)
[2017-06-09 06:28] LABS: ALB/GLOB RATIO 0.9 (1.1-1.8); ALBUMIN 3.3 g/dL (3.0-4.8); CALCIUM 8.8 mg/dL (8.4-10.5)
--- NOTE | 2017-06-09 07:13 | CP.PCM.PN ---
Subjective - Date & Time of Evaluation Date of Evaluation: 06/09/17 Time of Evaluation: 06:30 - Subjective Subjective: Seen and examined by Dr. Willson Reason for consultation and follow up: right foot osteomyelitis, on antibiotic coverage, history of coronary artery disease post coronary bypass with mitral valve repair, PPM insertion, renal dysfunction, peripheral artery disease with right foot ulcer, history of congestive heart failure,insulin dependent diabetes subjective: doing okay, denies shortness of breath, denies chest pain Objective - Vital Signs/Intake and Output Vital Signs (last 24 hours): Temp Pulse Resp BP Pulse Ox 97.4 F L 68 18 142/64 96 06/08/17 17:34 06/08/17 17:47 06/08/17 17:34 06/08/17 17:47 06/08/17 17:34 Intake and Output: 06/09/17 06/09/17 06:59 18:59 Output Total 1900 Balance -1900 - Medications Medications: Current Medications Acetylcysteine (Acetylcysteine 20%) 3 ml PO Q12 [facility] Stop: 06/09/17 22:01 Last Admin: 06/08/17 10:00 Dose: Not Given Amlodipine Besylate (Norvasc) 10 mg PO DAILY [facility] PRN Reason: Protocol Last Admin: 06/08/17 11:46 Dose: Not Given Aspirin (Ecotrin) 81 mg PO 0800 [facility] PRN Reason: Protocol Last Admin: 06/08/17 10:00 Dose: Not Given Atorvastatin Calcium (Lipitor) 10 mg PO DIN [facility] PRN Reason: Protocol Last Admin: 06/08/17 17:49 Dose: 10 mg Brimonidine Tartrate (Alphagan P 0.15% Opht) 1 drop OD TID [facility] PRN Reason: Protocol Last Admin: 06/08/17 17:46 Dose: 1 drop Carvedilol (Coreg) 3.125 mg PO 0800,1800 [facility] PRN Reason: Protocol Last Admin: 06/08/17 17:47 Dose: 3.125 mg Digoxin (Digoxin) 0.125 mg PO 1400 [facility] PRN Reason: Protocol Last Admin: 06/08/17 15:42 Dose: 0.125 mg Dorzolamide/Timolol (Cosopt 2%-0.5% Opht) 1 drop OD BID [facility] PRN Reason: Protocol Last Admin: 03/14/18 17:48 Dose: 1 drop Enoxaparin Sodium (Lovenox) 40 mg SC 0630 [facility] PRN Reason: Protocol Last Admin: 06/09/17 05:40 Dose: 40 mg Ferrous Sulfate (Feosol) 324 mg PO TID [facility] PRN Reason: Protocol Last Admin: 06/08/17 17:48 Dose: 324 mg Sodium Chloride (Sodium Chloride 0.45%) 1,000 mls @ 75 mls/hr IV .[id number] [facility] Stop: 06/09/17 12:00 Last Admin: 06/09/17 05:15 Dose: 75 mls/hr Insulin Human Regular (Humulin R Med) 0 units SC ACHS [facility] PRN Reason: Protocol Last Admin: 06/08/17 21:55 Dose: Not Given Oxychlorosene Sodium (Clorpactin Wcs-90) 2 gm TOP 1000,2200 [facility] PRN Reason: Protocol Last Admin: 06/08/17 21:55 Dose: Not Given Pantoprazole Sodium (Protonix Ec Tab) 40 mg PO 0600 [facility] PRN Reason: Protocol Last Admin: 06/09/17 05:20 Dose: 40 mg - Labs Labs: 06/09/17 05:30 06/09/17 05:30 PT 13.6 SECONDS (9.4-12.5) H 06/07/17 06:45 INR 1.18 (0.93-1.08) H 06/07/17 06:45 APTT 34.0 Seconds (25.1-36.5) 06/07/17 06:45 - Constitutional Appears: Well, No Acute Distress - Head Exam Head Exam: NORMAL INSPECTION - Eye Exam Eye Exam: Normal appearance Pupil Exam: NORMAL ACCOMODATION - ENT Exam ENT Exam: Mucous Membranes Moist - Neck Exam Neck Exam: Normal Inspection - Respiratory Exam Respiratory Exam: Clear to Ausculation Bilateral, NORMAL BREATHING PATTERN - Cardiovascular Exam Cardiovascular Exam: REGULAR RHYTHM, +S1, +S2 - GI/Abdominal Exam GI & Abdominal Exam: Soft, Normal Bowel Sounds - Extremities Exam Additional comments: right foot ulcer - Neurological Exam Neurological Exam: Alert, Awake, Oriented x3 - Psychiatric Exam Psychiatric exam: Normal Affect, Normal Mood - Skin Skin Exam: Normal Color Assessment and Plan - Assessment and Plan (Free Text) Assessment: Impression:history of coronary artery disease post coronary bypass with mitral valve repair, PPM insertion, renal dysfunction, peripheral artery disease with right foot ulcer, history of congestive heart failure,insulin dependent diabetes ,right foot osteomyelitis, on antibiotic coverage Plan: Blood pressure and heart rate stable. Stable cardiac carter Continue current medications-ASA 81 mg,Lipitor 10 mg,Coreg 3.125 mg,Digoxin 0.125mg and Lovenox 40 mg Urine output adequate Potassium level WNL Will follow up Plan and treatment discussed with Dr. Willson
[2017-06-09] MEDS: Insulin Reg-MEDIUM-Coverage SC SCH ×4 (07:51→22:01)
[2017-06-09] MEDS: Dorzolamide 2%/Timolol 0.5% 100 DROP/10 ML BOTTLE OD SCH ×2 (09:44→17:46)
[2017-06-09] MEDS: Brimonidine 0.15% 50 DROP/5 ML BOTTLE OD SCH ×2 (09:47→17:47)
[2017-06-09] MEDS: Oxychlorosene Topical 2 gm Packet TOP SCH ×2 (13:28→22:00)
[2017-06-09] MEDS: Digoxin 125 mcg (0.125 mg) Tab PO SCH (14:00)
--- NOTE | 2017-06-09 14:32 | PN ---
DATE: SUBJECTIVE: The patient is currently seen 1 day status post right lower extremity angiogram with atherectomy and angioplasty of the right popliteal artery and right tibioperoneal artery. The patient tolerated the procedure well. He continues on IV fluid hydration, which will be discontinued. His creatinine is stable at 1.6. He does have edema of his lower extremity bilaterally. MEDICATIONS: Medication list reviewed. The patient is currently on acetylcysteine, this will be the last day; eyedrops; Coreg; digoxin; Ecotrin; Feosol; insulin; Lipitor; Lovenox; Norvasc and Protonix. OBJECTIVE: VITAL SIGNS: Blood pressure 149/65, temperature 97.4, respiratory rate 18 with a pulse of 75. HEENT: Shows him to be normocephalic, atraumatic. Conjunctivae are pale. Sclerae are nonicteric. NECK: Supple. No neck vein distention. CHEST: Clear to auscultation and percussion. No rales, rhonchi or wheezing. CARDIOVASCULAR: Regular rate and rhythm without audible murmurs, rubs or gallops. ABDOMEN: Soft. Bowel sounds are normal. No rebound, guarding or masses. EXTREMITIES: Show 1+ pitting edema of his lower extremity bilaterally. LABORATORY DATA AND IMAGING: The patient is status post a right lower extremity angiogram yesterday, which showed severe distal popliteal trifurcation and tibial occlusive disease. He is status post right popliteal artery atherectomy and angioplasty. He is status post right tibioperoneal atherectomy and angioplasty. He is also status post right upper extremity PICC line placement. Labs. CBC, white blood cell count today stable at 4.7, hemoglobin stable at 9, platelet count is 143,000. Chemistry showed normal electrolytes. BUN 33 with a creatinine of 1.6 at the lower range of his baseline, likely secondary to continued hydration. Glucose is 153. Calcium is 8.8. Liver enzymes are normal. Albumin is 3.3. Bone scans from acute care were positive for increased uptake consistent with osteomyelitis of his right foot. Microbiology was positive for coag-negative Staph from the right foot wound. ASSESSMENT: 1. Chronic kidney disease stage 3, stable. Creatinine is slightly below baseline levels of 1.7-1.8, it is currently 1.6. This will likely come back up with discontinuation of IV fluid hydration. The patient has a history of diabetic nephropathy. 2. History of [id number] diabetes mellitus, currently on insulin. 3. History of diabetic retinopathy, neuropathy and diabetic nephropathy. 4. History of type IV renal tubular acidosis. Potassium levels are presently normal. The patient will avoid angiotensin-converting enzyme inhibitors and angiotensin receptor blockers. 5. Atrophic left kidney, stable. 6. History of anemia, in part secondary to chronic kidney disease. The patient will continue Aranesp. He is next to be dosed with 60 mcg on 06/12/2017. The patient will continue oral iron supplementation. 7. Right foot ulcer nonhealing with metatarsophalangeal joint osteomyelitis. The patient will continue IV antibiotic therapy. He currently has a new right upper extremity peripherally inserted central catheter line. 8. History of secondary hyperparathyroidism. Continue to monitor calcium and phosphorus levels. We will start binder therapy when necessary. 9. History of atherosclerotic heart disease, status post coronary artery bypass graft, five vessel, stable. 10. Hyperlipidemia, stable on statin therapy. 11. Elevated vancomycin level. The patient's vancomycin dose was adjusted. PLAN: 1. As per Infectious Disease, continue IV antibiotic therapy. 2. Today is the last dose of Mucomyst and IV fluids may be discontinued. 3. Continue Aranesp and iron therapy. 4. Continue to monitor labs on a regular basis. Meek Peterson MD
--- NOTE | 2017-06-09 15:47 | CP.PCM.PN ---
Subjective - Date & Time of Evaluation Date of Evaluation: 06/09/17 Time of Evaluation: 14:30 - Subjective Subjective: Infectious Disease Follow Up: June 09, 2017 77 yo male with history of left foot osteomyelitis treated with IV antibiotics. The right foot has ulceration that was noted in wound care in March 2017. Multiple cultures from wound care center of the right foot ulcer showing growth of MSSA, Enterobacter, and Klebsiella over the past year. Last cultuers taken showed MSSA. The patient denies fevers or chills. No other complaints. He was placed in a cast while receiving PO antibiotics of Augmentin for 28 days. When cast was removed, the patient still had purulent drainage from ulceration in the base of the 5th toe lateral metaphalangeal area. Bone Scan done. Official reading positive for osteomyelitis of the 5th metatarsal on the right foot. At this time no further surgery by Podiatry. Spoke with Dr. Marie. Needs 6 weeks of IV antibiotics. Noted patient is soaking the foot as per PMD orders. Noted WBC showing borderline leukopenia... currently at 4.7 today. Objective - Vital Signs/Intake and Output Vital Signs (last 24 hours): Temp Pulse Resp BP Pulse Ox 98.2 F 77 18 157/70 H 91 L 06/09/17 10:00 06/09/17 10:00 06/09/17 10:00 06/09/17 10:00 06/09/17 10:00 Intake and Output: 06/09/17 06/09/17 06:59 18:59 Output Total 1900 Balance -1900 - Medications Medications: Current Medications Acetylcysteine (Acetylcysteine 20%) 3 ml PO Q12 [facility]ORIS Stop: 06/09/17 22:01 Last Admin: 06/08/17 10:00 Dose: Not Given Amlodipine Besylate (Norvasc) 10 mg PO DAILY [facility] PRN Reason: Protocol Last Admin: 06/09/17 09:44 Dose: 10 mg Aspirin (Ecotrin) 81 mg PO 0800 [facility] PRN Reason: Protocol Last Admin: 06/09/17 08:20 Dose: 81 mg Atorvastatin Calcium (Lipitor) 10 mg PO DIN [facility] PRN Reason: Protocol Last Admin: 06/08/17 17:49 Dose: 10 mg Brimonidine Tartrate (Alphagan P 0.15% Opht) 1 drop OD TID [facility] PRN Reason: Protocol Last Admin: 06/09/17 09:47 Dose: 1 drop Carvedilol (Coreg) 3.125 mg PO 0800,1800 [facility] PRN Reason: Protocol Last Admin: 06/09/17 08:20 Dose: 3.125 mg Digoxin (Digoxin) 0.125 mg PO 1400 [facility] PRN Reason: Protocol Last Admin: 06/09/17 14:00 Dose: 0.125 mg Dorzolamide/Timolol (Cosopt 2%-0.5% Opht) 1 drop OD BID [facility] PRN Reason: Protocol Last Admin: 06/09/17 09:44 Dose: 1 drop Enoxaparin Sodium (Lovenox) 40 mg SC 0630 [facility] PRN Reason: Protocol Last Admin: 06/09/17 05:40 Dose: 40 mg Ferrous Sulfate (Feosol) 324 mg PO TID [facility] PRN Reason: Protocol Last Admin: 06/09/17 09:44 Dose: 324 mg Furosemide (Lasix) 40 mg PO DAILY [facility] Cefepime HCl (Maxipime 1gm) 1 gm in 100 mls @ 100 mls/hr IVPB Q24H [facility] PRN Reason: Protocol Insulin Human Regular (Humulin R Med) 0 units SC ACHS [facility] PRN Reason: Protocol Last Admin: 06/09/17 13:08 Dose: 3 units Oxychlorosene Sodium (Clorpactin Wcs-90) 2 gm TOP 1000,2200 [facility] PRN Reason: Protocol Last Admin: 06/09/17 13:28 Dose: 2 gm Pantoprazole Sodium (Protonix Ec Tab) 40 mg PO 0600 [facility] PRN Reason: Protocol Last Admin: 06/09/17 05:20 Dose: 40 mg - Labs Labs: 06/09/17 05:30 06/09/17 05:30 PT 13.6 SECONDS (9.4-12.5) H 06/07/17 06:45 INR 1.18 (0.93-1.08) H 06/07/17 06:45 APTT 34.0 Seconds (25.1-36.5) 06/07/17 06:45 - Constitutional Appears: Non-toxic, No Acute Distress - Head Exam Head Exam: ATRAUMATIC, NORMOCEPHALIC - Eye Exam Eye Exam: EOMI, PERRL Pupil Exam: NORMAL ACCOMODATION, PERRL - ENT Exam ENT Exam: Mucous Membranes Moist, Normal External Ear Exam, TM's Normal Bilaterally - Neck Exam Neck Exam: Full ROM, Normal Inspection - Respiratory Exam Respiratory Exam: Clear to Ausculation Bilateral, NORMAL BREATHING PATTERN. absent: Rales, Rhonchi, Wheezes - Cardiovascular Exam Cardiovascular Exam: REGULAR RHYTHM, RRR, +S1, +S2 - GI/Abdominal Exam GI & Abdominal Exam: Distended, Soft, Normal Bowel Sounds. absent: Tenderness - Extremities Exam Extremities Exam: Full ROM Additional comments: Peripheral neuropathy of bilateral lower extremities. Edema of the right foot, ankle, lower leg. right foot ulceration near base of 5th toe lateral metaphalangeal area stage 2-3 with possible tract As per podiatry: ulceration full thickness noted to the plantar aspect of 5th right MPJ, measuring approximately 2 cm x 1.8 cm x .3 cm. Wound base is 90% fibrotic and 10 % necrotic with decrease in periwound maceration. No malodor. No purulence. No abscess or fluctanance noted. No edema, erythema, no ascending cellulitis noted. Skin is thin, shiny, and discolored bilaterally - Neurological Exam Neurological Exam: Alert, Awake, CN II-XII Intact, Oriented x3 - Psychiatric Exam Psychiatric exam: Normal Affect, Normal Mood - Skin Skin Exam: Intact, Normal Color Additional comments: except for right foot as listed above. Assessment and Plan - Assessment and Plan (Free Text) Assessment: 77 yo male with history of DM, HTN, CAD, and Chronic CHF and possible PVD with non healing right lateral foot ulceration that is Stage III with potential sinus tract with tracking to bone. Cannot rule out osteomyeltis. Cultures of the foot in the last 2 months had shown MSSA. Was on Augmentin for 28 day course doses at 875mg q6hrs. At this time, Continue with Cefepime and Vancomycin to cover for gram negative including Pseudomonas and potential MRSA. The patient should be worked up for osteomyelitis. Patient cannot get MRI due to pacemaker. Bone scan showing increased uptake consistent with osteomyelitis in the right foot 5th metatarsal. Blood cultures negative to date. Wound culture with coagulase negative staph. Continue broad spectrum coverage. Supportive care. Consider 6 weeks cefepime and IV Vancomycin. Check levels of Vancomycin. Recheck levels in the morning. May need to decrease Vancomycin dosing. Noted WBC have been trending very low and now at 4.2. Vancomycin trough of 12.9 on last check. ESR of 76 on last check... I would strongly consider stopping the prolonged bleach soaking. Thank you for allowing me to participate in the care of the patient, we will follow with you.
--- NOTE | 2017-06-09 17:32 | CP.PCM.PN ---
<Erick Porras - Last Filed: 06/09/17 17:27> Subjective - Date & Time of Evaluation Date of Evaluation: 06/09/17 Time of Evaluation: 17:27 - Subjective Subjective: Podiatry Progress Note- Dr. Marie/Dr. Bahena 77 y.o old seen and evaluated at bedside for right foot lateral ulceration. Patient is seen resting in the chair and feet soaked in bucket. Patient is in NAD, and AA0x3. Family memeber was at bedside during visitation. Patient is 1 day s/p revascularization. Patient denies acute overnight events. Patient denies n/v/sob/cp/chills of f. Patient has no new pedal complaints at this time. Objective - Vital Signs/Intake and Output Vital Signs (last 24 hours): Temp Pulse Resp BP Pulse Ox 98.2 F 77 18 157/70 H 91 L 06/09/17 10:00 06/09/17 10:00 06/09/17 10:00 06/09/17 10:00 06/09/17 10:00 Intake and Output: 06/09/17 06/09/17 06:59 18:59 Output Total 1900 Balance -1900 - Medications Medications: Current Medications Acetylcysteine (Acetylcysteine 20%) 3 ml PO Q12 DORIS Stop: 06/09/17 22:01 Last Admin: 06/08/17 10:00 Dose: Not Given Amlodipine Besylate (Norvasc) 10 mg PO DAILY DORIS PRN Reason: Protocol Last Admin: 06/09/17 09:44 Dose: 10 mg Aspirin (Ecotrin) 81 mg PO 0800 DORIS PRN Reason: Protocol Last Admin: 06/09/17 08:20 Dose: 81 mg Atorvastatin Calcium (Lipitor) 10 mg PO DIN DORIS PRN Reason: Protocol Last Admin: 06/08/17 17:49 Dose: 10 mg Brimonidine Tartrate (Alphagan P 0.15% Opht) 1 drop OD TID DORIS PRN Reason: Protocol Last Admin: 06/09/17 09:47 Dose: 1 drop Carvedilol (Coreg) 3.125 mg PO 0800,1800 DORIS PRN Reason: Protocol Last Admin: 06/09/17 08:20 Dose: 3.125 mg Digoxin (Digoxin) 0.125 mg PO 1400 DORIS PRN Reason: Protocol Last Admin: 06/09/17 14:00 Dose: 0.125 mg Dorzolamide/Timolol (Cosopt 2%-0.5% Opht) 1 drop OD BID DORIS PRN Reason: Protocol Last Admin: 06/09/17 09:44 Dose: 1 drop Enoxaparin Sodium (Lovenox) 40 mg SC 0630 DORIS PRN Reason: Protocol Last Admin: 06/09/17 05:40 Dose: 40 mg Ferrous Sulfate (Feosol) 324 mg PO TID DORIS PRN Reason: Protocol Last Admin: 06/09/17 09:44 Dose: 324 mg Furosemide (Lasix) 40 mg PO DAILY DORIS Cefepime HCl (Maxipime 1gm) 1 gm in 100 mls @ 100 mls/hr IVPB Q24H DORIS PRN Reason: Protocol Insulin Human Regular (Humulin R Med) 0 units SC ACHS DORIS PRN Reason: Protocol Last Admin: 06/09/17 13:08 Dose: 3 units Oxychlorosene Sodium (Clorpactin Wcs-90) 2 gm TOP 1000,2200 DORIS PRN Reason: Protocol Last Admin: 06/09/17 13:28 Dose: 2 gm Pantoprazole Sodium (Protonix Ec Tab) 40 mg PO 0600 DORIS PRN Reason: Protocol Last Admin: 06/09/17 05:20 Dose: 40 mg - Labs Labs: 06/09/17 05:30 06/09/17 05:30 PT 13.6 SECONDS (9.4-12.5) H 06/07/17 06:45 INR 1.18 (0.93-1.08) H 06/07/17 06:45 APTT 34.0 Seconds (25.1-36.5) 06/07/17 06:45 - Constitutional Appears: Well, Non-toxic, No Acute Distress - Extremities Exam Extremities Exam: absent: Calf Tenderness Additional comments: Vasc: Pedal pulses palpable, absent pedal hair growth noted bilaterally, CFT delayed to all digits, edema noted to LE R>L, temperature is WNL Ortho: Pain with palpation to the right foot Derm: ulceration full thickness noted to the plantar aspect of 5th right MPJ, measuring approximately 2 cm x 1.8 cm x .3 cm. Wound base is 90% fibrotic and 10 % necrotic with decrease in periwound maceration. 5th metatarsal capsule is exposed. No malodor. No purulence. No abscess or fluctanance noted. No edema, erythema, no ascending cellulitis noted. Skin is thin, shiny, and discolored bilaterally Neuro: gross and protective sensation diminished - Neurological Exam Neurological Exam: Alert, Awake, Oriented x3 - Psychiatric Exam Psychiatric exam: Normal Affect, Normal Mood Assessment and Plan - Assessment and Plan (Free Text) Assessment: 77 y.o male with right foot lateral plantar full thickness ulceration secondary to DM, neuropathy, and pressure with OM. Patient is 1 day s/p revascularization Plan: Patient examined and evaluated Discussed plan in detail with attending Dr. Marie Labs, chart, vitals reviewed- afebrile, absent leukocytosis Wound culture results-coagulase negative staphylococcus Bone scan taken and shows acute osseous process involving distal aspect of the 5th metatarsal/proximal phalanx right 5th digit Abx per ID for treatment of OM Using a dermal currette fibrotic tissue was gently debrided from the 5th metatarsal ulceration to the level of the capsule, which was the level of the ulceration prior to debridement. Patient tolerated the procedure well without incident. Patient is s/p revascularization. Recommend to stop soaking foot in Clorpactin as it interfere with wound healing at this stage ORdered forefoot offloading device- pending Patient may WBAT in forefoot offloading shoe Patient to do physical therapy with forefoot offloading shoe <Dorcas Marie - Last Filed: 06/12/17 15:59> Objective - Vital Signs/Intake and Output Vital Signs (last 24 hours): Temp Pulse Resp BP Pulse Ox 98.1 F 77 18 139/61 93 L 06/10/17 06:00 06/10/17 08:28 06/10/17 06:00 06/10/17 09:44 06/10/17 06:00 - Labs Labs: 06/10/17 06:47 06/10/17 06:47 PT 13.6 SECONDS (9.4-12.5) H 06/07/17 06:45 INR 1.18 (0.93-1.08) H 06/07/17 06:45 APTT 34.0 Seconds (25.1-36.5) 06/07/17 06:45 Attending/Attestation - Attestation I have personally seen and examined this patient.: Yes I have fully participated in the care of the patient.: Yes I have reviewed all pertinent clinical information, including history, physical exam and plan: Yes
[2017-06-10] MEDS: Enoxaparin 40 mg Syringe SC SCH (05:33)
[2017-06-10] MEDS: Pantoprazole 40 mg EC Tab PO SCH (05:33)
[2017-06-10] MEDS ORDERED: Cefepime 1gm in NS 100ml 1 GM/100 ML BAG IVPB SCH (06:00)
[2017-06-10 06:36] VITALS: PULSE 77; TEMP 98.1; O2SAT 93
[2017-06-10] MEDS: Insulin Reg-MEDIUM-Coverage SC SCH ×2 (06:42→12:01)
--- NOTE | 2017-06-10 06:58 | CP.PCM.PN ---
Subjective - Date & Time of Evaluation Date of Evaluation: 06/10/17 Time of Evaluation: 06:50 - Subjective Subjective: Seen and examined by me and Dr. Tran Reason for consultation and follow up: history of coronary artery disease post coronary bypass with mitral valve repair, PPM insertion, renal dysfunction, peripheral artery disease with right foot ulcer, history of congestive heart failure,insulin dependent diabetes,right foot osteomyelitis, on antibiotic coverage Subjective: denies chest pain, denies shortness of breath. verbalized going to Rehab today Objective - Vital Signs/Intake and Output Vital Signs (last 24 hours): Temp Pulse Resp BP Pulse Ox 98.1 F 77 18 139/61 93 L 06/10/17 06:00 06/10/17 06:00 06/10/17 06:00 06/10/17 06:00 06/10/17 06:00 Intake and Output: 06/09/17 06/10/17 18:59 06:59 Intake Total 360 Output Total 1050 Balance -690 - Medications Medications: Current Medications Amlodipine Besylate (Norvasc) 10 mg PO DAILY DORIS PRN Reason: Protocol Last Admin: 06/09/17 09:44 Dose: 10 mg Aspirin (Ecotrin) 81 mg PO 0800 DORIS PRN Reason: Protocol Last Admin: 06/09/17 08:20 Dose: 81 mg Atorvastatin Calcium (Lipitor) 10 mg PO DIN DORIS PRN Reason: Protocol Last Admin: 06/09/17 17:49 Dose: 10 mg Brimonidine Tartrate (Alphagan P 0.15% Opht) 1 drop OD TID DORIS PRN Reason: Protocol Last Admin: 06/09/17 17:47 Dose: 1 drop Carvedilol (Coreg) 3.125 mg PO 0800,1800 DORIS PRN Reason: Protocol Last Admin: 06/09/17 17:47 Dose: 3.125 mg Digoxin (Digoxin) 0.125 mg PO 1400 DORIS PRN Reason: Protocol Last Admin: 06/09/17 14:00 Dose: 0.125 mg Dorzolamide/Timolol (Cosopt 2%-0.5% Opht) 1 drop OD BID DORIS PRN Reason: Protocol Last Admin: 06/09/17 17:46 Dose: 1 drop Enoxaparin Sodium (Lovenox) 40 mg SC 0630 DORIS PRN Reason: Protocol Last Admin: 06/10/17 05:33 Dose: 40 mg Ferrous Sulfate (Feosol) 324 mg PO TID DORIS PRN Reason: Protocol Last Admin: 06/09/17 17:48 Dose: 324 mg Furosemide (Lasix) 40 mg PO DAILY DORIS Cefepime HCl (Maxipime 1gm) 1 gm in 100 mls @ 100 mls/hr IVPB Q24H DORIS PRN Reason: Protocol Last Admin: 06/10/17 05:32 Dose: 100 mls/hr Insulin Human Regular (Humulin R Med) 0 units SC ACHS DORIS PRN Reason: Protocol Last Admin: 06/10/17 06:42 Dose: 3 units Oxychlorosene Sodium (Clorpactin Wcs-90) 2 gm TOP 1000,2200 DORIS PRN Reason: Protocol Last Admin: 06/09/17 22:00 Dose: Not Given Pantoprazole Sodium (Protonix Ec Tab) 40 mg PO 0600 DORIS PRN Reason: Protocol Last Admin: 06/10/17 05:33 Dose: 40 mg - Labs Labs: 06/09/17 05:30 06/09/17 05:30 PT 13.6 SECONDS (9.4-12.5) H 06/07/17 06:45 INR 1.18 (0.93-1.08) H 06/07/17 06:45 APTT 34.0 Seconds (25.1-36.5) 06/07/17 06:45 - Constitutional Appears: Well, No Acute Distress - Head Exam Head Exam: NORMAL INSPECTION, NORMOCEPHALIC - Eye Exam Eye Exam: Normal appearance Pupil Exam: NORMAL ACCOMODATION - ENT Exam ENT Exam: Mucous Membranes Moist - Respiratory Exam Respiratory Exam: Clear to Ausculation Bilateral, NORMAL BREATHING PATTERN - Cardiovascular Exam Cardiovascular Exam: REGULAR RHYTHM, +S1, +S2 - GI/Abdominal Exam GI & Abdominal Exam: Soft, Normal Bowel Sounds - Extremities Exam Extremities Exam: Normal Capillary Refill Additional comments: right foot ulcer - Neurological Exam Neurological Exam: Alert, Awake, Oriented x3 - Psychiatric Exam Psychiatric exam: Normal Affect, Normal Mood - Skin Skin Exam: Dry, Intact, Normal Color, Warm Assessment and Plan - Assessment and Plan (Free Text) Assessment: Impression:history of coronary artery disease post coronary bypass with mitral valve repair, PPM insertion, renal dysfunction, peripheral artery disease with right foot ulcer, history of congestive heart failure,insulin dependent diabetes ,right foot osteomyelitis, on antibiotic coverage Plan: Possible discharge to rehab today Stable clinically cardiac status Continue current medications Follow up as out patient (/) Plan and treatment reviewed with Dr. Tran
[2017-06-10 06:59] LABS: HEMOGLOBIN 8.6 g/dL (14.0-18.0); MEAN CELL VOLUME 84.7 fl (80.0-105.0); MEAN CORPUSCULAR HEMOGLOBIN 27.9 pg (25.0-35.0); MEAN PLATELET VOLUME 9.3 fl (7.0-11.0); RBC 3.08 10^6/uL (3.5-6.1); RED CELL DISTRIBUTION WIDTH 15.8 % (11.5-14.5); WHITE BLOOD COUNT 4.3 10^3/ul (4.5-11.0)
[2017-06-10 07:27] LABS: ALB/GLOB RATIO 0.9 (1.1-1.8); ALBUMIN 3.2 g/dL (3.0-4.8); CALCIUM 8.6 mg/dL (8.4-10.5)
[2017-06-10] MEDS: Brimonidine 0.15% 50 DROP/5 ML BOTTLE OD SCH ×2 (09:45→13:45)
[2017-06-10] MEDS: Dorzolamide 2%/Timolol 0.5% 100 DROP/10 ML BOTTLE OD SCH (09:46)
[2017-06-10 09:49] VITALS: BP 139/61
[2017-06-10] MEDS: Oxychlorosene Topical 2 gm Packet TOP SCH (12:00)
[2017-06-10] MEDS: Digoxin 125 mcg (0.125 mg) Tab PO SCH (13:44)
[2017-06-10 13:48] VITALS: PULSE 73
--- NOTE | 2017-06-10 18:05 | CP.PCM.DIS ---
Provider - Provider Date of Admission: 06/03/17 16:53 Attending physician: Megha Milligan DO Primary care physician: Megha Milligan DO Time Spent in preparation of Discharge (in minutes): 90 Hospital Course - Lab Results Lab Results: Most Recent Lab Values WBC 4.3 10^3/ul (4.5-11.0) L 06/10/17 06:47 RBC 3.08 10^6/uL (3.5-6.1) L 06/10/17 06:47 Hgb 8.6 g/dL (14.0-18.0) L 06/10/17 06:47 Hct 26.1 % (42.0-52.0) L 06/10/17 06:47 MCV 84.7 fl (80.0-105.0) 06/10/17 06:47 MCH 27.9 pg (25.0-35.0) 06/10/17 06:47 MCHC 33.0 g/dl (31.0-37.0) 06/10/17 06:47 RDW 15.8 % (11.5-14.5) H 06/10/17 06:47 Plt Count 130 10^3/uL (120.0-450.0) 06/10/17 06:47 MPV 9.3 fl (7.0-11.0) 06/10/17 06:47 ESR 76 mm/hr (0.00-15.0) H 06/08/17 06:30 PT 13.6 SECONDS (9.4-12.5) H 06/07/17 06:45 INR 1.18 (0.93-1.08) H 06/07/17 06:45 APTT 34.0 Seconds (25.1-36.5) 06/07/17 06:45 Sodium 137 mmol/L (132-148) 06/10/17 06:47 Potassium 4.4 mmol/L (3.6-5.0) 06/10/17 06:47 Chloride 106 mmol/L (98-107) 06/10/17 06:47 Carbon Dioxide 24 mmol/L (21-33) 06/10/17 06:47 Anion Gap 12 (10-20) 06/10/17 06:47 BUN 38 mg/dL (7-21) H 06/10/17 06:47 Creatinine 1.8 mg/dl (0.8-1.5) H 06/10/17 06:47 Est GFR ( Amer) 45 06/10/17 06:47 Est GFR (Non-Af Amer) 37 06/10/17 06:47 POC Glucose (mg/dL) 209 mg/dL (65-110) H 06/10/17 11:06 Random Glucose 230 mg/dL (70-110) H 06/10/17 06:47 Calcium 8.6 mg/dL (8.4-10.5) 06/10/17 06:47 Phosphorus 3.2 mg/dL (2.5-4.5) 06/07/17 06:45 Magnesium 2.2 mg/dL (1.7-2.2) 06/07/17 06:45 Iron 41 ug/dL (45-180) L 06/05/17 07:30 TIBC 227 ug/dL (261-462) L 06/05/17 07:30 % Saturation 18 % (20-55) L 06/05/17 07:30 Ferritin 90.1 ng/mL 06/05/17 07:30 Total Bilirubin 0.1 mg/dL (0.2-1.3) L 06/10/17 06:47 AST 39 U/L (17-59) 06/10/17 06:47 ALT 38 U/L (7-56) 06/10/17 06:47 Alkaline Phosphatase 115 U/L (38-126) 06/10/17 06:47 Total Protein 6.6 g/dL (5.8-8.3) 06/10/17 06:47 Albumin 3.2 g/dL (3.0-4.8) 06/10/17 06:47 Globulin 3.4 gm/dL 06/10/17 06:47 Albumin/Globulin Ratio 0.9 (1.1-1.8) L 06/10/17 06:47 25-OH Vitamin D Total 32.6 NG/ML (30.0-100.0) 06/05/17 07:30 PTH Intact Whole Molec 63 pg/mL (14-64) 06/04/17 10:45 Vancomycin Trough 12.9 ug/mL (5.0-10.0) H 06/08/17 06:30 Discharge Exam - Head Exam Head Exam: NORMAL INSPECTION, NORMOCEPHALIC Discharge Plan - Follow Up Plan Condition: GOOD Disposition: TRANSF TO SNF Instructions: Heart Failure, Adult (DC), Diabetic Foot Ulcer (DC), High Blood Pressure (DC), Peripheral Vascular (Arterial) Disease (DC), Diabetes Type 2 (DC) , Coronary Heart Disease (DC) Referrals: Megha Milligan DO [Primary Care Provider] -
--- NOTE | 2017-06-10 18:15 | CP.PCM.PN ---
Subjective - Date & Time of Evaluation Date of Evaluation: 06/10/17 Time of Evaluation: 13:00 - Subjective Subjective: Infectious Disease Follow Up: June 10, 2017 77 yo male with history of left foot osteomyelitis treated with IV antibiotics. The right foot has ulceration that was noted in wound care in March 2017. Multiple cultures from wound care center of the right foot ulcer showing growth of MSSA, Enterobacter, and Klebsiella over the past year. Last cultuers taken showed MSSA. The patient denies fevers or chills. No other complaints. He was placed in a cast while receiving PO antibiotics of Augmentin for 28 days. When cast was removed, the patient still had purulent drainage from ulceration in the base of the 5th toe lateral metaphalangeal area. Bone Scan done. Official reading positive for osteomyelitis of the 5th metatarsal on the right foot. At this time no further surgery by Podiatry. Spoke with Dr. Marie. Needs 6 weeks of IV antibiotics. Noted patient is soaking the foot as per PMD orders. Noted WBC showing borderline leukopenia... currently at 4.3 today. Objective - Vital Signs/Intake and Output Vital Signs (last 24 hours): Temp Pulse Resp BP Pulse Ox 98.1 F 77 18 139/61 93 L 06/10/17 06:00 06/10/17 08:28 06/10/17 06:00 06/10/17 09:44 06/10/17 06:00 Intake and Output: 06/10/17 06/10/17 06:59 18:59 Intake Total 360 Output Total 1050 Balance -690 - Labs Labs: 06/10/17 06:47 06/10/17 06:47 PT 13.6 SECONDS (9.4-12.5) H 06/07/17 06:45 INR 1.18 (0.93-1.08) H 06/07/17 06:45 APTT 34.0 Seconds (25.1-36.5) 06/07/17 06:45 - Constitutional Appears: Non-toxic, No Acute Distress - Head Exam Head Exam: ATRAUMATIC, NORMOCEPHALIC - Eye Exam Eye Exam: EOMI, PERRL Pupil Exam: NORMAL ACCOMODATION, PERRL - ENT Exam ENT Exam: Mucous Membranes Moist, Normal External Ear Exam, TM's Normal Bilaterally - Neck Exam Neck Exam: Full ROM, Normal Inspection - Respiratory Exam Respiratory Exam: Clear to Ausculation Bilateral, NORMAL BREATHING PATTERN. absent: Rales, Rhonchi, Wheezes - Cardiovascular Exam Cardiovascular Exam: REGULAR RHYTHM, RRR, +S1, +S2 - GI/Abdominal Exam GI & Abdominal Exam: Distended, Soft, Normal Bowel Sounds. absent: Tenderness - Extremities Exam Extremities Exam: Full ROM Additional comments: Peripheral neuropathy of bilateral lower extremities. Edema of the right foot, ankle, lower leg. right foot ulceration near base of 5th toe lateral metaphalangeal area stage 2-3 with possible tract As per podiatry: ulceration full thickness noted to the plantar aspect of 5th right MPJ, measuring approximately 2 cm x 1.8 cm x .3 cm. Wound base is 90% fibrotic and 10 % necrotic with decrease in periwound maceration. No malodor. No purulence. No abscess or fluctanance noted. No edema, erythema, no ascending cellulitis noted. Skin is thin, shiny, and discolored bilaterally - Neurological Exam Neurological Exam: Alert, Awake, CN II-XII Intact, Oriented x3 - Psychiatric Exam Psychiatric exam: Normal Affect, Normal Mood - Skin Skin Exam: Intact, Normal Color Additional comments: except for right foot as listed above. Assessment and Plan - Assessment and Plan (Free Text) Assessment: 77 yo male with history of DM, HTN, CAD, and Chronic CHF and possible PVD with non healing right lateral foot ulceration that is Stage III with potential sinus tract with tracking to bone. Cannot rule out osteomyeltis. Cultures of the foot in the last 2 months had shown MSSA. Was on Augmentin for 28 day course doses at 875mg q6hrs. At this time, Continue with Cefepime and Vancomycin to cover for gram negative including Pseudomonas and potential MRSA. The patient should be worked up for osteomyelitis. Patient cannot get MRI due to pacemaker. Bone scan showing increased uptake consistent with osteomyelitis in the right foot 5th metatarsal. Blood cultures negative to date. Wound culture with coagulase negative staph. Continue broad spectrum coverage. Supportive care. Consider 6 weeks cefepime and IV Vancomycin. Check levels of Vancomycin. Recheck levels in the morning. May need to decrease Vancomycin dosing. Noted WBC have been trending very low and now at 4.2. Vancomycin trough of 12.9 on last check. ESR of 76 on last check... I would strongly consider stopping the prolonged bleach soaking. Case discussed with Dr. Milligan in detail. Thank you for allowing me to participate in the care of the patient, we will follow with you.
== END 2017-06-10 15:09 | DRG 638 ==
LOC: TRCU 16:53
PROVIDERS: ADMIT Surgery; ATTEND Surgery
PROC: F07Z9FZ Gait Training/Functional Ambulation Treatment using Assistive, Adaptive, Supportive or Protective Equipment (ICD-10-PCS; principal; 2017-06-04)
PROC: F08Z4FZ Home Management Treatment using Assistive, Adaptive, Supportive or Protective Equipment (ICD-10-PCS; 2017-06-05)
DX: E11.621 Type 2 diabetes mellitus with foot ulcer (principal); L97.519 Non-pressure chronic ulcer of other part of right foot with unspecified severity; M86.9 Osteomyelitis, unspecified; E11.21 Type 2 diabetes mellitus with diabetic nephropathy; E11.40 Type 2 diabetes mellitus with diabetic neuropathy, unspecified; I13.0 Hypertensive heart and chronic kidney disease with heart failure and stage 1 through stage 4 chronic kidney disease, or unspecified chronic kidney disease; I50.9 Heart failure, unspecified; E11.69 Type 2 diabetes mellitus with other specified complication; E11.51 Type 2 diabetes mellitus with diabetic peripheral angiopathy without gangrene; E11.319 Type 2 diabetes mellitus with unspecified diabetic retinopathy without macular edema; E11.22 Type 2 diabetes mellitus with diabetic chronic kidney disease; N18.3 Chronic kidney disease, stage 3 (moderate); D63.1 Anemia in chronic kidney disease; I25.10 Atherosclerotic heart disease of native coronary artery without angina pectoris; N26.1 Atrophy of kidney (terminal); N25.81 Secondary hyperparathyroidism of renal origin; E78.5 Hyperlipidemia, unspecified; Z95.1 Presence of aortocoronary bypass graft; Z95.0 Presence of cardiac pacemaker; Z95.5 Presence of coronary angioplasty implant and graft

== ENCOUNTER 2017-06-08 07:17 | Day surgery (SDC) | payer MEDICARE, BC ==
[2017-06-06 14:39] VITALS: PULSE 74
[2017-06-08] MEDS ORDERED: Midazolam 2 MG/2 ML VIAL ONE ×3 (07:22→08:42)
[2017-06-08] MEDS ORDERED: Lidocaine 2% Inj (20ml) ONE (07:22)
[2017-06-08] MEDS ORDERED: Iodixanol 320 MG/ML 100 ML BOTTLE IV ONE (07:23)
[2017-06-08] MEDS ORDERED: Iodixanol 320 MG/ML 200 ML BOTTLE IV ONE (07:23)
[2017-06-08] MEDS ORDERED: HEPARIN SODIUM/NS 2,000 ML IV ONE (07:24)
[2017-06-08] MEDS ORDERED: Nitroglycerin 50mg in D5W 50 MG/250 ML BOTTLE IV ONE (07:24)
[2017-06-08] MEDS ORDERED: HEPARIN SODIUM/NS 1,000 ML IV ONE (08:43)
[2017-06-08] MEDS ORDERED: Oxycodone/Acetaminophen 5/325 mg Tab PO PRN (10:31)
[2017-06-08] MEDS ORDERED: Sodium Chloride 0.45% 1,000 ML IV SCH (10:45)
[2017-06-08 12:13] VITALS: TEMP 98.2
[2017-06-08 12:16] VITALS: O2SAT 94
[2017-06-08] MEDS ORDERED: Oxycodone/Acetaminophen 5/325 mg Tab ONE (12:25)
[2017-06-08] MEDS ORDERED: Oxycodone/Acetaminophen 5/325 mg Tab PO ONE (12:31)
[2017-06-08 14:07] VITALS: BP 150/58; RESP 20
[2017-06-08 14:18] VITALS: PULSE 70
--- NOTE | 2017-06-08 21:12 | VASCULAR ---
PROCEDURE: Ultrasound and fluoroscopically placed right upper extremity PICC line. HISTORY: Osteomyelitis right foot. Long-term IV antibiotics. Needs PICC line. PHYSICIAN(S): Zana Cook MD. TECHNIQUE: The relative risks and indications of the procedure were explained to the patient and consent obtained. The patient was placed supine on the arteriogram table and the right arm prepped and draped in the usual sterile fashion. A tourniquet was applied to the right axilla. 1% Xylocaine was used to anesthetize the skin and soft tissues at the puncture site above the elbow. The right brachial vein was punctured under direct ultrasound guidance with a micropuncture set. A 0.018 guidewire was advanced centrally and used to measure the length to the SVC/RA junction. A 5 Finnish single-lumen PICC line 44 cm long was advanced to the SVC/RA junction. The catheter was flushed and secured. The patient tolerated the procedure well. IMPRESSION: 1. Ultrasound and fluoroscopically placed right upper extremity PICC line. A 5 Finnish single-lumen PICC line 44 cm long was advanced to the SVC/RA junction.
--- NOTE | 2017-06-08 21:19 | VASCULAR ---
PROCEDURE: 1. Abdominal aortogram and selective right lower extremity runoff 2. Distal right popliteal artery jet stream atherectomy and drug-eluting balloon angioplasty 3. Right tibioperoneal trunk jet stream atherectomy, drug-eluting balloon angioplasty, and drug-eluting stent placement HISTORY: Diabetes. Renal insufficiency. Nonhealing right foot ulcer with osteomyelitis. PHYSICIAN(S): Zana Cook M.D. TECHNIQUE: The relative risks and indications of the procedure were explained to the patient and consent obtained. The patient was hydrated prior to the procedure and the appropriate labs drawn. The patient was placed supine on the arteriogram table and the left groin prepped and draped in the usual sterile fashion. Conscious sedation and monitoring were provided throughout the procedure by a nurse. Via a left common femoral artery approach, a 5 Serbian sheath was placed in the left groin. Through the sheath and over a guidewire, a 5 Serbian flush catheter was placed in the abdominal aorta at the level of the bifurcation and an RPO DSA abdominal pelvic arteriogram performed. To the patient's renal insufficiency, a bilateral runoff was not obtained. The 5 Serbian flush catheter was advanced over the bifurcation and placed in the right common femoral artery. A selective right lower extremity DSA arteriogram was performed. Distal imaging was obtained. Due to the narrow bifurcation, exchange is made for 0.035 Amplatz wire. A [address] 5 cm destination sheath was placed in the mid right SFA. Heparin and nitroglycerin were given. The multi focal disease in the terminal right popliteal artery and right tibioperoneal trunk crossed with a 5 Serbian catheter and angled Glidewire. Exchange was made for 0.014 bare support wire. Jet stream atherectomy of the terminal right popliteal artery and right tibioperoneal trunk was performed with 2.1/3.0 ofelia. An improved but suboptimal result was obtained. Terminal right popliteal artery and right tibioperoneal trunk were then dilated with 4 mm by 8 cm drug-eluting balloon. A dissection was noted in the right tibioperoneal trunk. Subsequently a 4 mm by 3.9 cm drug-eluting stent was placed in the right tibioperoneal trunk. Completion angiograms were obtained. The sheath was removed and hemostasis obtained with a Perclose device. The patient tolerated the procedure well. FINDINGS: The terminal abdominal aorta and aortic bifurcation are widely patent. The common and external iliac arteries are smoothly calcified patent. The internal iliac arteries are patent bilaterally The right common femoral arch patent. The right profunda femoral artery is hypertrophied. The right SFA is patent proximally with a mild stenosis in its proximal 3rd. There is mild disease in the adductor canal. The right popliteal artery above the knee is patent. Significant stenosis of the terminal right popliteal artery is seen. There is severe right trifurcation disease. Critical stenoses are noted in the right tibioperoneal trunk. The right anterior tibial and peroneal arteries are occluded. The right posterior tibial artery is a predominant supply to the foot. The right posterior tibial artery supplies a patent plantar arch. The right dorsalis pedis artery is not opacified. IMPRESSION: 1.Severe right distal popliteal, trifurcation, and tibial occlusive disease. 2. Successful distal right popliteal artery jet stream atherectomy and drug-eluting balloon angioplasty 3. Successful right tibioperoneal trunk jet stream atherectomy, drug-eluting balloon angioplasty, and drug-eluting stent placement. 4. Single vessel right tibial runoff via a large posterior tibial artery.
== END 2017-06-08 15:00 ==
LOC: SDSVAS 07:17
PROVIDERS: ATTEND Radiology Vascular & Interventional Radiology
DX: I70.213 Atherosclerosis of native arteries of extremities with intermittent claudication, bilateral legs (principal); E11.51 Type 2 diabetes mellitus with diabetic peripheral angiopathy without gangrene; E11.621 Type 2 diabetes mellitus with foot ulcer; E11.69 Type 2 diabetes mellitus with other specified complication; L97.519 Non-pressure chronic ulcer of other part of right foot with unspecified severity; M86.9 Osteomyelitis, unspecified; N28.9 Disorder of kidney and ureter, unspecified; Z45.2 Encounter for adjustment and management of vascular access device
CPT/HCPCS: 36569; 37225; 37231; 75710; 76937; 77001; 82948; 99152; 99153; C1725 ×3; C1751; C1757; C1760 ×2; C1769 ×5; C1874; C1884; C1887 ×4; C1894; J1644 ×2; J1940; J2250; J2405; J3010; J7030; J7120; Q9967

== ENCOUNTER 2018-04-12 13:29 | Outpatient (CLI) | payer MEDICARE, BC | END 2018-04-12 13:30 | disposition home or self-care (01) | LOC: CARDIO 13:29 ==

== ENCOUNTER 2018-04-18 14:48 | Outpatient (CLI) | payer MEDICARE, BC | END 2018-04-18 14:49 | disposition home or self-care (01) | LOC: RAD 14:48 ==

== ENCOUNTER 2018-06-08 17:27 | Outpatient (CLI) | payer MEDICARE, BC | END 2018-06-08 17:28 | disposition home or self-care (01) | LOC: CARDIO 17:27 ==

== ENCOUNTER 2018-07-06 14:00 | Outpatient (CLI) | payer MEDICARE, BC | END 2018-07-06 14:01 | disposition home or self-care (01) | LOC: CARDIO 14:00 ==